=== PATIENT | male | born 1945 | race Caucasian/White ===

== ENCOUNTER 2020-11-06 11:08 | Inpatient (IN) | payer MEDICARE, SELFPAY ==
[2020-11-06] VITALS (19 sets, daily range): BP systolic 97–143; BP diastolic 59–101; PULSE 85–117; RESP 14–25; TEMP 36.6–37.1; O2SAT 95–100; BMI 17.3
--- NOTE | 2020-11-06 11:09 | ECG_ITS ---
[facility] Test Date: 2020-11-06 Pat Name: Geo Yip Department: Room: Gender: Male Director Facilities Maintenance: : 1945 Requested By: Ab Hopkins Order Number: [id number] Sai MD: Nasim Cordero M.D. Measurements Intervals [place] Rate: 97 P: [place]: QRS: 122 QRSD: 142 T: 75 QT: 375 QTc: 478 Interpretive Statements ATRIAL FIBRILLATION MARKED RIGHT AXIS DEVIATION [QRS AXIS > 100] RIGHT BUNDLE BRANCH BLOCK [120+ ms QRS DURATION, UPRIGHT V1, 40+ ms S IN I/aVL/V4/V5/V6] Compared to ECG 01/05/2019 20:08:41 Sinus rhythm no longer present Sinus arrhythmia no longer present Myocardial infarct finding no longer present Electronically Signed On 11-06-2020 17:31:19 CDT by Nasim Cordero M.D. [id number] f
[2020-11-06 11:32] LABS: Basophils % 0.4 %; Eosinophils % 0.5 %; Hemoglobin 13.7 g/dL (11.7-16.6); Lymphocytes # 0.5 10^3/uL (0.8-4.8); Lymphocytes % 6.2 %; Mean Corpuscular HGB Conc 31.9 g/dL (30.0-36.0); Mean Corpuscular Volume 97.3 fL (80-94); Monocytes # 0.6 10^3/uL (0.2-0.9); Monocytes % 7.6 %; Neutrophils % 84.9 %; Nucleated Red Blood Cells % 0 %; Platelet Count 176 10^3/cmm (130-400); Red Blood Count 4.42 10^6/uL (4.1-5.3); Red Cell Distribution Width 13.2 % (12.1-15.1); White Blood Count 7.9 10^3/uL (4.0-10.0)
--- NOTE | 2020-11-06 11:38 | W.ED.CHESTPA ---
HPI - Chest Pain General: Chief Complaint: Chest Pain Stated Complaint: CHEST PAIN ONSET 0930 Time Seen by Provider: 11/06/20 11:09 History of Present Illness: HPI narrative: 75-year-old male presents emergency room with complaints of chest discomfort again around 930 this morning radiating into his shoulders he describes the pain as central substernal radiating up into the shoulders. He did have shortness of breath with it. He has known COPD is chronically short of breath as a baseline nonproductive cough which remains unchanged he denies any fever. He has known coronary disease and previously has had several angiograms including stenting with some in-stent stenosis that required follow-up PTCA with extension of his stents. He also has a history of atrial fibrillation he is on clopidogrel but does not list on his medications any anticoagulants. MD complaint: chest discomfort Pertinent past history: coronary artery disease Onset (ago): hour(s) Timing of current episode: episodic Prior episodes: Yes Onset: during rest Pain location: left chest Pain radiation: neck and jaw/teeth Severity: moderate Quality: tightness and heaviness Relieving factors: nitroglycerin Exacerbating factors: nothing Associated symptoms: Reports diaphoresis and dyspnea; Deny abdominal pain, fever(s), leg edema, nausea, palpitations, sense of impending doom, syncope or vomiting Treatment prior to arrival: aspirin Review of Systems Const: Reports: diaphoresis; Denies: fever(s) ENMT: Denies: throat pain, ear or mastoid pain, nasal discharge or nasal congestion Card: Denies: palpitations or syncope Resp: Reports: dyspnea GI: Denies: abdominal pain, nausea or vomiting : Denies: flank pain, dysuria, urinary frequency or urinary urgency Skin/Breast: Denies: rash or pruritus PFSH ED PFSH: Medical History Abdominal aortic aneurysm BPH (benign prostatic hyperplasia) CAD (coronary artery disease) COPD (chronic obstructive pulmonary disease) HLD (hyperlipidemia) Seizure Surgical History History of appendectomy S/P PTCA (percutaneous transluminal coronary angioplasty) Family History Other CAD (coronary artery disease) Cancer Social History Smoking and tobacco status: current every day smoker Alcohol intake: never Substance/Drug Use: never Lives independently: Yes Household members: spouse Housing: House Physical Exam Const: COMMON NORMALS: no acute distress GENERAL APPEARANCE: cooperative and comfortable ORIENTATION/CONSCIOUSNESS: Yes awake, Yes oriented to person, Yes oriented to place and Yes oriented to time HENMT: COMMON NORMALS: normocephalic, atraumatic, hearing grossly normal bilaterally and external ears normal HEAD & SCALP: normocephalic and atraumatic EXTERNAL EAR: Yes external ears normal Neck/C-Spine: COMMON NORMALS: no JVD Resp: COMMON NORMALS: normal respiratory effort, No retractions, No use of accessory muscles and clear to auscultation bilaterally AUSCULTATION: clear to auscultation bilaterally Cardio: COMMON NORMALS: no JVD, regular rate, regular rhythm and No murmurs present (Cardio) RATE: regular rate RHYTHM: regular rhythm GI: COMMON NORMALS: Soft to palpation and No hepatosplenomegaly present AUSCULTATION: Yes normoactive bowel sounds PALPATION: Yes Soft to palpation, No Tenderness to palpation present (GI), No Guarding due to palpation present (GI) and Yes No hepatosplenomegaly present Extremity: COMMON NORMALS: normal to inspection, capillary refill normal, no clubbing, cyanosis or edema, no calf tenderness and no pedal edema Neuro: SENSORIUM/ORIENTATION: Yes oriented to person, Yes oriented to place and Yes oriented to time Skin: COMMON NORMALS: no rashes or lesions noted GENERAL SKIN EXAM: no rashes or lesions noted Course Vital Signs: Vital signs: Vital Signs Temperature 98.1 F 11/08/20 07:31 Pulse Rate 57 L 11/08/20 07:31 Respiratory Rate 16 11/08/20 07:31 Blood Pressure 97/59 11/08/20 07:31 Pulse Oximetry 93 11/08/20 07:31 MDM - Chest Pain MDM Narrative: Medical decision making narrative: Chest discomfort improved with nitro he was given aspirin in route by EMS will admit for further rule out given his strong history of coronary artery disease has not had any evaluation for several years. Lab Data: Labs: Lab Results 11/06/20 11/06/20 11/06/20 Range/Units 11:24 11:24 11:24 WBC 7.9 (4.0-10.0) 10^3/ uL RBC 4.42 (4.1-5.3) 10^6/u L Hgb 13.7 (11.7-16.6) g/dL Hct 43.0 (42.0-52.0) % MCV 97.3 H (80-94) fL MCH 31.0 (28.0-34.0) pg MCHC 31.9 (30.0-36.0) g/dL RDW 13.2 (12.1-15.1) % Plt Count 176 (130-400) 10^3/c mm MPV 10.0 (7.4-10.4) fL Neut % (Auto) 84.9 % Lymph % (Auto) 6.2 % [place] % (Auto) 7.6 % Eos % (Auto) 0.5 % Baso % (Auto) 0.4 % Neut # (Auto) 6.70 (1.8-7.7) 10^3/u L Lymph # (Auto) 0.5 L (0.8-4.8) 10^3/u L [place] # (Auto) 0.6 (0.2-0.9) 10^3/u L Eos # (Auto) 0.0 (0.0-0.8) 10^3/u L Baso # (Auto) 0.0 (0.0-0.1) 10^3/u L Nucleated RBC % (a uto) 0 % Nucleated RBCs # 0.0 /100WBC D-Dimer (0-0.59) ug/mIFE U Sodium 136 (136-145) mmol/L Potassium 5.2 H (3.5-5.1) mmol/L Chloride 96 L (98-107) mmol/L Carbon Dioxide 32 H (22-29) mmol/L Anion Gap 13.2 (5-19) BUN 11 (8-23) mg/dL Creatinine 0.7 (0.7-1.2) mg/dL GFR Calculation Not Reportable Glucose 91 (65-115) mg/dL Calculated Osmolal ity 281 L (285-295) mOsm/k g Calcium 9.2 (8.5-10.5) mg/dL Iron (59-158) ug/dL TIBC mcg/dl % Saturation (20-50) % Unsat Iron Binding (112-347) ug/dL Total Bilirubin 0.4 (0.15-1.2) mg/dL AST 19 (0-40) U/L ALT 14 (0-41) U/L Alkaline Phosphata se 121 (40-130) IU/L Troponin T Baselin e 63 H (0-15) ng/L Troponin T 120 Min [place] (0-15) ng/L Delta Troponin T (0-10) ABS# NT-Pro-B Natriuret Pep (0-450) pg/mL Total Protein 6.3 L (6.6-8.7) g/dL Albumin 4.4 (3.5-5.2) g/dL Globulin 1.9 (1.3-4.6) g/dL Procalcitonin (0-0.5) ng/mL TSH (0.27-4.20) uIU/ mL Influenza Type A A g (Negative) Influenza Type B A g (Negative) 11/06/20 11/06/20 11/06/20 Range/Units 11:24 11:24 13:17 WBC (4.0-10.0) 10^3/ uL RBC (4.1-5.3) 10^6/u L Hgb (11.7-16.6) g/dL Hct (42.0-52.0) % MCV (80-94) fL MCH (28.0-34.0) pg MCHC (30.0-36.0) g/dL RDW (12.1-15.1) % Plt Count (130-400) 10^3/c mm MPV (7.4-10.4) fL Neut % (Auto) % Lymph % (Auto) % [place] % (Auto) % Eos % (Auto) % Baso % (Auto) % Neut # (Auto) (1.8-7.7) 10^3/u L Lymph # (Auto) (0.8-4.8) 10^3/u L [place] # (Auto) (0.2-0.9) 10^3/u L Eos # (Auto) (0.0-0.8) 10^3/u L Baso # (Auto) (0.0-0.1) 10^3/u L Nucleated RBC % (a uto) % Nucleated RBCs # /100WBC D-Dimer (0-0.59) ug/mIFE U Sodium (136-145) mmol/L Potassium (3.5-5.1) mmol/L Chloride (98-107) mmol/L Carbon Dioxide (22-29) mmol/L Anion Gap (5-19) BUN (8-23) mg/dL Creatinine (0.7-1.2) mg/dL GFR Calculation Glucose (65-115) mg/dL Calculated Osmolal ity (285-295) mOsm/k g Calcium (8.5-10.5) mg/dL Iron 58 L (59-158) ug/dL TIBC 197 mcg/dl % Saturation 29.4 (20-50) % Unsat Iron Binding 139 (112-347) ug/dL Total Bilirubin (0.15-1.2) mg/dL AST (0-40) U/L ALT (0-41) U/L Alkaline Phosphata se (40-130) IU/L Troponin T Baselin e (0-15) ng/L Troponin T 120 Min [place] 93.10 H (0-15) ng/L Delta Troponin T 30.10 H* (0-10) ABS# NT-Pro-B Natriuret Pep 1391 H (0-450) pg/mL Total Protein (6.6-8.7) g/dL Albumin (3.5-5.2) g/dL Globulin (1.3-4.6) g/dL Procalcitonin 0.03 (0-0.5) ng/mL TSH 2.86 (0.27-4.20) uIU/ mL Influenza Type A A g (Negative) Influenza Type B A g (Negative) 11/06/20 11/06/20 Range/Units 15:51 15:58 WBC (4.0-10.0) 10^3/ uL RBC (4.1-5.3) 10^6/u L Hgb (11.7-16.6) g/dL Hct (42.0-52.0) % MCV (80-94) fL MCH (28.0-34.0) pg MCHC (30.0-36.0) g/dL RDW (12.1-15.1) % Plt Count (130-400) 10^3/c mm MPV (7.4-10.4) fL Neut % (Auto) % Lymph % (Auto) % [place] % (Auto) % Eos % (Auto) % Baso % (Auto) % Neut # (Auto) (1.8-7.7) 10^3/u L Lymph # (Auto) (0.8-4.8) 10^3/u L [place] # (Auto) (0.2-0.9) 10^3/u L Eos # (Auto) (0.0-0.8) 10^3/u L Baso # (Auto) (0.0-0.1) 10^3/u L Nucleated RBC % (a uto) % Nucleated RBCs # /100WBC D-Dimer 1.28 H (0-0.59) ug/mIFE U Sodium (136-145) mmol/L Potassium (3.5-5.1) mmol/L Chloride (98-107) mmol/L Carbon Dioxide (22-29) mmol/L Anion Gap (5-19) BUN (8-23) mg/dL Creatinine (0.7-1.2) mg/dL GFR Calculation Glucose (65-115) mg/dL Calculated Osmolal ity (285-295) mOsm/k g Calcium (8.5-10.5) mg/dL Iron (59-158) ug/dL TIBC mcg/dl % Saturation (20-50) % Unsat Iron Binding (112-347) ug/dL Total Bilirubin (0.15-1.2) mg/dL AST (0-40) U/L ALT (0-41) U/L Alkaline Phosphata se (40-130) IU/L Troponin T Baselin e (0-15) ng/L Troponin T 120 Min [place] (0-15) ng/L Delta Troponin T (0-10) ABS# NT-Pro-B Natriuret Pep (0-450) pg/mL Total Protein (6.6-8.7) g/dL Albumin (3.5-5.2) g/dL Globulin (1.3-4.6) g/dL Procalcitonin (0-0.5) ng/mL TSH (0.27-4.20) uIU/ mL Influenza Type A A g Negative (Negative) Influenza Type B A g Negative (Negative) Discharge Plan Discharge Patient Disposition: Admitted As Inpatient Admit Provider: Carrington Mandel Clinical Impression: Unstable angina pectoris, CAD (coronary artery disease), COPD (chronic obstructive pulmonary disease) Condition: Stable Coding Level of Care Code ED Cutter Hand for g Fwd Exam Comprehensive
[2020-11-06 11:52] LABS: Troponin(5th) Baseline 63 ng/L (0-15)
[2020-11-06 11:53] LABS: Alanine Aminotransferase 14 U/L (0-41); Albumin Level 4.4 g/dL (3.5-5.2); Alkaline Phosphatase 121 IU/L (40-130); Anion Gap 13.2 (5-19); Aspartate Amino Transferase 19 U/L (0-40); Blood Urea Nitrogen 11 mg/dL (8-23); Calcium 9.2 mg/dL (8.5-10.5); Carbon Dioxide 32 mmol/L (22-29); Chloride 96 mmol/L (98-107); Globulin 1.9 g/dL (1.3-4.6); Glucose 91 mg/dL (65-115); Osmolality Calculated 281 mOsm/kg (285-295); Potassium 5.2 mmol/L (3.5-5.1); Sodium 136 mmol/L (136-145); Total Bilirubin 0.4 mg/dL (0.15-1.2); Total Protein 6.3 g/dL (6.6-8.7)
--- NOTE | 2020-11-06 13:09 | ECG_ITS ---
[facility] Test Date: 2020-11-06 Pat Name: Geo Yip Department: Room: Gender: Male Case Assistant: : 1945 Requested By: Ab Hopkins Order Number: [id number] Sai MD: Nasim Cordero M.D. Measurements Intervals [place] Rate: 100 P: [place]: QRS: 121 QRSD: 144 T: 79 QT: 370 QTc: 479 Interpretive Statements ATRIAL FIBRILLATION WITH RAPID VENTRICULAR RESPONSE MARKED RIGHT AXIS DEVIATION [QRS AXIS > 100] RIGHT BUNDLE BRANCH BLOCK [120+ ms QRS DURATION, UPRIGHT V1, 40+ ms S IN I/aVL/V4/V5/V6] PROBABLE ANTERIOR MYOCARDIAL INFARCTION [35 ms Q WAVE IN V3/V4], OF INDETERMINATE AGE Compared to ECG 11/06/2020 11:16:07 Myocardial infarct finding now present Electronically Signed On 11-06-2020 17:37:49 CDT by Nasim Cordero M.D. [id number]
[2020-11-06] MEDS: enoxaparin 60 mg/0.6 mL Syringe SUBCUT (14:08)
[2020-11-06] MEDS: nitroglycerin drip 50 MG/250 ML PREMIX IV (14:10)
[2020-11-06] MEDS: morphine 4 mg/mL SDV 1 mL 2 MG IVP ×2 (14:29→20:05)
--- NOTE | 2020-11-06 14:43 | P.HP_ITS ---
Providers/Chief Complaint Primary Care Provider: Carmelita Piper MD Chief Complaint: CHEST PAIN ONSET 929 History of Present Illness Geo Yip is a 75 year old male with past medical history of CAD, post PTCA, advanced COPD, on chronic oxygen with 3 L, BPH, seizure disorder presents to the ER today with ongoing chest pain since today morning. Patient states he has been not been feeling well for last 3 to 4 days with occasional chest heaviness and chest pain on exertion. Chest symptoms are also short-lived with difficulty in breathing on and off. He states his cough, difficulty breathing, expectoration is at baseline. Usually he gets out of breath on exertion but is able to carry his ADLs. He is currently on 3 L oxygen supplementation and is doing well on the same currently. He states today morning since around 9:30 AM he has been having more of central chest pain going bilaterally to his shoulders more so towards the left with occasional referral to the jaw as well associated with mild nausea on and off bu t no vomiting or dizziness or palpitations. Patient is not aware of history of atrial fibrillation. He denies any loss of consciousness. 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 He states there has not been change in his medications recently. He denies any fever, subjective fevers, hemoptysis, known exposure to COVID-19, denies receiving COVID-19 vaccine as well. Blood work in the ER showed a white count 7.9, hemoglobin of 13.7, sodium of 136, chloride of 96, potassium of 5.2, carbon dioxide 32, creatinine of 0.7, AST/ALT of 19/14, baseline troponin of 63 with a delta of 30 in 2 hours, EKG showing atrial fibrillation with right bundle branch block with rate of around 96 bpm. Review of Systems General: Reports: 10 or more systems reviewed and unremarkable except in HPI and below Const: Denies: fever(s), chills, body aches, change in appetite, change in weight, malaise, night sweats, diaphoresis, change in sleep pattern, daytime sleepiness or snoring Eyes: Denies: change in vision, blurry vision, photophobia, eye discomfort or eye discharge ENMT: Denies: throat pain, enlarged tonsils, hoarseness, mouth pain, oral sores, dry mouth, tinnitus, nasal congestion or post nasal drip Card: Denies: chest pain, palpitations, irregular heart rhythm, edema, swelling of feet/ankles, lightheadedness, syncope, pre-syncope, dyspnea on exertion, orthopnea, leg pain with exertion or acrocyanosis Resp: Denies: dyspnea, productive cough, non-productive cough, wheezing, stridor, pain on inspiration, change in phlegm color, hemoptysis or chest congestion GI: Denies: abdominal pain, nausea, vomiting, hematemesis, coffee ground emesis, dysphagia, heartburn, diarrhea, constipation, bloating, GI cramping, change in bowel habits, pain on defecation, hematochezia or melena : Denies: flank pain, difficulty urinating, dysuria, urinary frequency, urinary urgency, urinary hesitancy, urinary dribbling, difficulty starting urination, change in urine stream, nocturia or hematuria Musc: Denies: neck pain, back pain, extremity pain, joint pain, joint swelling, joint redness, joint stiffness or limited range of motion Neuro: Denies: headache(s), numbness in extremities, weakness in extremities, sensory changes, lack of coordination, difficulty walking, frequent falls, dizziness, vertigo, confusion, Slurred speech present, difficulty communicating thoughts or seizure-like activity Psych: Denies: anxiety, depression, mood swings, panic attacks, hopelessness or irritability Endo: Denies: polyuria, polydipsia, tired all the time, cold intolerance, excessive sweating, flushing or heat intolerance Adama/Lymph: Denies: easy bruising or easy bleeding All/Imm: Denies: tongue swelling, facial swelling or acute wheezing Medications/Allergies Home Medications Medication Instructions Recorded Confirmed Last Taken Type hxviccdmmz-qegciqqp-drlnsbwiyt 2 inh INHALATION BID 11/06/20 11/06/20 Unknown [facility] clopidogrel 75 mg PO DAILY 11/06/20 11/06/20 11/06/20 History epinephrine 0.3 mg SUBCUT ONCE PRN 11/06/20 11/06/20 Unknown History ezetimibe 10 mg PO DAILY 11/06/20 11/06/20 11/05/20 History felodipine 2.5 mg PO DAILY 11/06/20 11/06/20 11/06/20 History fluticasone propion-salmeterol 1 inh INHALATION BID 11/06/20 11/06/20 11/06/20 History [[facility]] hydrocodone-acetaminophen 1 tab PO Q6H PRN 11/06/20 11/06/20 11/06/20 History ipratropium-albuterol [Combivent 2 puff INHALATION QID 11/06/20 11/06/20 11/06/20 History Respimat] metoprolol tartrate 25 mg PO BID 11/06/20 11/06/20 11/06/20 History nitroglycerin 0.4 mg SUBLINGUAL Q5MIN PRN 11/06/20 11/06/20 Unknown History phenobarbital 97.2 mg PO BID 11/06/20 11/06/20 11/06/20 History simvastatin 80 mg PO DAILY 11/06/20 11/06/20 11/05/20 History tamsulosin 0.8 mg PO DAILY 11/06/20 11/06/20 11/06/20 History Allergies Allergy/AdvReac Type Severity Reaction Status Date / Time No Known Allergies Allergy Unverified 11/06/20 11:42 PFSH Acute PFSH: Medical History (Updated 11/06/20 @ 14:59 by Carrington Mandel MD) Abdominal aortic aneurysm BPH (benign prostatic hyperplasia) CAD (coronary artery disease) COPD (chronic obstructive pulmonary disease) HLD (hyperlipidemia) Seizure Surgical History (Updated 11/06/20 @ 14:53 by Carrington Mandel MD) History of appendectomy S/P PTCA (percutaneous transluminal coronary angioplasty) Family History (Updated 11/06/20 @ 14:53 by Carrington Mandel MD) Other CAD (coronary artery disease) Cancer Social History (Updated 11/06/20 @ 14:54 by Carrington Mandel MD) Smoking and tobacco status: current every day smoker Alcohol intake: never Substance/Drug Use: never Lives independently: Yes Household members: spouse Housing: House Vitals/I&O/Wt Last Vital Signs Temp 98.2 F 11/06/20 11:14 Pulse 98 11/06/20 13:04 Resp 18 11/06/20 14:29 BP 129/93 11/06/20 13:04 Pulse Ox 96 11/06/20 13:04 Weight last 48 hrs Weight 58.06 kg Physical Exam Narrative: EXAM NARRATIVE: General: No acute distress, AO x3, cachectic, barrel chest, on 3 L nasal cannula, thin built HEENT: PERRLA, pupils bilaterally equal and reactive Chest: Bilateral bronchial breath sounds, occasional rhonchi over the lung hercules, equal air entry all over the lung hercules CVS: S1-S2 irregularly irregular, no murmurs, tachycardia, no gallops, no rubs Abdomen: Soft, nontender, no organomegaly, bowel sounds present Neuro: No focal deficits, no facial deformity, AO x3, power 5/5 in all limbs Data : 11/06/20 11:24 11/06/20 11:24 A&P Assessment and plan (1) NSTEMI (non-ST elevated myocardial infarction): Status: Acute (2) CAD (coronary artery disease): Status: Acute (3) Chest pain: Status: Acute (4) Afib: Status: Acute (5) BPH (benign prostatic hyperplasia): Status: Acute (6) COPD (chronic obstructive pulmonary disease): Status: Acute (7) HLD (hyperlipidemia): Status: Acute Additional A&P Information 75-year-old gentleman past medical history of CAD, post PTCA, advanced COPD presented to the ER today with ongoing chest pain and found to have atrial fibrillation with RBBB with positive delta on troponins in 2 hours. Non-ST elevation DC: Continue to follow troponins. Continue with nitro GGT. Monitor blood pressures. Aspirin 325 mg once followed by 81 mg daily. Continue with Plavix, metoprolol 25 mg twice daily, statin and ezetimibe. Start patient on Lovenox 1 mg/kg body weight every 12 hourly as per creatinine clearance. Check echocardiogram. Will consult cardiology for further recommendations with possible cardiac cath. N.p.o. after midnight. Morphine as needed. Oxygen supplementation keeping saturation over 90%. Atrial fibrillation: Patient is not aware of the history in the past. Echocardiogram as above. Currently rate controlled. Continue with metoprolol. Will uptitrate metoprolol if needed. If atrial fibrillation persist will discuss with the patient regarding need of anticoagulation. COPD: No advance exacerbation for now. Continue with DuoNebs, budesonide. Oxygen supplementation. CT chest without contrast. Patient does not have any leukocytosis, is afebrile, denies any exposure to COVID-19, denies any change in cough or expectoration or difficulty in breathing at present. Chances of infectious source is low for now. Check procalcitonin, MRSA swab, sputum culture, CT chest without contrast, bacterial antigen, urine Legionella, urinalysis, rapid flu. History of seizure disorder. History of hyperlipidemia. History of BPH. Check iron panel, TSH, lipid panel, A1c, ferritin CODE STATUS: Patient states he does not want to be on life support and would not want any chest compressions as well. Patient's left is bedside as well. CODE STATUS allow natural . Cardiac diet, n.p.o. after midnight. Full dose Lovenox will help with DVT prophylaxis. Attestations Medical Necessity Statement*: Admission for more than 2 midnights for non-ST elevation DC and history of CAD, advanced COPD, new atrial fibrillation Time Spent in Patient Care: Greater than 35 minutes (>than 50% of time spent in counselling and/or direct pt care on unit) . Coding Level of Care Code Acute Faculty Research Physician for [facility] Diagnoses NSTEMI (non-ST elevated myocardial infarction) I21.4 CAD (coronary artery disease) I25.10 Chest pain R07.9 Afib I48.91 BPH (benign prostatic hyperplasia) N40.0 COPD (chronic obstructive pulmonary disease) J44.9 HLD (hyperlipidemia) E78.5
--- NOTE | 2020-11-06 14:45 | CT_ITS ---
WS: [id number] CT CHEST TECHNIQUE: Noncontrast CT of the chest with coronal and sagittal reformatted images. CLINICAL INFORMATION: copd/pna COMPARISON: CT chest and CTA 2016 DLP: 361.[address] scans at [facility] use at least one of these dose optimization techniques: automat ed exposure control; mA and/or kV adjustment per patient size (includes targeted exams where dose is matched to clinical indication); or iterative reconstruction. FINDINGS: Advanced chronic emphysematous changes. Masslike fibrotic appearing opacity in the right upper lobe p osteriorly abutting the pleura. This is new since 2016. Measures approximately 1.6 x 3.7 x 3.3 cm AP by transverse by craniocaudal. This is not amenable to CT-guided biopsy. This can be further evaluate d PET/CT. Slightly spiculated opacity in the left upper lobe likely chronic fibrosis measuring 2.0 cm but indet erminant. Several additional noncalcified subcentimeter nodules in both upper lobes anteriorly some with spicul ation. Largest lesion in the right upper lobe anteriorly measuring 9 mm. These are new since 2016. Smaller 6 mm noncalcified lesion in the left upper lobe anteriorly is stable since 2016. Interstitial thickening within the lingula likely inflammatory. Additional noncalcified nodule in the left lower lobe laterally is stable since 2016 measuring 6 mm. Interstitial thickening in the left lower lobe wi th subsegmental atelectasis. Normal caliber thoracic aorta. Aortic calcification. Coronary calcification. No mediastinal or hilar lymphadenopathy. No axillary lymphadenopathy. Partially visualized left renal cyst. CT/CT chest wo con [id number] IMPRESSION: 1. Fibrotic appearing masslike opacity in the right upper lobe posteriorly josselin r the lung apex abutting the pleura. This measures approximately approximately 1.6 x 3.7 x 3.3 cm AP by transverse by craniocaudal. This is not amenable to CT -guided biopsy. This can be further evaluated PET/CT. 2. Spiculated fibrotic appearing opacity in the left upper lobe near the lung apex measuring 2.1 cm may represent fibrosis but also nonspecific. 3. Numerous additional new subcentimeter pulmonary nodules in both upper lobes anteriorly some with suspicious imaging characteristics with spiculation. Larg est lesions measure 9 mm in the right upper lobe. These can also be further courtney luated with PET/CT. Malignancy is not excluded. 4. Additional smaller stable pulmonary nodules described above. 5. Advanced chronic emphysematous changes. 6. No acute pulmonary infiltrates. 7. No mediastinal or hilar lymphadenopathy.
[2020-11-06 16:09] LABS: NT Pro B Type Natriuretic Pept 1391 pg/mL (0-450); Procalcitonin 0.03 ng/mL (0-0.5)
--- NOTE | 2020-11-06 16:15 | PC.NURSE ---
Bedside report received from [facility]ER once patient arrived to the floor. Patient arrived via stretcher. Patient has nitro gtt running, patient has been oriented to room and call conroy, denies chest pain at this time. Nurse will continue to monitor blood pressure and chest pain.
[2020-11-06 16:20] LABS: Thyroid Stimulating Hormone 2.86 uIU/mL (0.27-4.20)
[2020-11-06 16:21] LABS: Iron 58 ug/dL (59-158); Percent Saturation 29.4 % (20-50); Total Iron Binding Capacity 197 mcg/dl; Unsaturated Iron Binding 139 ug/dL (112-347)
[2020-11-06 17:03] LABS: D Dimer 1.28 ug/mIFEU (0-0.59)
--- NOTE | 2020-11-06 17:09 | ECG_ITS ---
[facility] Test Date: 2020-11-06 Pat Name: Geo Yip Department: Room: 105 Gender: Male Education And Development Manager: : 1945 Requested By: Ab Hopkins Order Number: [id number] Sai MD: Nasim Cordero M.D. Measurements Intervals [place] Rate: 102 P: ND: QRS: 107 QRSD: 146 T: 79 QT: 338 QTc: 442 Interpretive Statements ATRIAL FIBRILLATION WITH RAPID VENTRICULAR RESPONSE MARKED RIGHT AXIS DEVIATION [QRS AXIS > 100] RIGHT BUNDLE BRANCH BLOCK [120+ ms QRS DURATION, UPRIGHT V1, 40+ ms S IN I/aVL/V4/V5/V6] POSSIBLE ANTERIOR MYOCARDIAL INFARCTION [30 ms Q WAVE IN V3/V4, OR R < 0.2 mV IN V4], OF INDETERMINATE AGE Compared to ECG 11/06/2020 13:12:38 No significant changes Electronically Signed On 11-06-2020 17:35:38 CDT by Nasim Cordero M.D. [id number]
--- NOTE | 2020-11-06 17:15 | PM.CONSULT ---
Providers/Reason For Consult Consulting Physician/Specialty*: Nasim Cordero MD/ Cardiology Reason for Consult*: NSTEMI Requesting Physician: Dr Laurent Attending Physician: Carrington Mandel MD Primary Care Provider: Carmelita Piper MD History of Present Illness History of Present Illness Geo Yip is a 75 year old male with past medical history of coronary artery disease status post PCI several years ago, advanced COPD, hypertension and hyperlipidemia has presented with chest pain symptoms since morning. He has been having on and off chest discomfort. He was put on nitro drip. Since starting the nitro drip chest pain has improved. His initial troponin was 63. It trended up to 93 at 2 hours. He has been started on Lovenox. His blood pressure is controlled. He also has been noted to be in new onset A. fib with RVR. EKG does not demonstrate ischemic changes. Review of Systems Narrative: CONSTITUTIONAL: No fever chills weight loss or gain or night sweats. [] HEENT: Normocephalic, atraumatic.[] RESPIRATORY: No cough, sputum, hemoptysis or wheezing.[] CARDIOVASCULAR: has chest pain, has shortness of breath, no PND, orthopnea, lower extremity edema, presyncope or syncope. [] GI: no nausea vomiting diarrhea. [] CATALOGUE ILLUSTRATOR: No numbness, tingling, weakness or loss of function in any part of the body. [] MUSCULOSKELETAL: No knee or joint pain or rashes. [] Meds/Allergies Home Medications and Allergies Home Medications Medication Instructions Recorded Confirmed Last Taken Type ajpreprloy-ipvojdza-spqribvwlo 2 inh INHALATION BID 11/06/20 11/06/20 Unknown History [Breztri Aerosphere] clopidogrel 75 mg PO DAILY 11/06/20 11/06/20 11/06/20 History epinephrine 0.3 mg SUBCUT ONCE PRN 11/06/20 11/06/20 Unknown History ezetimibe 10 mg PO DAILY 11/06/20 11/06/20 11/05/20 History felodipine 2.5 mg PO DAILY 11/06/20 11/06/20 11/06/20 History fluticasone propion-salmeterol 1 inh INHALATION BID 11/06/20 11/06/20 11/06/20 History [Wixela Inhub] hydrocodone-acetaminophen 1 tab PO Q6H PRN 11/06/20 11/06/20 11/06/20 History ipratropium-albuterol [Combivent 2 puff INHALATION QID 11/06/20 11/06/20 11/06/20 History Respimat] metoprolol tartrate 25 mg PO BID 11/06/20 11/06/20 11/06/20 History nitroglycerin 0.4 mg SUBLINGUAL Q5MIN PRN 11/06/20 11/06/20 Unknown History phenobarbital 97.2 mg PO BID 11/06/20 11/06/20 11/06/20 History simvastatin 80 mg PO DAILY 11/06/20 11/06/20 11/05/20 History tamsulosin 0.8 mg PO DAILY 11/06/20 11/06/20 11/06/20 History Allergies Allergy/AdvReac Type Severity Reaction Status Date / Time No Known Allergies Allergy Unverified 11/06/20 11:42 Current Medications Current Medications Generic Name Dose Route Start Last Admin Trade Name Freq PRN Reason Stop Dose Admin Nitroglycerin/Dextrose 50 mg in 250 mls @ 0 mls/hr 11/06/20 14:00 11/06/20 14:10 Nitroglycerin Drip IV 5 mcg/min .Q0M STEPHANIE 1.5 mls/hr Administration Protocol Per Protocol PFSH Acute PFSH: Medical History Abdominal aortic aneurysm BPH (benign prostatic hyperplasia) CAD (coronary artery disease) COPD (chronic obstructive pulmonary disease) HLD (hyperlipidemia) Seizure Surgical History History of appendectomy S/P PTCA (percutaneous transluminal coronary angioplasty) Family History Other CAD (coronary artery disease) Cancer Social History Smoking and tobacco status: current every day smoker Alcohol intake: never Substance/Drug Use: never Lives independently: Yes Household members: spouse Housing: House Vitals/I&O/Wt Last Vital Signs Temp 98.2 F 11/06/20 11:14 Pulse 110 H 11/06/20 15:40 Resp 21 H 11/06/20 15:40 BP 113/79 11/06/20 15:40 Pulse Ox 97 11/06/20 15:35 Weight last 48 hrs Weight 128 lb Physical Exam Narrative: EXAM NARRATIVE: GENERAL: Patient is alert, awake and oriented x3.Cachectic, barrel chest. [] NECK: No jugular vein distension. [] HEENT: No cyanosis. No icterus. No pallor. [] HEART: Irregularly irregular, tachycardia. No murmur, rub or gallop. [] LUNGS: Clear to auscultate bilaterally. [] ABDOMEN: Soft, nontender and nondistended. Positive bowel sounds. No guarding, rebound or tenderness. [] CENTRAL NERVOUS SYSTEM: Grossly nonfocal. [] EXTREMITIES: Lower extremities with 1+ edema bilaterally. Pulses palpable in the lower extremities, both dorsalis pedis and posterior tibial. [] Data Micro: Micro: Microbiology 11/06/20 15:58 Blood Culture - Pr eliminary Blood SPECIMEN [facility] 11/06/20 16:00 Blood Culture - Pr eliminary Blood SPECIMEN [facility] A&P Assessment and plan (1) NSTEMI (non-ST elevated myocardial infarction): Status: Acute (2) Afib: Status: Acute (3) HLD (hyperlipidemia): Status: Acute (4) CAD (coronary artery disease): Status: Acute (5) COPD (chronic obstructive pulmonary disease): Status: Acute Patient's presentation is consistent with NSTEMI. Chest pain is resolved with nitro drip. Continue anticoagulation. Continue aspirin and Plavix. Plan on coronary angiogram in the morning. Keep n.p.o. past midnight. Risks and benefits of the procedure have been discussed with the patient who agrees with proceeding. Trend troponins. Order echocardiogram. Thank you for involving us with the care of this patient. We will continue to follow. Please call with questions. Coding Level of Care Code Acute Camera Supervisor for [facility] Diagnoses NSTEMI (non-ST elevated myocardial infarction) I21.4 Afib I48.91 HLD (hyperlipidemia) E78.5 CAD (coronary artery disease) I25.10 COPD (chronic obstructive pulmonary disease) J44.9
[2020-11-06] MEDS: ipratropium-albuterol 3 mL Neb INHALATION (17:21)
[2020-11-06 18:00] LABS: Influenza A by IFA Negative (Negative); Influenza B by IFA Negative (Negative)
[2020-11-06] MEDS: metoprolol tartrate 50 mg Tablet PO (18:20)
[2020-11-06] MEDS: PHENobarbital 32.4 mg Tablet 97.2 MG PO (18:21)
[2020-11-06] MEDS: famotidine 20 mg/2 mL INJ IVP (18:21)
[2020-11-06 18:34] LABS: Troponin 5 6HR 180.7 ng/L (0-15); Troponin 5 6HR Delta 117.7 ng/L (0-12)
[2020-11-07] VITALS (49 sets, daily range): BP systolic 96–139; BP diastolic 58–95; PULSE 63–95; RESP 1–30; TEMP 36.6–37.1; O2SAT 82–98
--- NOTE | 2020-11-07 | XACV_ITS ---
Exam Room: [facility] Ht: 183 cm Wt: 54 kg BSA: 1.64 m2 Gender: Male : 1945 Any Known Allergies: No known allergies Exam Priority: Routine Procedure(s): Procedure Description: Diagnostic procedure Procedure Description: PCI procedure Procedure Description: Drug Eluting Coronary Stent Procedure Description: PTCA Procedure Description: Miscellaneous Procedure Description: ACT Procedure Description: Coronary Angiography Diagnostic Cath Status: Urgent Diagnostic Findings * Proximal Right Coronary Artery: chronic total occlusion, BECKY: 0 flow. Receives collaterals from the left system. * Left Main has no disease. * Mid Left Anterior Descending: obstructive 70% stenosis, BECKY: 3 flow. * Proximal Circumflex: moderate 50% stenosis, BECKY: 3 flow. * Mid Circumflex: significant 80% stenosis, BECKY: 3 flow. * 1st Diagonal: severe 90% stenosis, BECKY: 3 flow. * First Obtuse Marginal Branch Segment: significant 80% stenosis, BECKY: 3 flow. * Coronary angiography shows right dominance. PCI Status: Urgent PCI Indication: NSTE - ACS Interventional Findings * Procedure details: We engaged left main artery with a XB 3.5 guide catheter. IV heparin was administered to maintain an ACT above 250 seconds.We crossed the OM stenosis with a run-through wire. We placed a 2.5x12mm resolute [place] stent. A 0.014 run-through guidewire was used to cross the stenosis and was placed in distal LCx. 3.0x15mm semicompliant balloon was used to predilate the stenosis in the mid LCx. This was followed by placement of 3.0 x 18 mm resolute [place] drug-eluting stent. We postdilated the proximal part of stent with 3.25 x 6 mm NC balloon. At this time final angiogram was performed that showed excellent stent expansion, BECKY-3 flow and no residual stenosis. Guidewire and guide catheter were removed. Patient left the Optical Technician in a stable condition. * Mid Circumflex: 80% stenosis treated with a sapphireIIPro OTW 1.0x8, AB TREK 3.00X15 RX BALLOON, MDT R R[place] 3.0X18 RADHA, MDT NC EUPHORA RX [id number] BALLOON, and MDT R [place] 3.0X8 RADHA. 0% residual stenosis, BECKY: 3 flow. * First Obtuse Marginal Branch Segment: 80% stenosis treated with a MDT R [place] 2.5X12 RADHA. 0% residual stenosis, BECKY: 3 flow. PCI for Multi-vessel Disease: Yes Conclusions 1. Multivessel coronary artery disease. 2. Patient has residual LAD/ Diagonal disease. May require arthrectomy. Will discuss with patient the risks and benefits of the procedure, however the culprit vessel for the NSTEMI appears to be LCx/OM that have been treated with RADHA. 3. Mid Circumflex was treated with a Balloon, Balloon, Drug Eluting Stent, Balloon, and Drug Eluting Stent. 4. First Obtuse Marginal Branch Segment was treated with a Drug Eluting Stent. Recommendations * Aspirin and Plavix for atleast 1 year. * High intensity statin therapy. * Discussion with patient and family regarding the possibility of PCI of LAD/Diagonal based on his goals of care. * Outpatient cardiology follow up in 4 weeks. Interventional RX Recommendation: PCI w/o planned CABG Diagnostic RX Recommendation: PCI w/o planned CABG Anticoagulation: Heparin Pressures Phase:Rest AO : 87 / 68 ( 79 ) @ 6:38:00 AM 97 / 62 ( 78 ) @ 6:59:00 AM 144 / 108 ( 120 ) @ 7:18:00 AM 130 / 82 ( 105 ) @ 7:27:00 AM 137 / 74 ( 100 ) @ 7:38:00 AM 110 / 58 ( 79 ) @ 7:46:00 AM Clinical Evaluation EBL: 5mL-10mL Procedural Details Procedure Consent Obtained. Pre-Procedure Time Out. Identified patient by full name and date of as verbalized by the patient/guarantor. Does the consent match the physician's order: Yes. Accurate & Complete Informed Consent: Yes. Inpatient/Outpatient History & Physical on Chart: Yes. If H&P is completed, is and addenduem needed: No; If yes, is the addendum complete: N/A. Visualize and Verify Site with Patient/Guarantor: N/A. Relevant Radiology Images available: N/A. Pre-op teaching completed and patient verbalized understanding. The risks, benefits, and alternatives of sedation and/or procedure were discussed by physician. The patient agrees to continue. Procedure started. [facility] Clinical Fraility Score: 7: Severely Frail. Optical Technician Indications: ACS <= 24 hours. Chest Pain Symptom Assessment: Typical Angina Symptoms. Cardiovascular Instability: No. Correct patient, site and procedure confirmed by cath team. IV Site on Arrival: 20 gauge in the right forearm. IV Fluids: 0.9% NaCl at KVO. 0 mL infused prior to flue dust laborer. Pre Procedural Pulses: bilateral radial was 3+. Oxygen started at 3liters/min via nasal canula. right groin was prepped with chloroprep then draped in the usual sterile fashion. right radial was prepped with chloroprep then draped in the usual sterile fashion. Baseline sample Acquired. HR: 78 BPM. Equipment: 6F - Radial. Cardiac Cath Pack. ACIST Manifold Kit Model BT 2000. Heparinized Saline (2 units/mL), 1000 mL bag. Physician notified. Physician arrived. Physician scrubbed in. Immediate Pre-Procedure Time Out. Correct Patient: Yes; Correct Procedure: Yes; Correct Site: Yes; Correct Patient Position: Yes; Correct Supplies: Yes; Dried Flammable Prep: Yes; Blood Products Available: N/A;. Lidocaine 1% infiltrated to the right radial. Arterial access obtained. A 5 honduran TIG catheter in over wire. Catheter removed over the exchange wire. A 5 honduran RBL-TG 125cm catheter in over wire. Multiple views taken of right coronary artery. Catheter removed over the exchange wire. 6 honduran JL 4 guide catheter 125 cm was inserted over the wire. Inventory is TR 180cm Runthrough NS extra floppy 0.014 wire. Runthrough guidewire was advanced through the guide catheter to lesion in the mid Circ. Unable to cross lesion due to poor guide support, guidewire removed. Guide catheter out. Inventory is CRD 6 FR XB 3.5 GUIDE. 6 honduran XB 3.5 guide catheter was inserted over the wire. Runthrough guidewire was advanced through the guide catheter to lesion in the OM. ACT drawn. Results 163 seconds. Therapeutic limits - pre-heparin administration 90-150 seconds and monitoring heparin during a vascular procedure >250 seconds. Inflation Number : 1 A MDT R RICHMOND 2.5X12 RADHA -Lot Number# [id number] exp date 08/03/2022 was prepped and advanced across the 1st Ob Jo Ann. The stent was deployed at 12 YOSELYN for 0:27 seconds. Stent balloon out over wire. Results checked. Runthrough repositioned to mid Circ. Runthrough wire out to reshape. Runthrough guidewire was advanced through the guide catheter to lesion in the mid Circ. Runthrough wire out to reshape. Runthrough guidewire was advanced through the guide catheter to lesion in the mid Circ. Wire out. Sapphire II Pro OTW Balloon 1.1doz5tn inserted over the wire to give support to wire to position in circ. Inflation number : 1 A sapphireIIPro OTW 1.0x8 was prepped and advanced across the Mid CX , then inflated to 0 YOSELYN for 0:00 seconds. ACT drawn. Results 213 seconds. Therapeutic limits - pre-heparin administration 90-150 seconds and monitoring heparin during a vascular procedure >250 seconds. Wire out. Runthrough 300 cm guidewire was advanced through the guide catheter to lesion in the mid Circ. Runthrough wire out to reshape. Runthrough 300 cm guidewire was advanced through the guide catheter to lesion in the mid Circ. Runthrough wire out to reshape. Runthrough 300 cm guidewire was advanced through the guide catheter to lesion in the mid Circ. Sapphire OTW balloon out. Inflation number : 2 A AB TREK 3.00X15 RX BALLOON was prepped and advanced across the Mid CX , then inflated to 12 YOSELYN for 0:34 seconds. Balloon out. Results checked. Inflation Number : 3 A MDT R R[place] 3.0X18 RADHA -Lot Number# [id number] exp date 06/16/2022 was prepped and advanced across the Mid CX. The stent was deployed at 12 YOSELYN for 0:27 seconds. Stent balloon out over wire. 3.92clv4nm NC balloon inserted. Unable to cross lesion. Balloon out. Guideliner inserted. Inflation number : 4 A MDT NC EUPHORA RX [id number] BALLOON was prepped and advanced across the Mid CX , then inflated to 12 YOSELYN for 0:17 seconds. Inflation number: 5 The MDT NC EUPHORA RX [id number] BALLOON was reinflated across the Mid CX, to 12 YOSELYN for 0:19 seconds. Balloon out. Guideliner out. MDT R [place] 3.0x8mm stent inserted. Unable to cross lesion. Intact stent removed. Guideliner inserted. Inflation Number : 6 A MDT R [place] 3.0X8 RADHA -Lot Number# [id number] exp date 05/10/2022 was prepped and advanced across the Mid CX. The stent was deployed at 14 YOSELYN for 0:26 seconds. Inflation number: 7 The MDT NC EUPHORA RX 3.06C92OO BALLOON was reinflated across the Mid CX, to 12 YOSELYN for 0:16 seconds. Balloon out. Guideliner out. Results checked. Wire out. Guide catheter out. ACT drawn. Results 163 seconds. Therapeutic limits - pre-heparin administration 90-150 seconds and monitoring heparin during a vascular procedure >250 seconds. Physician scrubbed out. A TR Band was successful obtaining hemostatsis at the Right Radial artery insertion site. TR band placed. Hemostasis obtained. Post Procedure: Pulses reassessed and unchanged. PERRLA. Strong, equal hand mutuel department manager bilaterally. No VTE prophylaxis required. Medication's Wasted: Lidocaine 1% = 18 mL. Medication's Wasted: Nitro = 49.6 mg. Medication's Wasted: Other = versed 1 mg. Total IV fluids: 95.3 mL. Contrast type used: Visipaque 320 mgI/mL, 500 mL bottle. Medication's Wasted: Heparin = 2000 units. Post-op diagnosis: severe multi vessel CAD. PCI Indication: NSTE. Complications: none. Estimated blood loss: 5mL-10mL. Procedure completed. Patient transferred by wheelchair to 1st floor. Vital chart was stopped. Access Site Site: Right Radial artery Sheath Size: 6 Fr Hemostasis Method: TR Band Hemostasis Success: Successful Procedure Medications Start: 7:24 AM Stop: 7:24 AM Medication: Versed Amount: 1 mg Route: I.V. Start: 7:24 AM Stop: 7:24 AM Medication: Fentanyl Amount: 25 mcg Route: I.V. Start: 7:29 AM Stop: 7:29 AM Medication: Nitrogylcerin Amount: 200 mcg Route: I.A. Start: 7:31 AM Stop: 7:31 AM Medication: Heparin Amount: 5000 units Route: I.V. Start: 7:45 AM Stop: 7:45 AM Medication: Heparin Amount: 1000 units Route: I.V. Start: 7:45 AM Stop: 7:45 AM Medication: Versed Amount: 1 mg Route: I.V. Start: 7:45 AM Stop: 7:45 AM Medication: Fentanyl Amount: 25 mcg Route: I.V. Start: 7:56 AM Stop: 7:56 AM Medication: Heparin Amount: 3000 units Route: I.V. Start: 8:10 AM Stop: 8:10 AM Medication: Heparin Amount: 3000 units Route: I.V. Start: 8:11 AM Stop: 8:11 AM Medication: Versed Amount: 1 mg Route: I.V. Start: 8:11 AM Stop: 8:11 AM Medication: Fentanyl Amount: 25 mcg Route: I.V. Start: 8:23 AM Stop: 8:23 AM Medication: Versed Amount: 1 mg Route: I.V. Start: 8:23 AM Stop: 8:23 AM Medication: Fentanyl Amount: 25 mcg Route: I.V. Start: 8:34 AM Stop: 8:34 AM Medication: Versed Amount: 1 mg Route: I.V. Start: 8:37 AM Stop: 8:37 AM Medication: Nitrogylcerin Amount: 200 mcg Route: I.C. Start: 8:59 AM Stop: 8:59 AM Medication: Heparin Amount: 2000 units Route: I.V. I, the attending physician, have reviewed and verified all procedure medications. Yes, all medications given per verbal order History/Risk Factors Hypertension: Yes Dyslipidemia: Yes Peripheral Arterial Disease (PAD): No Myocardial Infarction (VT): No Obesity: No Renal Disease: No Tobacco Use: Current/Recent(w/in 1 year) Prior Interventions PCI: Yes CABG: No Valve Surgery: No Report Signatures Finalized by Nasim Cordero MD on 11/21/2020 07:39 PM
[2020-11-07] MEDS: ipratropium-albuterol 3 mL Neb INHALATION ×2 (02:21→12:41)
[2020-11-07] MEDS: morphine 4 mg/mL SDV 1 mL 2 MG IVP (02:35)
[2020-11-07 02:48] LABS: Bacteria Urine TRACE /hpf; Bilirubin Urine Neg (Negative); Blood Urine Neg (Negative); Glucose Urine UA Norm (Normal); Ketones Urine Negative (Negative); Leukocyte Esterase Urine Negative (Negative); Nitrate Urine Negative (Negative); Protein Urine Neg (Negative); RBC Urine 0-4 /hpf (0-2); Squamous Epithelial Cell Urine 0-4 /hpf (0-5); Urine Appearance Clear (CLEAR); Urine Color Yellow (Yellow); Urobilinogen Urine 4 mg/dL (Negative); WBC Urine 0-4 /hpf (0-5); pH Urine 5 (5-7)
[2020-11-07 05:23] LABS: Basophils % 0.2 %; Eosinophils # 0.1 10^3/uL (0.0-0.8); Eosinophils % 1.9 %; Hematocrit 37.9 % (42.0-52.0); Hemoglobin 12.4 g/dL (11.7-16.6); Lymphocytes # 0.5 10^3/uL (0.8-4.8); Lymphocytes % 11.1 %; Mean Corpuscular HGB Conc 32.7 g/dL (30.0-36.0); Mean Corpuscular Hemoglobin 31.9 pg (28.0-34.0); Mean Corpuscular Volume 97.4 fL (80-94); Mean Platelet Volume 10.2 fL (7.4-10.4); Monocytes # 0.4 10^3/uL (0.2-0.9); Monocytes % 8.8 %; Neutrophils # 3.69 10^3/uL (1.8-7.7); Neutrophils % 77.6 %; Nucleated Red Blood Cells % 0 %; Platelet Count 154 10^3/cmm (130-400); Red Blood Count 3.89 10^6/uL (4.1-5.3); Red Cell Distribution Width 13.2 % (12.1-15.1); White Blood Count 4.8 10^3/uL (4.0-10.0)
[2020-11-07 05:33] LABS: INR 0.99 (0.8-1.2)
[2020-11-07 05:41] LABS: Estmated Average Glucose 88; Hemoglobin A1C 4.7 % (4.0-6.0)
[2020-11-07 05:47] LABS: Alanine Aminotransferase 15 U/L (0-41); Albumin Level 3.4 g/dL (3.5-5.2); Alkaline Phosphatase 97 IU/L (40-130); Anion Gap 8.5 (5-19); Aspartate Amino Transferase 46 U/L (0-40); Blood Urea Nitrogen 16 mg/dL (8-23); Calcium 8.2 mg/dL (8.5-10.5); Carbon Dioxide 34 mmol/L (22-29); Chloride 99 mmol/L (98-107); Chol HDL Ratio 2.86 mg/dL (1.0-5.00); Cholesterol 146 mg/dL (0-200); Ferritin 628 ng/mL (30-400); Globulin 2.3 g/dL (1.3-4.6); Glucose 98 mg/dL (65-115); HDL Cholesterol 51 mg/dL (60-100); LDL Cholesterol Calculated 84 mg/dL (50-129); Magnesium 1.8 mg/dL (1.7-2.3); Osmolality Calculated 285 mOsm/kg (285-295); Phosphorus 2.9 mg/dL (2.5-4.5); Potassium 4.5 mmol/L (3.5-5.1); Sodium 137 mmol/L (136-145); Total Bilirubin 0.3 mg/dL (0.15-1.2); Total Protein 5.7 g/dL (6.6-8.7); Triglycerides 55 mg/dL (0-150); VLDL Cholestrol Calculation 11 mg/dL (0-30)
--- NOTE | 2020-11-07 06:00 | USCV_ITS ---
Geo Yip Age: 75 Gender: M : 1945 Exam Date: 11/07/2020 05:14 Ordering Phys: Carrington Mandel MD Technologist: Lucy Duncan Exam Location: [facility] [place] Indication: CHST PAIN BP: 103 / 63 HR: 51 Rhythm: Sinus Technical Quality: Adequate MEASUREMENTS (Male / Female) Normal Values 2D ECHO LV Diastolic Diameter PLAX 3.9 cm 4.2 - 5.9 / 3.9 - 5.3 cm LV Systolic Diameter PLAX 2.3 cm LV Chamber Size 3.3 cm IVS Diastolic Thickness 1.1 cm 0.6 - 1.0 / 0.6 - 0.9 cm IVS Systolic Thickness 1.6 cm LVPW Diastolic Thickness 0.9 cm 0.6 - 1.0 / 0.6 - 0.9 cm LVPW Systolic Thickness 1.4 cm RV Chamber Size 3.3 cm LVOT Diameter 2.0 cm LV Ejection Fraction 2D Teich 71.1 % LV Ejection Fraction MOD 2C 43.7 % LV Ejection Fraction 2C AL 43.2 % LA Diameter 3.7 cm LA Width 4.2 cm LA Height 5.2 cm RA Width 3.2 cm RA Height 5.8 cm Aorta at Sinotubular Diameter 2.6 cm M-MODE LV Diastolic Diameter MM 4.6 cm 4.2 - 5.9 / 3.9 - 5.3 cm LV Systolic Diameter MM 3.2 cm LV Ejection Fraction MM Teich 60.0 % IVS Diastolic Thickness MM 1.4 cm 0.6 - 1.0 / 0.6 - 0.9 cm IVS Systolic Thickness MM 1.7 cm LVPW Diastolic Thickness MM 1.3 cm 0.6 - 1.0 / 0.6 - 0.9 cm LVPW Systolic Thickness MM 1.3 cm RV Diastolic Diameter MM 1.7 cm Aortic Annulus Diameter 3.8 cm LA Ao Ratio MM 0.9 MV E Point Septal Separation 0.5 cm DOPPLER AV Peak Velocity 96.0 cm/s LVOT Peak Velocity 68.0 cm/s AV Area Cont Eq vti 2.2 cm squared AV Area Cont Eq pk 2.3 cm squared MV Area PHT 5.0 cm squared MV E' Velocity 52.5 cm/s Mitral E to MV E' Ratio 5.9 Mitral E to LV E' Lateral Ratio 7.3 Mitral E to LV E' Septal Ratio 5.0 TR Peak Velocity 240.8 cm/s TR Peak Gradient 23.2 mmHg TR Mean Velocity 175.8 cm/s TR Mean Gradient 13.8 mmHg TR Velocity Time Integral 70.3 cm TV Peak E Velocity 64.0 cm/s Right Atrial Pressure 15.0 mmHg Pulmonary Artery Systolic Pressu 38.2 mmHg PV Peak Velocity 46.0 cm/s RV Acceleration Time 0.1 s RV Ejection Time 0.3 s RV AcT/ET 0.4 FINDINGS Left Ventricle Normal left ventricular size. LV systolic function is normal with EF of 40-45%. Mild global hypokinesis. Right Ventricle The right ventricle is normal in size. Mildly reduced function Right Atrium The right atrium is normal in size. Left Atrium The left atrium is normal in size. Mitral Valve Structurally normal mitral valve without significant stenosis or prolapse. There is trace mitral regurgitation. Aortic Valve Structurally normal aortic valve without significant sclerosis or stenosis. There is no aortic regurgitation. Tricuspid Valve Structurally normal tricuspid valve without significant stenosis or regurgitation. Insufficient TR jet to calculate RVSP Pulmonic Valve Not well visualized Pericardium Normal pericardium without effusion. Aorta Normal ascending aorta dimension. CONCLUSIONS Technically difficult study because of poor ultrasonic windows LV systolic function is normal with EF of 40-45%. Mild global hypokinesis. Trace mitral regurgitation No comparison studies are available Nasim Cordero MD (Electronically Signed) Final Date: 09 November 2020 19:42 S
[2020-11-07] MEDS: diphenhydrAMINE 50 mg Capsule PO (06:03)
[2020-11-07] MEDS: famotidine 20 mg/2 mL INJ IVP ×2 (06:04→16:34)
[2020-11-07] MEDS: sodium chloride 0.9% 1,000 ML 50 ML IV (06:05)
--- NOTE | 2020-11-07 07:10 | PC.NURSE ---
Received report from KATARINA Lizarraga at bedside. Checked right radial access site together, no hematoma present, TR band in place with 15ml air. Patient has been educated regarding activity restriction of right wrist. Blood pressure set Q15min. Ptt order put in for NOW, pending results per Dr. Cordero and then will start to remove air from TR band. Nurse will continue to monitor.
--- NOTE | 2020-11-07 07:15 | PC.NURSE ---
Report received from KATARINA Luis. Patient left floor for cath procedure at 0700am. VS stable upon departure.
--- NOTE | 2020-11-07 07:23 | W.PM.OPSUD ---
Surgery/Procedure H&P Update DATE OF PROCEDURE: November 07, 2020 DATE H&P PERFORMED: 11/06/20 H&P UPDATE INFORMATION: I have reviewed H&P completed within last 30 days, I have examined patient prior to procedure and No changes to prior documentation PREOP DIAGNOSIS: NSTEMI PRIMARY INDICATION FOR PROCEDURE: NSTEMI PLANNED PROCEDURE: Left heart cath with possible percutaneous coronary intervention PATIENT REASSESSED PRIOR TO SEDATION, WITH NO CHANGE NOTED: Yes PHYSICAL EXAM: alert, oriented x 3 and regular rate & rhythm OTHER PERTINENT EXAM FINDINGS: Has wheezing AIRWAY EVAL/ANESTHESIA PLAN: normal airway, ASA IV, Monitored Anesthesia, Local Anesthesia, Risks, benefits & alternatives of sedation and/or procedure discussed and Patient agrees to continue as planned
--- NOTE | 2020-11-07 08:57 | PM.PN ---
Subjective Subjective: Interval history: No acute events overnight. Patient has remained hemodynamically stable. Patient underwent cardiac catheterization today and underwent PCI to left circumflex and OM1. He tolerated the procedure well. Vitals/I&O/Wt Last Vital Signs Temp 98.8 F 11/07/20 04:00 Pulse 80 11/07/20 06:00 Resp 25 H 11/07/20 04:00 BP 103/63 11/07/20 04:00 Pulse Ox 98 11/07/20 04:00 11/06/20 11/07/20 11/07/20 22:59 06:59 14:59 Intake Total 11.80 / 11.80 266.30 / 278.10 Output Total 500 / 500 0 / 500 Balance -488.20 / -488.20 266.30 / -221.90 Weight last 48 hrs Weight 55.293 kg Weight 58.06 kg Physical Exam Narrative: EXAM NARRATIVE: General: No acute distress, AO x3, cachectic, barrel chest, on 3 L nasal cannula, thin built HEENT: PERRLA, pupils bilaterally equal and reactive Chest: Bilateral bronchial breath sounds, occasional rhonchi over the lung hercules, equal air entry all over the lung hercules CVS: S1-S2 irregularly irregular, no murmurs, tachycardia, no gallops, no rubs Abdomen: Soft, nontender, no organomegaly, bowel sounds present Neuro: No focal deficits, no facial deformity, AO x3, power 5/5 in all limbs Data : 11/07/20 04:28 11/07/20 04:28 Micro: Microbiology 11/06/20 15:58 Blood Culture - Preliminary Blood SPECIMEN COLLECTED 11/06/20 16:00 Blood Culture - Preliminary Blood SPECIMEN COLLECTED A&P Assessment and plan (1) NSTEMI (non-ST elevated myocardial infarction): Status: Acute (2) CAD (coronary artery disease): Status: Acute (3) Chest pain: Status: Acute (4) Afib: Status: Acute (5) BPH (benign prostatic hyperplasia): Status: Acute (6) COPD (chronic obstructive pulmonary disease): Status: Acute (7) HLD (hyperlipidemia): Status: Acute (8) Multi-vessel coronary artery stenosis: Status: Acute Additional A&P Information 75-year-old gentleman past medical history of CAD, post PTCA, advanced COPD presented to the ER today with ongoing chest pain and found to have atrial fibrillation with RBBB with positive delta on troponins in 2 hours. Non-ST elevation WA: Multivessel CAD. Post PCI to left circumflex and OM1 with possible planned staged procedure to LAD versus medical management depending on symptoms. Appreciate cardiology recommendations. Continue with aspirin, Plavix, statin and ezetimibe. Continue with metoprolol 50 mg twice daily. Continue with Lovenox 1 mg KG body weight every 12 hourly. IV fluids with normal saline 50 cc/h. Cardiogram results awaited. Morphine as needed. Oxygen supplementation keeping saturation over 90%. Atrial fibrillation:Continue with metoprolol 50 mg twice daily Continue full dose Lovenox for now. Will discuss with patient regarding long-term anticoagulation as an outpatient. COPD: No advance exacerbation for now. Continue with DuoNebs, budesonide. Oxygen supplementation. Patient does not have any leukocytosis, is afebrile, denies any exposure to COVID-19, denies any change in cough or expectoration or difficulty in breathing at present. Chances of infectious source is low for now. Program negative, CT chest results appreciated, urine Legionella, and bacterial antigen negative, flu swab negative. History of seizure disorder. History of hyperlipidemia. History of BPH. CODE STATUS: Patient states he does not want to be on life support and would not want any chest compressions as well. Patient's left is bedside as well. CODE STATUS allow natural . Cardiac diet, Full dose Lovenox will help with DVT prophylaxis. Attestations Medical Necessity Statement*: Patient requires further hospitalization for management of non-ST elevation WA, multivessel disease, post PCI to left circumflex and OM1 with possible staged procedure to LAD Time Spent in Patient Care: Greater than 35 minutes (>than 50% of time spent in counselling and/or direct pt care on unit). Coding Level of Care Code Acute Utilization Review Coordinator for [facility] Fwd Diagnoses NSTEMI (non-ST elevated myocardial infarction) I21.4 CAD (coronary artery disease) I25.10 Chest pain R07.9 Afib I48.91 BPH (benign prostatic hyperplasia) N40.0 COPD (chronic obstructive pulmonary disease) J44.9 HLD (hyperlipidemia) E78.5 Multi-vessel coronary artery stenosis I25.10
--- NOTE | 2020-11-07 09:58 | PC.CHAP ---
Pastoral Care Encounter/Spiritual Assessment Type of Contact [] Declined business operations consultant visit [] Patient/Family/Request visit [] Outpatient visit [] Follow-up visit [] Physician referral [] Code/Alert [x] Routine visit [] Staff referral [] Actively dying [] Patient sleeping [] Family support [] [x] Out of room [] Palliative care [] [] Receiving care in room [] Pre-surgical visit [] Trauma [] Long length of stay [] ICU visit [x] Other: testing Relational/Emotional Strength [] Patient feels connected with others/family/visitors/staff [] Distress [] Loneliness/isolation [] Abandonment Spirituality of Patient [] Person of Clemencia [] Attends Spiritism of their Clemencai [] Believes in Prayer [] Reads Bible or Hinduism materials [] There are Spiritual issues to be addressed Mushroom Picker Interventions [x] Prayer [] Active listening [] Non-anxious presence [] Spiritual/emotional support [] Crisis/trauma care [] Spiritual counseling [] Bereavement support [] Provided bereavement packet [] Provided Bible/devotional materials [] Provided toy/stuffed animal, coloring book to patient or family member [] Provided Communion [] Anointing/[place] [] Salvation [x] Completed spiritual assessment [] Other: Impact on Illness or Injury [] Angry [] Fearful [] Anxious [] Often cries [] Exhaustion [] Unable to work [] Unable to attend protestant [] Unable to walk/stand [] Unable to read [] Unable to drive [] Unable to eat/drink [] Unable to sleep [] Unable to be with family [] Patient intubated [] Other: Summary Time spent with patient
[2020-11-07] MEDS: clopidogrel 300 mg Tablet 600 MG PO (10:13)
[2020-11-07] MEDS: sodium chloride 0.9% 1,000 ML 100 ML IV (10:22)
[2020-11-07] MEDS: aspirin 81 mg EC Tablet PO (10:59)
[2020-11-07 11:15] LABS: Partial Thromboplastin Time > 250.0 SECONDS (23.9-36.7)
--- NOTE | 2020-11-07 16:10 | PC.NURSE ---
TR band removed with no significant events. No hematoma present, no oozing present. Dressing placed. Patient reinforced education regarding activity restriction, and signs and symptoms to be aware of. Patient understand and has no questions or concerns.
[2020-11-07] MEDS: metoprolol tartrate 50 mg Tablet PO (17:23)
[2020-11-07] MEDS: PHENobarbital 32.4 mg Tablet 97.2 MG PO (17:23)
--- NOTE | 2020-11-07 18:40 | PM.PN ---
Subjective Subjective: Interval history: Patient undwent coronary angiogram today. Has complex multivessel coronary artery disease. RCA is GREASE RACK WORKER and aneurysmal. OM 1 and mid to distal LCx had severe stenosis. Underwent successful revascularization with RADHA X 3. LAD is aneurysmal. Has moderate to severe stenosis in prox to mid segment. Diagonal artery has severe ostial disease. Arteries are heavily calcified and aneurysmal. Post PCI patient is doing well. No complaints of chest pain. Vitals/I&O/Wt Last Vital Signs Temp 98.0 F 11/07/20 15:46 Pulse 70 11/07/20 16:15 Resp 23 H 11/07/20 16:15 BP 125/77 11/07/20 16:15 Pulse Ox 97 11/07/20 16:15 11/07/20 11/07/20 11/07/20 06:59 14:59 22:59 Intake Total 266.30 / 278.10 360 / 360 Output Total 0 / 500 100 / 100 Balance 266.30 / -221.90 -100 / -100 360 / 260 Weight last 48 hrs Weight 121 lb 14.4 oz Weight 128 lb Physical Exam Narrative: EXAM NARRATIVE: GENERAL: Patient is alert, awake and oriented x3.Cachectic, barrel chest. [] NECK: No jugular vein distension. [] HEENT: No cyanosis. No icterus. No pallor. [] HEART: Irregularly irregular, tachycardia. No murmur, rub or gallop. [] LUNGS: Clear to auscultate bilaterally. [] ABDOMEN: Soft, nontender and nondistended. Positive bowel sounds. No guarding, rebound or tenderness. [] CENTRAL NERVOUS SYSTEM: Grossly nonfocal. [] EXTREMITIES: Lower extremities with 1+ edema bilaterally. Pulses palpable in the lower extremities, both dorsalis pedis and posterior tibial. [] Data : 11/07/20 04:28 11/07/20 04:28 Micro: Microbiology 11/06/20 15:58 Blood Culture - Preliminary Blood NEGATIVE TO DATE 11/06/20 16:00 Blood Culture - Preliminary Blood NEGATIVE TO DATE 11/06/20 18:50 MRSA Culture - Final Nose 11/06/20 22:00 Gram Stain - Final Sputum - Expectorated Sputum A&P Assessment and plan (1) NSTEMI (non-ST elevated myocardial infarction): Status: Acute (2) Afib: Status: Acute (3) HLD (hyperlipidemia): Status: Acute (4) CAD (coronary artery disease): Status: Acute (5) COPD (chronic obstructive pulmonary disease): Status: Acute Patient's presentation is consistent with NSTEMI. Angiogram showed has complex multivessel coronary artery disease. RCA is GREASE RACK WORKER and aneurysmal. OM 1 and mid to distal LCx had severe stenosis. Underwent successful revascularization with RADHA X 3. LAD is aneurysmal. Has moderate to severe stenosis in prox to mid segment. Diagonal artery has severe ostial disease. Arteries are heavily calcified and aneurysmal. Patient is not very functional. LAD disease is in an aneurysmal segment. Discussed with patient's that we will need to see how he does with PCI of LCx, if asymptomatic, medical therapy may be a reasonable option for his LAD/Diagonal disease as he would be at a high risk of complications for the procedure. He also wants to be DNR. Will re-evaluate tomorrow the need of further intervention based on his symptoms. ECHO performed and is pending. Continue aspirin and plavix for atleast 1 year IV fluids for 12 hours Thank you for involving us with the care of this patient. We will continue to follow. Please call with questions. Attestations Medical Necessity Statement*: Care expected to cross 2 midnights. Coding Level of Care Code Acute Assistant Professor Of History for [facility] Diagnoses NSTEMI (non-ST elevated myocardial infarction) I21.4 Afib I48.91 HLD (hyperlipidemia) E78.5 CAD (coronary artery disease) I25.10 COPD (chronic obstructive pulmonary disease) J44.9
--- NOTE | 2020-11-07 18:55 | PC.NURSE ---
Received report from BRANDEE Benitez. Patient is s/p C with right radial access. Dressing in place to right wrist which remains c,d,i. No s/s of bleeding or hematoma formation observed. Patient denies pain to site. Patient is restless and attempting to remove telemetry. Discussed the importance of leaving telemetry in place. Spouse at bedside both verbalized complete understanding. Patient refusing to have fluids continue. Encouraged patient to leave fluids in place until current bag was complete. Patient was agreeable to this. Patient denies pain at this time NO distress observed.
[2020-11-08] VITALS (9 sets, daily range): BP systolic 96–120; BP diastolic 54–74; PULSE 57–79; RESP 16–20; TEMP 36.6–36.7; O2SAT 92–98
--- NOTE | 2020-11-08 00:28 | PC.NURSE ---
Patient up wandering in the [place] leaving a blood trail behind him. Patient removed his NC, unplugged his telemetry and removed the hub from the IV which was the source of bleeding. Dressing to right radial access remains c,d,i. Returned patient to room and cleaned and replaced the hub to patient's IV. Reinforced IV site with coban. Patient refusing to have telemetry and IV fluids replaced stating, I was told they were going to take all this stuff off in the morning anyway. I was able to encourage patient to replace his NC as patient does require O2 at home.
--- NOTE | 2020-11-08 04:09 | PC.NURSE ---
Patient refusing to have telemetry monitoring replaced at this time. Patient stated, I am going home today anyway. I don't need to be on this machine. Spouse remained at bedside with doctor approval to aide with his care and attempted to talk him into replaced telemetry and he proceeded to argue with her and continued to refuse to replace telemetry.
[2020-11-08 05:21] LABS: Basophils % 0.4 %; Eosinophils # 0.1 10^3/uL (0.0-0.8); Hematocrit 35.6 % (42.0-52.0); Hemoglobin 11.5 g/dL (11.7-16.6); Lymphocytes # 0.5 10^3/uL (0.8-4.8); Lymphocytes % 9.1 %; Mean Corpuscular HGB Conc 32.3 g/dL (30.0-36.0); Mean Corpuscular Hemoglobin 31.5 pg (28.0-34.0); Mean Corpuscular Volume 97.5 fL (80-94); Mean Platelet Volume 10.2 fL (7.4-10.4); Monocytes # 0.5 10^3/uL (0.2-0.9); Neutrophils # 4.09 10^3/uL (1.8-7.7); Neutrophils % 78.9 %; Nucleated Red Blood Cells % 0 %; Platelet Count 148 10^3/cmm (130-400); Red Blood Count 3.65 10^6/uL (4.1-5.3); Red Cell Distribution Width 13.2 % (12.1-15.1); White Blood Count 5.2 10^3/uL (4.0-10.0)
--- NOTE | 2020-11-08 05:34 | PC.NURSE ---
Patient continues to refuse telemetry placement. Refusing to take Pepcid IV dose this morning. Patient keeps stating, I am going home today.
[2020-11-08 05:43] LABS: Alanine Aminotransferase 15 U/L (0-41); Albumin Level 3.1 g/dL (3.5-5.2); Alkaline Phosphatase 97 IU/L (40-130); Anion Gap 11.3 (5-19); Aspartate Amino Transferase 35 U/L (0-40); Blood Urea Nitrogen 12 mg/dL (8-23); Carbon Dioxide 29 mmol/L (22-29); Chloride 98 mmol/L (98-107); Globulin 2.2 g/dL (1.3-4.6); Glucose 95 mg/dL (65-115); Osmolality Calculated 278 mOsm/kg (285-295); Potassium 4.3 mmol/L (3.5-5.1); Sodium 134 mmol/L (136-145); Total Bilirubin 0.3 mg/dL (0.15-1.2); Total Protein 5.3 g/dL (6.6-8.7)
--- NOTE | 2020-11-08 07:05 | PC.NURSE ---
Bedside report with 2 nurses performed. Site verification, asymptomatic. Patient refusing telemetry at this time. Nurse to continue to monitor.
[2020-11-08] MEDS: clopidogrel 75 mg Tablet PO (08:06)
[2020-11-08] MEDS: tamsulosin 0.4 mg Capsule 0.8 MG PO (08:07)
[2020-11-08] MEDS: ezetimibe 10 mg Tablet PO (08:07)
[2020-11-08] MEDS: PHENobarbital 32.4 mg Tablet 97.2 MG PO (08:08)
[2020-11-08] MEDS: atorvastatin 40 mg Tablet PO (08:08)
[2020-11-08] MEDS: aspirin 81 mg EC Tablet PO (08:08)
--- NOTE | 2020-11-08 08:11 | PC.NURSE ---
Morning vitals reported to Dr. Mandel. Telephone order to hold morning metoprolol due to bradycardia. RBTO.
--- NOTE | 2020-11-08 10:20 | P.DS_ITS ---
Discharge Providers Date of Admission: 11/06/20 16:28 Date of Discharge: November 08, 2020 Attending Provider at Admission: Carrington Mandel MD Attending Provider at Discharge: Carrington Mandel MD Consults: Cardiology: Dr. Cordero Primary Care Provider: Carmelita Piper MD Diagnoses at Discharge Discharge Diagnosis (1) NSTEMI (non-ST elevated myocardial infarction): Status: Acute (2) Afib: Status: Acute (3) HLD (hyperlipidemia): Status: Acute (4) CAD (coronary artery disease): Status: Acute (5) COPD (chronic obstructive pulmonary disease): Status: Acute (6) Multi-vessel coronary artery stenosis: Status: Acute (7) Unstable angina pectoris: Status: Acute Reason for Visit Reason for Visit: CHEST PAIN ONSET 929 Hospital Course Hospital Course Geo Yip is a 75 year old male with past medical history of CAD, post PTCA, advanced COPD, on chronic oxygen with 3 L, BPH, seizure disorder presents to the ER today with ongoing chest pain since today morning. Patient states he has been not been feeling well for last 3 to 4 days with occasional chest heaviness and chest pain on exertion. Chest symptoms are also short-lived with difficulty in breathing on and off. He states his cough, difficulty breathing, expectoration is at baseline. Usually he gets out of. On exertion but is able to carry his ADLs. He is currently on 3 L oxygen supplementation and is doing well on the same currently. He states today morning since around 9:30 AM he has been having more of central chest pain going bilaterally to his shoulders more so towards the left with occasional referral to the jaw as well associated with mild nausea on and off but no vomiting or dizziness or palpitations. Patient is not aware of history of atrial fibrillation. He denies any loss of consciousness. 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 He states there has not been change in his medications recently. He denies any fever, subjective fevers, hemoptysis, known exposure to COVID-19, denies receiving COVID-19 vaccine as well. Blood work in the ER showed a white count 7.9, hemoglobin of 13.7, sodium of 136, chloride of 96, potassium of 5.2, carbon dioxide 32, creatinine of 0.7, AST/ALT of 19/14, baseline troponin of 63 with a delta of 30 in 2 hours, EKG showing atrial fibrillation with right bundle branch block with rate of around 96 bpm. He was admitted to the hospital for management of non-ST elevation MS. He was started on full dose anticoagulation and cardiology was consulted. He underwent cardiac catheterization on November 07 which showed multivessel disease. He has complex multivessel coronary artery disease. 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 OM 1 and mid to distal LCx had severe stenosis. Underwent successful revascularization with RADHA X 3. LAD is aneurysmal. Has moderate to severe stenosis in prox to mid segment. Diagonal artery has severe ostial disease. Arteries are heavily calcified and aneurysmal. Postprocedure patient did well. He did not have any further chest pain.His home medication were further adjusted for medical management of LAD lesions. He was advised to stay in hospital for one more day for futher titration of meds and monitoring but he was eager to go home and is being discharged in hemodynamically stable condition with advise to follow up with his PCP and heart services in next 1 week for further titration ofd meds. Plan was discussed in detail with patient and he was agreeable to same. Physical Exam Narrative: EXAM NARRATIVE: General: No acute distress, AO x3, cachectic, barrel chest, on 3 L nasal cannula, thin built HEENT: PERRLA, pupils bilaterally equal and reactive Chest: Bilateral bronchial breath sounds, occasional rhonchi over the lung hercules, equal air entry all over the lung hercules CVS: S1-S2 irregularly irregular, no murmurs, tachycardia, no gallops, no rubs Abdomen: Soft, nontender, no organomegaly, bowel sounds present Neuro: No focal deficits, no facial deformity, AO x3, power 5/5 in all limbs Discharge Data Data Completed and Pending: Completed Studies During Hospitalization Category Date Time Status CT chest wo con 7 1250 Urgent Cat Scan 11/06/20 14:45 Completed Pending at discharge Category Date Time Status DISTRICT OPERATIONS MANAGER request for service Routin e Exams 11/07/20 Taken DISTRICT OPERATIONS MANAGER request for service Routin e Exams 11/09/20 13:30 Unverified Blood Culture Sta t Lab 11/06/20 15:58 Results Sputum Culture an d Gram Stain Stat Lab 11/06/20 22:00 Results CV echo complete* [id number] Routine Ultrasound 11/07/20 06:00 Taken Labs from last 24 hours 11/08/20 11/08/20 11/07/20 04:34 04:34 10:12 WBC 5.2 RBC 3.65 L Hgb 11.5 L Hct 35.6 L MCV 97.5 H MCH 31.5 MCHC 32.3 RDW 13.2 Plt Count 148 MPV 10.2 Neut % (Auto) 78.9 Lymph % (Auto) 9.1 [place] % (Auto) 10.0 Eos % (Auto) 1.0 Baso % (Auto) 0.4 Neut # (Auto) 4.09 Lymph # (Auto) 0.[address] [place] # (Auto) 0.5 Eos # (Auto) 0.1 Baso # (Auto) 0.0 Nucleated RBC % (a uto) 0 Nucleated RBCs # 0.0 APTT > 250.0 H* Sodium 134 L Potassium 4.3 Chloride 98 Carbon Dioxide 29 Anion Gap 11.3 BUN 12 Creatinine 0.5 L GFR Calculation Not Reportable Glucose 95 Calculated Osmolal ity 278 L Calcium 8.0 L Total Bilirubin 0.3 AST 35 ALT 15 Alkaline Phosphata se 97 Total Protein 5.3 L Albumin 3.1 L Globulin 2.2 Addt'l Data from Hospital Stay: Laboratory Results WBC 5.2 10^3/uL (4.0- 10.0) 11/08/20 04:34 RBC 3.65 10^6/uL (4.1 -5.3) L 11/08/20 04:34 Hgb 11.5 g/dL (11.7-1 6.6) L 11/08/20 04:34 Hct 35.6 % (42.0-52.0 ) L 11/08/20 04:34 MCV 97.5 fL (80-94) H 11/08/20 04:34 MCH 31.5 pg (28.0-34. 0) 11/08/20 04:34 MCHC 32.3 g/dL (30.0-3 6.0) 11/08/20 04:34 RDW 13.2 % (12.1-15.1 ) 11/08/20 04:34 Plt Count 148 10^3/cmm (130 -400) 11/08/20 04:34 MPV 10.2 fL (7.4-10.4 ) 11/08/20 04:34 Neut % (Auto) 78.9 % 11/08/20 04:34 Lymph % (Auto) 9.1 % 11/08/20 04:34 [place] % (Auto) 10.0 % 11/08/20 04:34 Eos % (Auto) 1.0 % 11/08/20 04:34 Baso % (Auto) 0.4 % 11/08/20 04:34 Neut # (Auto) 4.09 10^3/uL (1.8 -7.7) 11/08/20 04:34 Lymph # (Auto) 0.5 10^3/uL (0.8- 4.8) L 11/08/20 04:34 [place] # (Auto) 0.5 10^3/uL (0.2- 0.9) 11/08/20 04:34 Eos # (Auto) 0.1 10^3/uL (0.0- 0.8) 11/08/20 04:34 Baso # (Auto) 0.0 10^3/uL (0.0- 0.1) 11/08/20 04:34 Nucleated RBC % (a uto) 0 % 11/08/20 04:34 Nucleated RBCs # 0.0 /100WBC 11/08/20 04:34 PT 13.40 SECONDS (12 .1-14.9) 11/07/20 04:28 INR 0.99 (0.8-1.2) 11/07/20 04:28 APTT > 250.0 SECONDS ( 23.9-36.7) H* 11/07/20 10:12 D-Dimer 1.28 ug/mIFEU (0- 0.59) H 11/06/20 15:58 Sodium 134 mmol/L (136-1 45) L 11/08/20 04:34 Potassium 4.3 mmol/L (3.5-5 .1) 11/08/20 04:34 Chloride 98 mmol/L (98-107 ) 11/08/20 04:34 Carbon Dioxide 29 mmol/L (22-29) 11/08/20 04:34 Anion Gap 11.3 (5-19) 11/08/20 04:34 BUN 12 mg/dL (8-23) 11/08/20 04:34 Creatinine 0.5 mg/dL (0.7-1. 2) L 11/08/20 04:34 GFR Calculation Not Reportable 11/08/20 04:34 Glucose 95 mg/dL (65-115) 11/08/20 04:34 Estimat Average Gl ucose 88 11/07/20 04:28 Hemoglobin A1c 4.7 % (4.0-6.0) 11/07/20 04:28 Calculated Osmolal ity 278 mOsm/kg (285- 295) L 11/08/20 04:34 Calcium 8.0 mg/dL (8.5-10 .5) L 11/08/20 04:34 Phosphorus 2.9 mg/dL (2.5-4. 5) 11/07/20 04:28 Magnesium 1.8 mg/dL (1.7-2. 3) 11/07/20 04:28 Iron 58 ug/dL (59-158) L 11/06/20 11:24 TIBC 197 mcg/dl 11/06/20 11:24 % Saturation 29.4 % (20-50) 11/06/20 11:24 Unsat Iron Binding 139 ug/dL (112-34 7) 11/06/20 11:24 Ferritin 628 ng/mL (30-400 ) H 11/07/20 04:28 Total Bilirubin 0.3 mg/dL (0.15-1 .2) 11/08/20 04:34 AST 35 U/L (0-40) 11/08/20 04:34 ALT 15 U/L (0-41) 11/08/20 04:34 Alkaline Phosphata se 97 IU/L (40-130) 11/08/20 04:34 Troponin T Baselin e 63 ng/L (0-15) H 11/06/20 11:24 Troponin T 120 Min ana 93.10 ng/L (0-15) H 11/06/20 13:17 Delta Troponin T 30.10 ABS# (0-10) H* 11/06/20 13:17 Troponin T Hi Sens 6Hr 180.7 ng/L (0-15) H 11/06/20 17:30 Troponin T Hi Sens 6Hr Delta 117.7 ng/L (0-12) H* 11/06/20 17:30 NT-Pro-B Natriuret Pep 1391 pg/mL (0-450 ) H 11/06/20 11:24 Total Protein 5.3 g/dL (6.6-8.7 ) L 11/08/20 04:34 Albumin 3.1 g/dL (3.5-5.2 ) L 11/08/20 04:34 Globulin 2.2 g/dL (1.3-4.6 ) 11/08/20 04:34 Triglycerides 55 mg/dL (0-150) 11/07/20 04:28 Cholesterol 146 mg/dL (0-200) 11/07/20 04:28 LDL Cholesterol, C alc 84 mg/dL (50-129) 11/07/20 04:28 Total VLDL Cholest gurpreet 11 mg/dL (0-30) 11/07/20 04:28 HDL Cholesterol 51 mg/dL (60-100) L 11/07/20 04:28 Cholesterol/HDL Ra meghann 2.86 mg/dL (1.0-5 .00) 11/07/20 04:28 Procalcitonin 0.03 ng/mL (0-0.5 ) 11/06/20 11:24 TSH 2.86 uIU/mL (0.27 -4.20) 11/06/20 11:24 Urine Color Yellow (Yellow) 11/07/20 02:30 Urine Appearance Clear (CLEAR) 11/07/20 02:30 Urine pH 5 (5-7) 11/07/20 02:30 Ur Specific Gravit y 1.020 (1.005-1.0 30) 11/07/20 02:30 Urine Protein Neg (Negative) 11/07/20 02:30 Urine Glucose (UA) Norm (Normal) 11/07/20 02:30 Urine Ketones Negative (Negati ve) 11/07/20 02:30 Urine Blood Neg (Negative) 11/07/20 02:30 Urine Nitrate Negative (Negati ve) 11/07/20 02:30 Urine Bilirubin Neg (Negative) 11/07/20 02:30 Urine Urobilinogen 4 mg/dL (Negative ) H 11/07/20 02:30 Ur Leukocyte Kira ase Negative (Negati ve) 11/07/20 02:30 Urine RBC 0-4 /hpf (0-2) H 11/07/20 02:30 Urine WBC 0-4 /hpf (0-5) H 11/07/20 02:30 Ur Squamous Epith Cells 0-4 /hpf (0-5) H 11/07/20 02:30 Amorphous Sediment Not Reportable 11/07/20 02:30 Urine Bacteria Trace /hpf (NONE) 11/07/20 02:30 Influenza Type A A g Negative (Negati ve) 11/06/20 15:51 Influenza Type B A g Negative (Negati ve) 11/06/20 15:[address] 11/06/20 14:45 IMPRESSION: 1. Fibrotic appearing mass like opacity in the right upper lobe posteriorly near the lung apex abutting the pleura. This measures approximately approximately 1.6 x 3.7 x 3.3 cm AP by transverse by craniocaudal. This is not amenable to CT-guided biopsy. This can be further evaluated PET/CT. 2. Spiculated fibrotic appearing opacity in the left upper lobe near the lung apex measuring 2.1 cm may represent fibrosis but also nonspecific. 3. Numerous additional new subcentimeter pulmonary nodules in both upper lobes anteriorly some with suspicious imaging characteristics with spiculation. Largest lesions measure 9 mm in the right upper lobe. These can also be further evaluated with PET/CT. Malignancy is not excluded. 4. Additional smaller stable pulmonary nodules described above. 5. Advanced chronic emphysematous changes. 6. No acute pulmonary infiltrates. 7. No mediastinal or hilar lymphadenopathy. Vitals: Last Vital Signs Temp 98.1 F 11/08/20 07:31 Pulse 57 L 11/08/20 07:31 Resp 16 11/08/20 07:31 BP 97/59 11/08/20 07:31 Pulse Ox 93 11/08/20 07:31 Discharge Plan Discharge Patient Disposition: Home Condition: Stable Prescriptions: New aspirin 81 mg Tablet,Delayed Release (Dr/Ec) 81 mg PO DAILY Qty: 30 RF: 0 isosorbide mononitrate 30 mg tablet extended release 24 hr 30 mg PO DAILY Qty: 30 RF: 0 Continued phenobarbital 97.2 mg tablet 97.2 mg PO BID RF: 0 Wixela Inhub 250-50 mcg/dose blister with device 1 inh INHALATION BID RF: 0 clopidogrel 75 mg tablet 75 mg PO DAILY RF: 0 simvastatin 80 mg tablet 80 mg PO DAILY RF: 0 hydrocodone-acetaminophen 10-325 mg tablet 1 tab PO Q6H PRN (Reason: Pain) RF: 0 tamsulosin 0.4 mg capsule 0.8 mg PO DAILY RF: 0 nitroglycerin 0.4 mg tablet, sublingual 0.4 mg sublingual Q5MIN PRN (Reason: Chest Pain) RF: 0 epinephrine 0.3 mg/0.3 mL auto-injector 0.3 mg SUBCUT ONCE PRN (Reason: Anaphylaxis) RF: 0 ezetimibe 10 mg tablet 10 mg PO DAILY RF: 0 Combivent Respimat 20-100 mcg/actuation mist 2 puff INHALATION QID RF: 0 Breztri Aerosphere 160-9-4.8 mcg/actuation HFA aerosol inhaler 2 inh INHALATION BID RF: 0 Changed metoprolol tartrate 25 mg tablet 37.5 mg PO BID Qty: 80 RF: 0 Discontinued felodipine 2.5 mg tablet extended release 24 hr 2.5 mg PO DAILY RF: 0 Discharge Orders: Discharge Order (Routine); Ordered 11/08/20 Ordered By: Carrington Mandel Referrals: Carmelita Piper MD [Primary Care Provider] - 7-10 days LandonrKurt MD [Physician] - 2 weeks (Severe COPD, possible lung malignancy) Nasim Cordero M.D [Physician] - 1 month Chiquita Beaulieu FNP [Nurse Practitioner] - 7-10 days Discharge Diet: Cardiac Discharge Activity: Resume usual activity Patient Instructions: Aspirin (By mouth), Isosorbide Mononitrate (By mouth), Myocardial Infarction (DC), Opioid Safety Activity Restrictions/Additional Instructions: Please follow-up with your primary care provider in next 1 week. Please follow-up with cardiology heart services in next 1 week. Your dose of metoprolol has been changed to 37.5 mg twice daily, your new medication called Imdur 30 mg daily. Stop feldopine. If you have any chest pain, increased difficulty in breathing more than your baseline please come back to the ER. Discharge Attestations Time Spent in Discharge Care*: greater than 30 min Specific Discharge Activities: educating patient, educating and/or supporting family/caregiver, discussing with pcp/other providers, discussing with supervisor case loading/social workers/dc planners, documenting/other paperwork and evaluating patient/reviewing data Status at Discharge: Cognitive status at discharge: cognitively intact , Behavioral status at discharge: cooperative , Functional status at discharge: independent ambulation Overall status at discharge: patient is back to baseline Quality Metrics Clinical Quality Measures During this hospital stay, did patient experience: None Coding Level of Care Code Acute [facility] [place] note Diagnoses NSTEMI (non-ST elevated myocardial infarction) I21.4 Afib I48.91 HLD (hyperlipidemia) E78.5 CAD (coronary artery disease) I25.10 COPD (chronic obstructive pulmonary disease) J44.9 Multi-vessel coronary artery stenosis I25.10 Unstable angina pectoris I20.0
--- NOTE | 2020-11-08 11:49 | PC.NURSE ---
Discharge instructions given per the physician's orders. Patient verbalized understanding of teaching and did not have any further questions. IV has been removed. Patient dressed self. Stent card is in patient's possession. No further needs identified at this time. Patient to be driven home by in private vehicle.
--- NOTE | 2020-11-08 12:19 | P.PN_ITS ---
Subjective Subjective: Interval history: Patient is doing well. He denies any further chest pain episodes. He wants to go home and does not want to proceed with PCI of LAD/Diagonal and wants medical management Vitals/I&O/Wt Last Vital Signs Temp 98.1 F 11/08/20 07:31 Pulse 79 11/08/20 11:51 Resp 20 H 11/08/20 11:51 BP 120/74 11/08/20 11:51 Pulse Ox 97 11/08/20 11:51 11/07/20 11/08/20 11/08/20 22:59 06:59 14:59 Intake Total 1403.150 / 8024.403 5497 / 2503.150 620 / 620 Output Total 600 / 700 Balance 1403.150 / 1303.150 500 / 1803.150 620 / 620 Weight last 48 hrs Weight 121 lb 3.2 oz Weight 121 lb 14.4 oz Physical Exam Narrative: EXAM NARRATIVE: GENERAL: Patient is alert, awake and oriented x3.Cachectic, barrel chest. [] NECK: No jugular vein distension. [] HEENT: No cyanosis. No icterus. No pallor. [] HEART: Irregularly irregular, tachycardia. No murmur, rub or gallop. [] LUNGS: Clear to auscultate bilaterally. [] ABDOMEN: Soft, nontender and nondistended. Positive bowel sounds. No guarding, rebound or tenderness. [] CENTRAL NERVOUS SYSTEM: Grossly nonfocal. [] EXTREMITIES: Lower extremities with 1+ edema bilaterally. Pulses palpable in the lower extremities, both dorsalis pedis and posterior tibial. [] Data : 11/08/20 04:34 11/08/20 04:34 Micro: Microbiology 11/06/20 22:00 Gram Stain - Final Sputum - Expectorated Sputum Sputum Culture - Preliminary 11/07/20 02:30 Bacterial Antigens - Final Urine Kidney 11/06/20 15:58 Blood Culture - Preliminary Blood NEGATIVE TO DATE 11/06/20 16:00 Blood Culture - Preliminary Blood NEGATIVE TO DATE 11/06/20 18:50 MRSA Culture - Final Nose A&P Assessment and plan (1) NSTEMI (non-ST elevated myocardial infarction): Status: Acute (2) Afib: (3) HLD (hyperlipidemia): (4) CAD (coronary artery disease): (5) COPD (chronic obstructive pulmonary disease): Status: Acute Qualifiers: COPD type: emphysema Emphysema type: centrilobular Qualified Code(s): J43.2 - Centrilobular emphysema Patient's presentation is consistent with NSTEMI. Angiogram showed has complex multivessel coronary artery disease. 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 OM 1 and mid to distal LCx had severe stenosis. Underwent successful revascularization with RADHA X 3. LAD is aneurysmal. Has moderate to severe stenosis in prox to mid segment. Diagonal artery has severe ostial disease. Arteries are heavily calcified and aneurysmal. Patient is not very functional. LAD disease is in an aneurysmal segment. Discussed with patient's that we will need to see how he does with PCI of LCx, if asymptomatic, medical therapy may be a reasonable option for his LAD/Diagonal disease as he would be at a high risk of complications for the procedure. He also wants to be DNR. As patient has done well since PCI of LCx/OM, he does not want to proceed with LAD/Diagonal PCI. We will medically manage patient ECHO showed EF of 40-45% Continue aspirin and plavix for atleast 1 year We recommended patient to stay in hospital for 1 more day however he wants to go home. Thank you for involving us with the care of this patient. Outpatient cardiology follow up. Please call with questions. Attestations Medical Necessity Statement*: Care expected to cross 2 midnights. Coding Level of Care Code Acute Orthophotography Technician for [facility] Diagnoses NSTEMI (non-ST elevated myocardial infarction) I21.4 Afib I48.91 HLD (hyperlipidemia) E78.5 CAD (coronary artery disease) I25.10 COPD (chronic obstructive pulmonary disease) J43.2 COPD type: emphysema Emphysema type: centrilobular
--- NOTE | 2020-11-09 20:14 | PC.RESP ---
Smoking Cessation and Pulmonary Rehab information sent to patient.
== END 2020-11-08 12:21 | disposition home or self-care (01) | DRG 247 ==
LOC: ER 11:26 → CSU 11-07 07:58
PROVIDERS: Internal Medicine; Admitting Provider Student in an Organized Health Care Education/Training Program; Emergency Provider Family Medicine; PCP Family Medicine; Visit Provider Student in an Organized Health Care Education/Training Program
PROC: 027136Z Dilation of Coronary Artery, Two Arteries with Three Drug-eluting Intraluminal Devices, Percutaneous Approach (ICD-10-PCS; principal; 2020-11-07 07:00)
PROC: 027136Z Dilation of Coronary Artery, Two Arteries with Three Drug-eluting Intraluminal Devices, Percutaneous Approach (ICD-10-PCS; 2020-11-07 07:00)
DX: I21.4 Non-ST elevation (NSTEMI) myocardial infarction (principal); I25.110 Atherosclerotic heart disease of native coronary artery with unstable angina pectoris; J43.2 Centrilobular emphysema; Z99.81 Dependence on supplemental oxygen; N40.0 Benign prostatic hyperplasia without lower urinary tract symptoms; G40.909 Epilepsy, unspecified, not intractable, without status epilepticus; I48.91 Unspecified atrial fibrillation; I45.10 Unspecified right bundle-branch block; I71.4 Abdominal aortic aneurysm, without rupture; E78.5 Hyperlipidemia, unspecified; F17.210 Nicotine dependence, cigarettes, uncomplicated; Z66 Do not resuscitate; Z79.02 Long term (current) use of antithrombotics/antiplatelets
CPT/HCPCS: 36415; 71250; 80053; 80061; 81001; 82728; 83036; 83540; 83550; 83735; 83880; 84100; 84145; 84443; 84484; 85025; 85347; 85378; 85610; 85730; 86403; 87040; 87070; 87205; 87641; 87804; 93005; 93306; 93454; 94640; 94664; 96372; 96374; 99285; C1725; C1769; C1874; C1887; C1894; C9600; J1644; J1650; J2250; J2270; J3010; J3490; J3535; J7030; Q0163; Q9967

== ENCOUNTER 2021-05-16 17:34 | Inpatient (IN) | payer MEDICARE, SELFPAY ==
[2021-05-16] VITALS (7 sets, daily range): BP systolic 114–127; BP diastolic 73–78; PULSE 93–138; RESP 17–24; TEMP 35.8–36.4; O2SAT 92–100; BMI 17.8; BMI 16.2
--- NOTE | 2021-05-16 17:44 | ED_ITS ---
HPI - SOB/Dyspnea General: Chief Complaint: Shortness of Breath/Dyspnea Stated Complaint: COPD EXACERBATION Time Seen by Provider: 05/16/21 17:44 History of Present Illness: HPI Narrative: Mr. Yip is a 75-year-old gentleman with complex past medical history including COPD, coronary artery disease, atrial fibrillation, chronic hypoxic respiratory failure at 4 L at baseline who presents to the emergency department due to shortness of breath. Symptoms have been gradually worsening over the past few days. He does have cough though this is only minimally worse than normal. He denies specific other infectious symptoms. Course has been worsening. Symptoms have progressed to the point that they are moderate to severe and worse with exertion. The patient was found to have oxygen saturation of 85% on home 4 L of oxygen was brought to the emergency department. No other specific exacerbating or relieving factors identified. Review of Systems General: Reports: 10 or more systems reviewed and unremarkable except in HPI and below PFSH ED PFSH: Medical History Abdominal aortic aneurysm BPH (benign prostatic hyperplasia) CAD (coronary artery disease) COPD (chronic obstructive pulmonary disease) HLD (hyperlipidemia) New onset atrial fibrillation Seizure Surgical History History of appendectomy Presence of drug coated stent in left circumflex coronary artery S/P PTCA (percutaneous transluminal coronary angioplasty) Family History Other CAD (coronary artery disease) Cancer Social History Smoking and tobacco status: current every day smoker cigarettes Packs smoked per day: 0.5 Years cigarettes smoked: 67 Quit status (tobacco): considering quitting Second hand smoke exposure: Yes Smoking risk assessment/counseling performed?: Yes Alcohol intake: never Lives independently: Yes Household members: spouse Housing: House Marital status: service: No Current occupational status: retired Pets and animals: No History of recent travel: No Current gender identity: Male Physical Exam Narrative: EXAM NARRATIVE: GENERAL/CONSTITUTIONAL - ill-appearing. resp distress. Eyes - PERRL, no conjunctival injection ENMT - Atraumatic external nose and ears. dry mucous membranes NECK - supple. trachea midline CARDIOVASCULAR - tachycardic rate and irregular rhythm. No peripheral edema RESPIRATORY - decreased lung sounds throughout. Increased accessory muscle use and work of breathing when removed from oxygen or with exertion. Supplemental oxygen in place. ABDOMEN/GI - Nontender/Nondistended. MSK - Extremities without obvious deformity or tenderness to palpation SKIN - Warm, Dry NEURO - alert and appropriately oriented. Moves all extremities equally. Course ED course: - Patient was seen and evaluated by me at bedside - Patient placed on cardiac monitors, IV access obtained - Initial evaluation notable for exam as above - Symptom treatment ordered. Diltiazem bolus and drip ordered for atrial fibri llation with RVR. - Labs notable for no leukocytosis. Metabolic panel without acute electrolyte derangement to explain symptoms. ABG obtained with patient already on oxygen. - Imaging notable for possible pneumonia. - IV antibiotics ordered. - Upon serial reexamination after treatment the patient was improved - Based on patient history, evaluation, labs, and imaging as interpreted the most likely cause of the patient's condition is community-acquired pneumonia, COPD exacerbation, atrial fibrillation with rapid ventricular response requiring IV drip - The results of ED evaluation were discussed with the patient including plan for admission due to requirement for level of care not available if discharged to prevent significant worsening/deterioration. -Hospitalist service contacted and agreed admit the patient - Patient was admitted without further deterioration or significant events. Vital Signs: Vital signs: Vital Signs Temperature 97.8 F 05/18/21 08:00 Pulse Rate 80 05/18/21 12:10 Respiratory Rate 16 05/18/21 08:37 Blood Pressure 112/60 05/18/21 08:00 Pulse Oximetry 93 05/18/21 08:40 MDM - SOB/Dyspnea Medical Records: Attestation: I reviewed the patient's medical records. Lab Data: Attestation: I reviewed the patient's lab results. Labs: Lab Results 05/16/21 05/16/21 05/16/21 17:57 18:00 18:00 WBC 9.5 10^3/uL 10^3/ uL (4.0-10.0) RBC 3.96 10^6/uL L 10 ^6/uL (4.1-5.3) Hgb 12.6 g/dL g/dL (11.7-16.6) Hct 39.0 % L % (42.0-52.0) MCV 98.5 fl H fl (80-94) MCH 31.8 pg pg (28.0-34.0) MCHC 32.3 g/dL g/dL (30.0-36.0) RDW 13.6 % % (12.1-15.1) Plt Count 199 10^3/cmm 10^3 /cmm (130-400) MPV 9.4 fL fL (7.4-10.4) Neut % (Auto) 90.2 % % Lymph % (Auto) 3.4 % % Laurel % (Auto) 5.5 % % Eos % (Auto) 0.3 % % Baso % (Auto) 0.3 % % Neut # (Auto) 8.55 10^3/uL H 10 ^3/uL (1.8-7.7) Lymph # (Auto) 0.3 10^3/uL L 10^ 3/uL (0.8-4.8) Laurel # (Auto) 0.5 10^3/uL 10^3/ uL (0.2-0.9) Eos # (Auto) 0.0 10^3/uL 10^3/ uL (0.0-0.8) Baso # (Auto) 0.0 10^3/uL 10^3/ uL (0.0-0.1) Nucleated RBC % (a uto) 0 % % Nucleated RBCs # 0.0 /100WBC /100W BC Specimen Type Arterial Sample Site Brachial, left ABG pH 7.43 (7.35-7.45) ABG pCO2 51.6 mmHg H mmHg (35-45) ABG pO2 125.0 mmHg H mmHg (80.0-100.0) ABG HCO3 34.2 mmol/L H mmo l/L (22-26) ABG Base Excess 8.5 mmol/L H mmol /L (-2.0-2.0) Cam Test Pos Hematocrit 36.1 % L % (42-52) Hgb O2 Saturation 96.1 % % (95-100) Carboxyhemoglobin 2.7 %THgb %THgb (0.4-20.1) Methemoglobin 1.1 % % (0.4-1.5) Total Hemoglobin 11.8 g/dL L g/dL (14-18) O2 Delivery Device Nrb O2 Liters/Min 10.0 % % FiO2 100.0 % % Heel Painter ID [place]ro Sodium 136 mmol/L mmol/L (136-145) Potassium 4.7 mmol/L mmol/L (3.5-5.1) Chloride 95 mmol/L L mmol/ L (98-107) Carbon Dioxide 29 mmol/L mmol/L (22-29) Anion Gap 16.7 (5-19) BUN 17 mg/dL mg/dL (8-23) Creatinine 0.5 mg/dL L mg/dL (0.7-1.2) GFR Calculation Not Reportable Glucose 86 mg/dL mg/dL (65-115) Calculated Osmolal ity 283 mOsm/kg L mOs m/kg (285-295) Lactic Acid Calcium 8.1 mg/dL L mg/dL (8.5-10.5) Magnesium 1.6 mg/dL L mg/dL (1.7-2.3) Total Bilirubin 0.3 mg/dL mg/dL (0.15-1.2) AST 18 U/L U/L (0-40) ALT 14 U/L U/L (0-41) Alkaline Phosphata se 106 IU/L IU/L (40-130) Troponin T Baselin e Troponin T 120 Min augustine Delta Troponin T NT-Pro-B Natriuret Pep 2836 pg/mL H pg/m L (0-450) Total Protein 6.0 g/dL L g/dL (6.6-8.7) Albumin 3.7 g/dL g/dL (3.5-5.2) Globulin 2.3 g/dL g/dL (1.3-4.6) TSH 2.76 uIU/mL uIU/m L (0.27-4.20) Coronavirus 229E ( PCR) SARS-CoV-2 (PCR) SARS-CoV-2 Ag (Rap id) 05/16/21 05/16/21 05/16/21 18:00 18:00 18:16 WBC RBC Hgb Hct MCV MCH MCHC RDW Plt Count MPV Neut % (Auto) Lymph % (Auto) Laurel % (Auto) Eos % (Auto) Baso % (Auto) Neut # (Auto) Lymph # (Auto) Laurel # (Auto) Eos # (Auto) Baso # (Auto) Nucleated RBC % (a uto) Nucleated RBCs # Specimen Type Sample Site ABG pH ABG pCO2 ABG pO2 ABG HCO3 ABG Base Excess Cam Test Hematocrit Hgb O2 Saturation Carboxyhemoglobin Methemoglobin Total Hemoglobin O2 Delivery Device O2 Liters/Min FiO2 Heel Painter ID Sodium Potassium Chloride Carbon Dioxide Anion Gap BUN Creatinine GFR Calculation Glucose Calculated Osmolal ity Lactic Acid 0.9 mmol/L mmol/L (0.5-2.2) Calcium Magnesium Total Bilirubin AST ALT Alkaline Phosphata se Troponin T Baselin e 37 ng/L H ng/L (0-15) Troponin T 120 Min augustine Delta Troponin T NT-Pro-B Natriuret Pep Total Protein Albumin Globulin TSH Coronavirus 229E ( PCR) Not detected (NOT DETECT) SARS-CoV-2 (PCR) Not detected (NOT DETECT) SARS-CoV-2 Ag (Rap id) 05/16/21 05/16/21 19:11 19:58 WBC RBC Hgb Hct MCV MCH MCHC RDW Plt Count MPV Neut % (Auto) Lymph % (Auto) Laurel % (Auto) Eos % (Auto) Baso % (Auto) Neut # (Auto) Lymph # (Auto) Laurel # (Auto) Eos # (Auto) Baso # (Auto) Nucleated RBC % (a uto) Nucleated RBCs # Specimen Type Sample Site ABG pH ABG pCO2 ABG pO2 ABG HCO3 ABG Base Excess Cam Test Hematocrit Hgb O2 Saturation Carboxyhemoglobin Methemoglobin Total Hemoglobin O2 Delivery Device O2 Liters/Min FiO2 Heel Painter ID Sodium Potassium Chloride Carbon Dioxide Anion Gap BUN Creatinine GFR Calculation Glucose Calculated Osmolal ity Lactic Acid Calcium Magnesium Total Bilirubin AST ALT Alkaline Phosphata se Troponin T Baselin e Troponin T 120 Min augustine 38.26 ng/L H ng/L (0-15) Delta Troponin T 1.26 ABS# ABS# (0-10) NT-Pro-B Natriuret Pep Total Protein Albumin Globulin TSH Coronavirus 229E ( PCR) SARS-CoV-2 (PCR) SARS-CoV-2 Ag (Rap id) Cancelled EKG Data^: EKG 1: Attestation: I personally reviewed and interpreted this EKG as follows: EKG Interpretation Date: 05/16/21 EKG interpretation time: 18:09 Interpretation: Twelve-lead EKG shows an irregular rhythm at a rate of 130. No NC interval, QRS duration 137, QTc 398. Borderline axis. Interpretation: Atrial fibrillation with rapid ventricular response. Bundle branch block. Discharge Plan Discharge Patient Disposition: Admitted As Inpatient Admit Provider: David Ghotra Clinical Impression: Community acquired pneumonia, Acute exacerbation of chronic obstructive airways disease, Atrial fibrillation with RVR Condition: Stable Discharge Diet: Cardiac Discharge Activity: Resume usual activity and Oxygen as instructed Coding Level of Care Code ED Making Line Worker for Rakesh Sharma
--- NOTE | 2021-05-16 17:50 | XRR_ITS ---
PROCEDURE INFORMATION: Exam: XR Chest Exam date and time: 05/16/2021 5:50 PM Age: 75 years old Clinical indication: Shortness of breath; Additional info: SOB TECHNIQUE: Imaging protocol: XR of the chest. Views: 1 view. COMPARISON: CT chest con [id number] 11/06/2020 3:28 PM FINDINGS: Lungs: The lungs are hyperinflated, consistent with COPD. Left lower lobe airspace disease, consistent with pneumonia. The right lung is free of infiltrates. Pleural spaces: Small left pleural effusion. No right pleural effusion. No pneumothorax. Heart/Mediastinum: No cardiomegaly. Vasculature: Tortuous thoracic aorta. Bones/joints: Unremarkable. XR/XR chest 1V portable [id number] IMPRESSION: 1. Left lower lobe airspace disease, consistent with pneumonia. 2. Small left pleural effusion.
--- NOTE | 2021-05-16 17:50 | ECG_ITS ---
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 Measurements Intervals [place] Rate: 130 P: UT: QRS: 180 QRSD: 137 T: 58 QT: 321 QTc: 473 Interpretive Statements ATRIAL FIBRILLATION WITH RAPID VENTRICULAR RESPONSE INDETERMINATE AXIS RIGHT BUNDLE BRANCH BLOCK [120+ ms QRS DURATION, UPRIGHT V1, 40+ ms S IN I/aVL/V4/V5/V6] Compared to ECG 11/06/2020 17:19:02 Indeterminate axis now present Right-axis deviation no longer present Myocardial infarct finding no longer present Electronically Signed On 05-16-2021 20:36:23 MARKETING DATABASE ANALYST by Nasim Cordero M.D. [id number]
[2021-05-16 18:09] LABS: Basophils % 0.3 %; Eosinophils % 0.3 %; Hemoglobin 12.6 g/dL (11.7-16.6); Lymphocytes # 0.3 10^3/uL (0.8-4.8); Lymphocytes % 3.4 %; Mean Corpuscular HGB Conc 32.3 g/dL (30.0-36.0); Mean Corpuscular Hemoglobin 31.8 pg (28.0-34.0); Mean Corpuscular Volume 98.5 fl (80-94); Mean Platelet Volume 9.4 fL (7.4-10.4); Monocytes # 0.5 10^3/uL (0.2-0.9); Monocytes % 5.5 %; Neutrophils # 8.55 10^3/uL (1.8-7.7); Neutrophils % 90.2 %; Nucleated Red Blood Cells % 0 %; Platelet Count 199 10^3/cmm (130-400); Red Blood Count 3.96 10^6/uL (4.1-5.3); Red Cell Distribution Width 13.6 % (12.1-15.1); White Blood Count 9.5 10^3/uL (4.0-10.0)
[2021-05-16 18:09] LABS: ABG PCO2 51.6 mmHg (35-45); ABG PH Result 7.43 (7.35-7.45); Arterial Blood Gas Hematocrit 36.1 % (42-52); Base Excess ABG 8.5 mmol/L (-2.0-2.0); Blood Gas Allen Test Pos; Blood Gas Operator Identificat MONRO; Blood Gas Sample Site Brachial, left; Blood Gas Sample Type Arterial; Carboxyhemoglobin 2.7 %THgb (0.4-20.1); HCO3 ABG 34.2 mmol/L (22-26); HGB O2 Sat 96.1 % (95-100); Methemoglobin 1.1 % (0.4-1.5); Oxygen Device NRB; Total Hemoglobin 11.8 g/dL (14-18)
[2021-05-16 18:27] LABS: Troponin(5th) Baseline 37 ng/L (0-15)
--- NOTE | 2021-05-16 18:27 | PC.NURSE ---
PT PLACED ON CONTINUOUS SPO2, NIBP, AND CM.
[2021-05-16 18:28] LABS: Lactic Sepsis W/Reflex 0.9 mmol/L (0.5-2.2)
[2021-05-16] MEDS: ipratropium-albuterol 3 mL Neb INHALATION (18:30)
[2021-05-16] MEDS: sodium chloride 0.9% 500 ML 999 ML IV (18:33)
[2021-05-16 18:52] LABS: Alanine Aminotransferase 14 U/L (0-41); Albumin Level 3.7 g/dL (3.5-5.2); Alkaline Phosphatase 106 IU/L (40-130); Anion Gap 16.7 (5-19); Aspartate Amino Transferase 18 U/L (0-40); Blood Urea Nitrogen 17 mg/dL (8-23); Calcium 8.1 mg/dL (8.5-10.5); Carbon Dioxide 29 mmol/L (22-29); Chloride 95 mmol/L (98-107); Globulin 2.3 g/dL (1.3-4.6); Glucose 86 mg/dL (65-115); Magnesium 1.6 mg/dL (1.7-2.3); NT Pro B Type Natriuretic Pept 2836 pg/mL (0-450); Osmolality Calculated 283 mOsm/kg (285-295); Potassium 4.7 mmol/L (3.5-5.1); Sodium 136 mmol/L (136-145); Thyroid Stimulating Hormone 2.76 uIU/mL (0.27-4.20); Total Bilirubin 0.3 mg/dL (0.15-1.2)
--- NOTE | 2021-05-16 18:58 | PC.NURSE ---
REPORT GIVEN TO [facility].
--- NOTE | 2021-05-16 19:04 | PC.NURSE ---
Addendum entered by Karthik Gold RN 05/16/21 19:04: HE STATES THAT HE IS ALLERGIC TO ALL ANTIBIOTICS. Original Note: PT REFUSED ANTIBIOTIC.
[2021-05-16] MEDS: cefTRIAXone 1,000 MG in sodium chloride 0.9% (plus) 50 ML 100 MG IV (19:36)
--- NOTE | 2021-05-16 19:50 | ECG_ITS ---
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 Measurements Intervals [place] Rate: 70 P: MT: QRS: 23 QRSD: 149 T: 62 QT: 446 QTc: 483 Interpretive Statements ATRIAL FIBRILLATION INDETERMINATE AXIS RIGHT BUNDLE BRANCH BLOCK [120+ ms QRS DURATION, UPRIGHT V1, 40+ ms S IN I/aVL/V4/V5/V6] SEPTAL MYOCARDIAL INFARCTION , OF INDETERMINATE AGE [40+ ms Q WAVE IN V1/V2] Compared to ECG 05/16/2021 18:03:29 Myocardial infarct finding now present Electronically Signed On 05-18-2021 17:15:33 MANAGER BENCH by Tara Bravo M.D. [id number]
[2021-05-16] MEDS: doxycycline 100 MG in sodium chloride 0.9% (plus) 100 ML IV (20:08)
[2021-05-16] MEDS: magnesium sulfate premix 2 GM/50 ML PIGGYBACK IV (20:08)
[2021-05-16 20:23] LABS: Troponin 5 2HR 38.26 ng/L (0-15); Troponin 5 2HR Delta 1.26 ABS# (0-10)
[2021-05-16 20:51] LABS: Adenovirus Not Detected (NOT DETECT); Chlamydia Pneumoniae Not Detected (NOT DETECT); Coronavirus 229E,HKU1,NL63,OC4 Not Detected (NOT DETECT); Human Metapneumovirus Not Detected (NOT DETECT); Human Rhinovirus/Enterovirus Not Detected (NOT DETECT); Influenza A Not Detected (NOT DETECT); Influenza A H1 Not Detected (NOT DETECT); Influenza A H1-2009 Not Detected (NOT DETECT); Influenza A H3 Not Detected (NOT DETECT); Influenza B Not Detected (NOT DETECT); Mycoplasma Pneumoniae Not Detected (NOT DETECT); Parainfluenza Virus Type 1 Not Detected (NOT DETECT); Parainfluenza Virus Type 2 Not Detected (NOT DETECT); Parainfluenza Virus Type 3 Not Detected (NOT DETECT); Parainfluenza Virus Type 4 Not Detected (NOT DETECT); Respiratory Syncytial Virus A Not Detected (NOT DETECT); Respiratory Syncytial Virus B Not Detected (NOT DETECT); SARS-COV-2 Not Detected (NOT DETECT)
--- NOTE | 2021-05-16 22:14 | PC.NURSE ---
Admit Note Patient admitted to CSU room 104 from ED via stretcher. Med rec completed and covering service notified. Patient presents with increased shortness of breath and elevated heart rate. Patient currently on cardizem drip at 10ml/hr. Patient appears to be very thin . Patient denies pain. Meal of 2 sandwichs and pudding provided. Patient expressed great thanks stating, I have not eaten anything all day. Admission completed as documented. Orders reviewed & will continue to monitor. Patient and/or access services representative oriented to environment, equipment, and informed of the following as found in the admission booklet: patient rights & responsibilities, visitor policy, hand and respiratory hygiene practice. Other education includes: cardizem. Patient verbalized complete understanding.
--- NOTE | 2021-05-16 23:50 | ECG_ITS ---
[facility] Test Date: 2021-05-17 Pat Name: Geo Yip Department: Room: 104 Gender: Male Naval Science Teacher: : 1945 Requested By: Chavez De Leon Order Number: [id number] Gibbs MD: Taar Bravo M.D. Measurements Intervals [place] Rate: 77 P: MA: QRS: 25 QRSD: 150 T: 61 QT: 430 QTc: 487 Interpretive Statements ATRIAL FIBRILLATION INDETERMINATE AXIS RIGHT BUNDLE BRANCH BLOCK [120+ ms QRS DURATION, UPRIGHT V1, 40+ ms S IN I/aVL/V4/V5/V6] SEPTAL MYOCARDIAL INFARCTION , OF INDETERMINATE AGE [40+ ms Q WAVE IN V1/V2] Compared to ECG 05/17/2021 00:34:51 No significant changes Electronically Signed On 05-18-2021 17:15:22 SCAFFOLDER by Tara Bravo M.D. [email or web address].[id number]
[2021-05-17] VITALS (19 sets, daily range): BP systolic 97–119; BP diastolic 43–75; PULSE 73–101; RESP 12–24; TEMP 36.6; O2SAT 91–100
--- NOTE | 2021-05-17 00:35 | P.HP_ITS ---
Providers/Chief Complaint Admitting Physician: David Ghotra Primary Care Provider: Carmelita Piper MD Chief Complaint: COPD EXACERBATION History of Present Illness 75-year-old with a past medical history significant for hypertension, hyperlipidemia, seizure disorder, BPH, paroxysmal atrial fibrillation, multi vessel coronary artery disease s/p hx of PCI/DESx 2, chronic systolic heart failure with EF of 40-45%, tobacco abuse, and o2 dependent chronic obstructive pulmonary disease on 4L at baseline who presented to ER with difficulty breathing. Symptoms apparently were increasing for the past few days. Denies chest pain. Apparently was noted to have O2 saturation of 85% at home.Vital signs on arrival to emergency room showed a temperature of 96.5, heart rate of 127, blood pressure of 114/73 with oxygen saturation of 98% however this was on 6 L of O2.Laboratory workup showed a WBC of 9.5, hemoglobin of 12.6, hematocrit of 39.0 and a platelet count of 199. Arterial blood gases showed a pH of 7.43, pCO2 of 51.6, PO2 125, bicarb of 34.2.Sodium 136, potassium 4.7, chloride 95, bicarb 29, BUN 17 and creatinine of 0.5.Troponin T delta of 1.26. ProBNP of 2836. COVID-19 negative.Chest x-ray showed left lower lobe airspace disease consistent with pneumonia and small left pleural effusion. In emergency room was found to be in atrial fibrillation with rapid ventricular response. ER Meds: Cardizem 15 mg IV x 1 Cardizem drip Ceftriaxone 1g Doxycycline 100 mg IV Duoneb inh x 1 Magnesium 2g Iv x 1 NS 1L bolus Solu-medrol 125mg IV x1 Review of Systems General: Reports: 10 or more systems reviewed and unremarkable except in HPI and below (Patient was very drowsy at the time of my evaluation not fully obtained) Medications/Allergies Home Medications Medication Instructions Recorded Confirmed Last Taken Type Combivent Respimat 2 puff INHALATION QID 11/06/20 05/16/21 05/15/21 21:00 Histo ry clopidogrel 75 mg PO DAILY 11/06/20 05/16/21 05/15/21 08:00 History epinephrine 0.3 mg SUBCUT ONCE PRN 11/06/20 05/16/21 Unknown History ezetimibe 10 mg PO DAILY 11/06/20 05/16/21 05/15/21 08:00 History fluticasone propion-salmeterol 1 inh INHALATION BID 11/06/20 05/16/21 05/15/21 21:00 History [Wixela Inhub] hydrocodone-acetaminophen 1 tab PO Q6H PRN 11/06/20 05/16/21 05/15/21 21:00 History nitroglycerin 0.4 mg SUBLINGUAL Q5MIN PRN 11/06/20 05/16/21 Unknown History phenobarbital 97.2 mg PO BID 11/06/20 05/16/21 05/15/21 21:00 History simvastatin 80 mg PO BEDTIME 11/06/20 05/16/21 05/15/21 21:00 History tamsulosin 0.8 mg PO DAILY 11/06/20 05/16/21 05/15/21 08:00 History aspirin 81 mg PO DAILY #30 tab 11/08/20 05/16/21 05/15/21 08:00 Rx metoprolol tartrate 37.5 mg PO BID #80 tab 11/08/20 05/16/21 05/15/21 21:00 Rx isosorbide mononitrate 30 mg 30 mg PO DAILY #30 tab 12/03/20 05/16/21 05/15/21 08:00 Rx tablet,extended release 24 hr ysgdlveaiy-boyeswws-qsyqrvyrsv 2 inh INHALATION BID 05/16/21 05/16/21 05/15/21 21:00 History [Gaudencioi [employer]] felodipine 2.5 mg PO DAILY 05/16/21 05/16/21 05/15/21 08:00 History Allergies Allergy/AdvReac Type Severity Reaction Status Date / Time decongestants Allergy Severe shuts down Uncoded 12/12/20 15:34 kidneys PFSH Acute PFSH: Medical History Abdominal aortic aneurysm BPH (benign prostatic hyperplasia) CAD (coronary artery disease) COPD (chronic obstructive pulmonary disease) HLD (hyperlipidemia) New onset atrial fibrillation Seizure Surgical History History of appendectomy Presence of drug coated stent in left circumflex coronary artery S/P PTCA (percutaneous transluminal coronary angioplasty) Family History Other CAD (coronary artery disease) Cancer Social History Smoking and tobacco status: current every day smoker cigarettes Packs smoked per day: 0.5 Years cigarettes smoked: 67 Quit status (tobacco): considering quitting Second hand smoke exposure: Yes Smoking risk assessment/counseling performed?: Yes Alcohol intake: never Lives independently: Yes Household members: spouse Housing: House Marital status: service: No Current occupational status: retired Pets and animals: No History of recent travel: No Current gender identity: Male Vitals/I&O/Wt Last Vital Signs Temp 97.9 F 05/17/21 03:17 Pulse 90 05/17/21 04:10 Resp 18 05/17/21 03:17 BP 97/43 05/17/21 03:17 Pulse Ox 100 05/17/21 03:17 05/16/21 05/16/21 05/17/21 14:59 22:59 06:59 Intake Total 1065.167 / 1065.167 145 / 1210.167 Output Total 300 / 300 Balance 765.167 / 765.167 145 / 910.167 Weight last 48 hrs Weight 55.883 kg Weight 61.235 kg Physical Exam Narrative: EXAM NARRATIVE: General- Sleepy at the time of my eval HEENT; Grossly unremarkable CVS; Irregularly irregular Chest; Non-labored Abd; Non-distended Ext; No edema Data : 05/16/21 18:00 05/16/21 18:00 Micro: Microbiology 05/16/21 19:59 Blood Culture - Preliminary Blood SPECIMEN COLLECTED 05/16/21 19:58 Blood Culture - Preliminary Blood SPECIMEN COLLECTED A&P Assessment and plan (1) Community acquired pneumonia: Status: Acute (2) Acute exacerbation of chronic obstructive airways disease: Status: Acute (3) Atrial fibrillation with RVR: Status: Acute (4) Smoker: Status: Acute (5) Multi-vessel coronary artery stenosis: Status: Acute Additional A&P Information O2 dependent COPD exacerbation Duoneb q6hr Solu-medrol 40 mg IV q12 Advair BID Wean to baseline 4L as tolerated as tolerated Suspected LLL pneumonia Rocephin 1g IV q24hr Doxycycline 100 mg PO BID Procal in am Atrial Fib with RVR Johnny correaip Resume metoprolol Additional Medical Problems Multi-vessels CAD on Asa/Plavix/statin Hypertension Hyperlipidemia Hx of Seizure disorder on phenobarb Tobacco abuse BPH on flomax DVT ppx Lovenox 40 mg SQ daily Attestations Medical Necessity Statement*: Anticipate over 2 midnights stay in hospital for evaluation and treatment Time Spent in Patient Care: Greater than 35 minutes (>than 50% of time spent in counselling and/or direct pt care on unit) . Coding Level of Care Code Acute Quality Consultant for g Fwd Diagnoses Community acquired pneumonia J18.9 Acute exacerbation of chronic obstructive airways disease J44.1 Atrial fibrillation with RVR I48.91 Smoker F17.200 Multi-vessel coronary artery stenosis I25.10
[2021-05-17 00:40] LABS: Troponin 5 6HR 39.28 ng/L (0-15); Troponin 5 6HR Delta 2.28 ng/L (0-12)
[2021-05-17] MEDS: ipratropium-albuterol 3 mL Neb INHALATION ×4 (02:53→20:12)
--- NOTE | 2021-05-17 06:56 | PC.NURSE ---
Patient continues to remain in afib with resolution of RVR. Patient currently has cardizem at 10ml/hr with heart rate 78. Patient denies pain or needs. No distress observed.
[2021-05-17] MEDS: isosorbide mononitrate ER 30 mg Tablet PO (09:16)
[2021-05-17] MEDS: ezetimibe 10 mg Tablet PO (09:17)
[2021-05-17] MEDS: metoprolol tartrate 25 mg Tablet 37.5 MG PO ×2 (09:17→18:01)
[2021-05-17] MEDS: PHENobarbital 32.4 mg Tablet 97.2 MG PO ×2 (09:17→18:01)
[2021-05-17] MEDS: aspirin 81 mg EC Tablet PO (09:17)
[2021-05-17] MEDS: tamsulosin 0.4 mg Capsule 0.8 MG PO (09:17)
[2021-05-17] MEDS: doxycycline 100 mg Tablet PO (09:17)
[2021-05-17] MEDS: clopidogrel 75 mg Tablet PO (09:19)
[2021-05-17] MEDS: enoxaparin 40 mg/0.4 mL Syringe SUBCUT (09:20)
--- NOTE | 2021-05-17 11:12 | USCV_ITS ---
Phi Geo Age: 75 Gender: M : 1945 Exam Date: 05/17/2021 12:44 Ordering Phys: Jennifer Gaines MD Technologist: Lucy Duncan [place] [facility] [place]: SOB WITH PNEUMONIA BP: 115 / 71 HR: 84 Rhythm: Sinus Technical Quality: Adequate MEASUREMENTS (Male / Female) Normal Values 2D ECHO LV Diastolic Diameter PLAX 4.1 cm 4.2 - 5.9 / 3.9 - 5.3 cm LV Systolic Diameter PLAX 2.3 cm LV Chamber Size 4.3 cm IVS Diastolic Thickness 1.2 cm 0.6 - 1.0 / 0.6 - 0.9 cm IVS Systolic Thickness 1.6 cm LVPW Diastolic Thickness 1.2 cm 0.6 - 1.0 / 0.6 - 0.9 cm LVPW Systolic Thickness 1.5 cm RV Chamber Size 3.2 cm LVOT Diameter 2.0 cm LV Ejection Fraction 2D Teich 75.0 % LA Diameter 3.2 cm LA Width 3.9 cm LA Height 4.6 cm RA Width 4.5 cm RA Height 6.3 cm Aorta at Sinotubular Diameter 3.6 cm M-MODE Aortic Annulus Diameter 6.3 cm LA Ao Ratio MM 0.6 DOPPLER AV Peak Velocity 130.0 cm/s LVOT Peak Velocity 91.0 cm/s AV Area Cont Eq vti 2.3 cm squared AV Area Cont Eq pk 2.2 cm squared MV Area PHT 4.6 cm squared MV E' Velocity 77.0 cm/s Mitral E to MV E' Ratio 2.3 Mitral E to LV E' Lateral Ratio 2.1 Mitral E to LV E' Septal Ratio 2.6 TR Peak Velocity 289.3 cm/s TR Peak Gradient 33.5 mmHg TR Mean Velocity 194.9 cm/s TR Mean Gradient 17.8 mmHg TR Velocity Time Integral 72.7 cm TV Peak E Velocity 65.0 cm/s Right Atrial Pressure 3.0 mmHg Pulmonary Artery Systolic Pressu 36.5 mmHg PV Peak Velocity 53.0 cm/s RV Acceleration Time 0.1 s RV Ejection Time 0.3 s RV AcT/ET 0.4 FINDINGS Left Ventricle Normal left ventricular size, systolic function and increased wall thickness, with no regional wall motion abnormalities. Left ventricular ejection fraction is estimated at 65 %. Mild concentric left ventricular hypertrophy. Rhythm precludes evaluation of diastolic function. Flattened septum in systole consistent with right ventricle pressure overload. Right Ventricle Normal right ventricular size and systolic function. Right ventricular systolic pressure 54 mmHg. Right Atrium Moderately increased right atrial size. Left Atrium Markedly increased left atrial size. Mitral Valve Structurally normal mitral valve. No mitral valve stenosis. Moderate mitral valve regurgitation. Aortic Valve Structurally normal trileaflet aortic valve. No aortic valve stenosis. No aortic valve regurgitation. Tricuspid Valve Structurally normal tricuspid valve. No tricuspid valve stenosis. Moderate tricuspid valve regurgitation. Pulmonic Valve Structurally normal pulmonic valve. No pulmonary valve stenosis. Trace pulmonary valve regurgitation. Pericardium No pericardial effusion. Aorta Normal size aortic root. Normal sized inferior vena cava. CONCLUSIONS 1. Normal left ventricular size, systolic function and increased wall thickness, with no regional wall motion abnormalities. Left ventricular ejection fraction is estimated at 65 %. Mild concentric left ventricular hypertrophy. Flattened septum in systole consistent with right ventricle pressure overload. 2. Normal right ventricular size and systolic function. 3. Markedly increased left atrial size. 4. Moderate mitral and tricuspid valve regurgitation. 5. Moderate pulmonary hypertension with pulmonary artery pressure estimated at 54 mm Hg. 6. When compared to previous study dated 11/07/20, left ventricular systolic function has improved. Tara Bravo MD (Electronically Signed) Final Date: 18 May 2021 12:08 S
--- NOTE | 2021-05-17 11:13 | PM.PN ---
Subjective Subjective: Interval history: Seen in presence of his at bedside. Pt down to 2L NC (home baseline 2L as well). In ER pt was on 6L. Shortness of breath is better. He says he just could not breath yesterday. Denies LE edema. Uses combivent at home. On cardizem drip currently. HR 70's right now. Offer no other complaints. Vitals/I&O/Wt Last Vital Signs Temp 97.9 F 05/17/21 03:17 Pulse 80 05/17/21 09:25 Resp 14 05/17/21 09:25 BP 115/71 05/17/21 08:00 Pulse Ox 93 05/17/21 09:25 05/16/21 05/17/21 05/17/21 22:59 06:59 14:59 Intake Total 1065.167 / 1065.167 145 / 1210.167 120 / 120 Output Total 300 / 300 300 / 300 Balance 765.167 / 765.167 145 / 910.167 -180 / -180 Weight last 48 hrs Weight 55.883 kg Weight 61.235 kg Physical Exam Narrative: EXAM NARRATIVE: General: Alert oriented x3, patient seen laying in bed (flat). Cachectic appearing, temporal wasting. Frail male. HEENT: Normocephalic, atraumatic, EOMI, breathing 2L NC Cardio: Irregularly irregular, no gross murmers, normal S1-S2, appears euvolemic Respiratory: Diminished b/l air entry, no gross wheezes or ronchi, reduced air entry, no crackles at bases, GI: Abdomen soft, nontender, nondistended, bowel sounds + Extremities: Pulses 2+, no edema, no cyanosis, very thin frail extremities Data : 05/16/21 18:00 05/16/21 18:00 Micro: Microbiology 05/16/21 19:59 Blood Culture - Preliminary Blood SPECIMEN COLLECTED 05/16/21 19:58 Blood Culture - Preliminary Blood SPECIMEN COLLECTED A&P Assessment and plan (1) Acute exacerbation of chronic obstructive airways disease: Status: Acute (2) Atrial fibrillation with RVR: Status: Acute (3) Community acquired pneumonia: Status: Acute (4) Smoker: Status: Acute Additional A&P Information #Acute on chronic hypoxic respiratory failure (on 2L ATC) #Atrial fibrillation with RVR - rate controlled now #CAP Left lower lobe #Smoker #Hx of NSTEMI 12/12, multivessel CAD s/p stents #Chronic systolic CHF EF 40% 12/12 - COntinue aspirin, plavix - Duoneb q4 hours - cover with ceftriaxone and azithromycin - wean off cardizem drip - Continue imdur, lopressor - check mrsa pcr - solumedrol 40 BID - Continue current management - Check echo Full code DVT PPX: lovenox Attestations Medical Necessity Statement*: > 24 hours Coding Level of Care Code Acute Compensation/Benefits Specialist for g Fwd Diagnoses Acute exacerbation of chronic obstructive airways disease J44.1 Atrial fibrillation with RVR I48.91 Community acquired pneumonia J18.9 Smoker F17.200
--- NOTE | 2021-05-17 11:21 | PC.CHAP ---
Pastoral Care Encounter/Spiritual Assessment Type of Contact [] Declined instrument mechanic weapons system visit [] Patient/Family/Request visit [] Outpatient visit [] Follow-up visit [] Physician referral [] Code/Alert [xx] Routine visit [] Staff referral [] Actively dying [] Patient sleeping [] Family support [] [] Out of room [] Palliative care [] [xx] Receiving care in room [] Pre-surgical visit [] Trauma [] Long length of stay [] ICU visit [] Other: Relational/Emotional Strength [xx] Patient feels connected with others/family/visitors/staff [] Distress [] Loneliness/isolation [] Abandonment Spirituality of Patient [] Person of Clemencia [] Attends Judaism of their Clemencia [xx] Believes in Prayer [xx] Reads Bible or Judaism materials [] There are Spiritual issues to be addressed Statue Maker Interventions [xx] Prayer [xx] Active listening [xx] Non-anxious presence [] Spiritual/emotional support [] Crisis/trauma care [] Spiritual counseling [] Bereavement support [] Provided bereavement packet [xx] Provided Bible/devotional materials [] Provided toy/stuffed animal, coloring book to patient or family member [] Provided Communion [] Anointing/[place] [] Salvation [xx] Completed spiritual assessment [] Other: Impact on Illness or Injury [] Angry [] Fearful [] Anxious [] Often cries [] Exhaustion [] Unable to work [] Unable to attend muslim [] Unable to walk/stand [] Unable to read [] Unable to drive [] Unable to eat/drink [] Unable to sleep [] Unable to be with family [] Patient intubated [] Other: Summary At beginning of visit, asked instrument mechanic weapons system to get nurse because IV was acting strangely and bleeding at entry site. Statue Maker got nurse but had no opportunity to pray for patient directly in room. Prayed outside door. Time spent with patient 4 minutes
[2021-05-17] MEDS: azithromycin 500 MG in sodium chloride 0.9% 250 ML 250 MG IV (11:46)
[2021-05-17] MEDS: atorvastatin 40 mg Tablet PO (20:12)
[2021-05-17] MEDS: cefTRIAXone 1,000 MG in sodium chloride 0.9% (plus) 50 ML 100 MG IV (20:13)
--- NOTE | 2021-05-17 20:18 | PC.NURSE ---
Received report from KATARINA Lam. Patient resting in bed. Denies pain presently. Discussed solumedrol and plan for the night. Patient verbalized understanding. No distress observed at this time. Will continue to monitor.
[2021-05-18] VITALS (8 sets, daily range): BP systolic 112–126; BP diastolic 60–67; PULSE 78–84; RESP 16–20; TEMP 36.6; O2SAT 92–99
[2021-05-18 04:51] LABS: Basophils % 0.2 %; Hematocrit 34.7 % (42.0-52.0); Lymphocytes # 0.3 10^3/uL (0.8-4.8); Lymphocytes % 6.3 %; Mean Corpuscular HGB Conc 31.7 g/dL (30.0-36.0); Mean Corpuscular Hemoglobin 31.6 pg (28.0-34.0); Mean Corpuscular Volume 99.7 fl (80-94); Mean Platelet Volume 9.9 fL (7.4-10.4); Monocytes # 0.3 10^3/uL (0.2-0.9); Monocytes % 4.8 %; Neutrophils # 4.61 10^3/uL (1.8-7.7); Neutrophils % 88.3 %; Nucleated Red Blood Cells % 0 %; Platelet Count 189 10^3/cmm (130-400); Red Blood Count 3.48 10^6/uL (4.1-5.3); Red Cell Distribution Width 13.9 % (12.1-15.1); White Blood Count 5.2 10^3/uL (4.0-10.0)
[2021-05-18 05:16] LABS: Alanine Aminotransferase 19 U/L (0-41); Albumin Level 3.2 g/dL (3.5-5.2); Alkaline Phosphatase 81 IU/L (40-130); Anion Gap 12.9 (5-19); Aspartate Amino Transferase 23 U/L (0-40); Blood Urea Nitrogen 20 mg/dL (8-23); Calcium 8.1 mg/dL (8.5-10.5); Carbon Dioxide 30 mmol/L (22-29); Chloride 99 mmol/L (98-107); Globulin 2.5 g/dL (1.3-4.6); Glucose 112 mg/dL (65-115); Magnesium 1.8 mg/dL (1.7-2.3); Osmolality Calculated 287 mOsm/kg (285-295); Potassium 4.9 mmol/L (3.5-5.1); Sodium 137 mmol/L (136-145); Total Bilirubin 0.2 mg/dL (0.15-1.2); Total Protein 5.7 g/dL (6.6-8.7)
[2021-05-18] MEDS: ipratropium-albuterol 3 mL Neb INHALATION (08:35)
[2021-05-18] MEDS: isosorbide mononitrate ER 30 mg Tablet PO (08:37)
[2021-05-18] MEDS: aspirin 81 mg EC Tablet PO (08:37)
[2021-05-18] MEDS: metoprolol tartrate 25 mg Tablet 37.5 MG PO (08:37)
[2021-05-18] MEDS: clopidogrel 75 mg Tablet PO (08:37)
[2021-05-18] MEDS: tamsulosin 0.4 mg Capsule 0.8 MG PO (08:38)
[2021-05-18] MEDS: enoxaparin 40 mg/0.4 mL Syringe SUBCUT (08:38)
[2021-05-18] MEDS: PHENobarbital 32.4 mg Tablet 97.2 MG PO (08:38)
[2021-05-18] MEDS: ezetimibe 10 mg Tablet PO (08:39)
--- NOTE | 2021-05-18 09:39 | XRR_ITS ---
PROCEDURE INFORMATION: Exam: XR Chest Exam date and time: 05/18/2021 9:39 AM Age: 75 years old Clinical indication: Shortness of breath; Additional info: Follow up pneumonia TECHNIQUE: Imaging protocol: XR of the chest. Views: 1 view. Total images: 1 COMPARISON: CR (CHEST, ) 05/16/2021 5:54 PM FINDINGS: Lungs: Hyperinflation with prominent interstitial markings suggesting COPD changes. Stable left pleuroparenchymal disease. Pleural spaces: No pneumothorax. Heart/Mediastinum: Heart size is stable when compared to the prior exam. Coronary stent noted. Bones/joints: Osseous structures are unchanged from the prior exam. XR/XR chest 1V portable [id number] IMPRESSION: 1. Hyperinflation with prominent interstitial markings suggesting COPD changes. 2. Stable left pleuroparenchymal disease.
--- NOTE | 2021-05-18 11:13 | P.DS_ITS ---
Discharge Providers Date of Admission: 05/16/21 20:53 Date of Discharge: May 18, 2021 Attending Provider at Admission: David Ghotra Attending Provider at Discharge: Jennifer Gaines MD Primary Care Provider: Carmelita Piper MD Diagnoses at Discharge Discharge Diagnosis (1) Acute exacerbation of chronic obstructive airways disease: Status: Resolved (2) Atrial fibrillation with RVR: Status: Resolved (3) Community acquired pneumonia: Status: Resolved (4) Smoker: Status: Acute Reason for Visit Reason for Visit: COPD EXACERBATION Hospital Course Hospital Course 75-year-old with a past medical history significant for hypertension, hyperlipidemia, seizure disorder, BPH, paroxysmal atrial fibrillation, multi vessel coronary artery disease s/p hx of PCI/DESx 2, chronic systolic heart failure with EF of 40-45%, tobacco abuse, and o2 dependent chronic obstructive pulmonary disease on 4L at baseline who presented to ER with difficulty breathing. Symptoms apparently were increasing for the past few days. Denies chest pain. Apparently was noted to have O2 saturation of 85% at home.Vital signs on arrival to emergency room showed a temperature of 96.5, heart rate of 127, blood pressure of 114/73 with oxygen saturation of 98% however this was on 6 L of O2.Laboratory workup showed a WBC of 9.5, hemoglobin of 12.6, hematocrit of 39.0 and a platelet count of 199. Arterial blood gases showed a pH of 7.43, pCO2 of 51.6, PO2 125, bicarb of 34.2.Sodium 136, potassium 4.7, chloride 95, bicarb 29, BUN 17 and creatinine of 0.5.Troponin T delta of 1.26. ProBNP of 2836. COVID-19 negative.Chest x-ray showed left lower lobe airspace disease consistent with pneumonia and small left pleural effusion. In emergency room was found to be in atrial fibrillation with rapid ventricular response. Course Patient presented with COPD exacerbation. He was placed on ceftriaxone and azithromycin. He also had A. fib on admission which resolved by the next day on his current home medication home dose. He was sent home in stable condition. He was given follow-up with cardiology and pulmonology and his primary care doctor at discharge. Physical Exam Narrative: EXAM NARRATIVE: General: Alert oriented x3, patient seen laying in bed (flat). Cachectic appearing, temporal wasting. Frail male. HEENT: Normocephalic, atraumatic, EOMI, breathing 2L NC Cardio: Irregularly irregular, no gross murmers, normal S1-S2, appears euvolemic Respiratory: Diminished b/l air entry, no gross wheezes or ronchi, reduced air entry, no crackles at bases, GI: Abdomen soft, nontender, nondistended, bowel sounds + Extremities: Pulses 2+, no edema, no cyanosis, very thin frail extremities Discharge Data Data Completed and Pending: Completed Studies During Hospitalization Category Date Time Status XR chest 1V clarence ble [id number] Urgent Exams 05/16/21 17:50 Completed XR chest 1V clarence ble [id number] Urgent Exams 05/18/21 09:39 Completed Pending at discharge Category Date Time Status Blood Culture Sta t Lab 05/16/21 19:59 Results Sputum Culture an d Gram Stain Stat Lab 05/17/21 13:00 Results CV. echo complete * [id number] Routine Ultrasound 05/17/21 11:12 Taken Labs from last 24 hours 05/18/21 05/18/21 04:10 04:10 WBC 5.2 RBC 3.48 L Hgb 11.0 L Hct 34.7 L MCV 99.7 H MCH 31.6 MCHC 31.7 RDW 13.9 Plt Count 189 MPV 9.9 Neut % (Auto) 88.3 Lymph % (Auto) 6.3 [place] % (Auto) 4.8 Eos % (Auto) 0.0 Baso % (Auto) 0.2 Neut # (Auto) 4.61 Lymph # (Auto) 0.3 L [place] # (Auto) 0.3 Eos # (Auto) 0.0 Baso # (Auto) 0.0 Nucleated RBC % (a uto) 0 Nucleated RBCs # 0.0 Sodium 137 Potassium 4.9 Chloride 99 Carbon Dioxide 30 H Anion Gap 12.9 BUN 20 Creatinine 0.5 L GFR Calculation Not Reportable Glucose 112 Calculated Osmolal ity 287 Calcium 8.1 L Magnesium 1.8 Total Bilirubin 0.2 AST 23 ALT 19 Alkaline Phosphata se 81 Total Protein 5.7 L Albumin 3.2 L Globulin 2.5 Vitals: Last Vital Signs Temp 97.8 F 05/18/21 08:00 Pulse 80 05/18/21 08:41 Resp 16 05/18/21 08:37 BP 112/60 05/18/21 08:00 Pulse Ox 93 05/18/21 08:40 Discharge Plan Discharge Patient Disposition: Home Health Service Condition: Stable Prescriptions: Continued isosorbide mononitrate 30 mg tablet extended release 24 hr 30 mg PO DAILY Qty: 30 RF: 6 phenobarbital 97.2 mg tablet 97.2 mg PO BID RF: 0 fluticasone propion-salmeterol [Wixela Inhub] 250-50 mcg/dose blister with device 1 inh INHALATION BID RF: 0 clopidogrel 75 mg tablet 75 mg PO DAILY RF: 0 simvastatin 80 mg tablet 80 mg PO BEDTIME RF: 0 hydrocodone-acetaminophen 10-325 mg tablet 1 tab PO Q6H PRN (Reason: Pain) RF: 0 tamsulosin 0.4 mg capsule 0.8 mg PO DAILY RF: 0 nitroglycerin 0.4 mg tablet, sublingual 0.4 mg sublingual Q5MIN PRN (Reason: Chest Pain) RF: 0 epinephrine 0.3 mg/0.3 mL auto-injector 0.3 mg SUBCUT ONCE PRN (Reason: Anaphylaxis) RF: 0 ezetimibe 10 mg tablet 10 mg PO DAILY RF: 0 Combivent Respimat 20-100 mcg/actuation mist 2 puff INHALATION QID RF: 0 aspirin 81 mg Tablet,Delayed Release (Dr/Ec) 81 mg PO DAILY Qty: 30 RF: 0 metoprolol tartrate 25 mg tablet 37.5 mg PO BID Qty: 80 RF: 0 felodipine 2.5 mg tablet extended release 24 hr 2.5 mg PO DAILY RF: 0 Breztri Aerosphere 160-9-4.8 mcg/actuation HFA aerosol inhaler 2 inh INHALATION BID RF: 0 Discharge Orders: Discharge Order (Routine); Ordered 05/18/21 Ordered By: Jennifer Gaines Referrals: Carmelita Piper MD [Primary Care Provider] - 4-7 days (Dr. Piper's office will be calling to schedule a hospital followup to be seen in 4 to 7 days. If you don't hear from them by Thursday, please give them a call. Thank you) Kurt Eden MD [Physician] - 06/05/21 8:15 am ([facility] will be calling to schedule a pulmonology followup with Dr. Eden to be seen in 1 week, If you byron't hear from them by Syed afternoon, please give them a call. Thank you) Chiquita Beaulieu FNP [Nurse Practitioner] - 06/05/21 9:30 am ([facility] will be calling to schedule a cardiology followup with CLAUDIO Wiseman to be seen in 2 weeks, If you byron't hear from them by Thursday, please give them a call. Thank you) Discharge Diet: Cardiac Discharge Activity: Resume usual activity and Oxygen as instructed Patient Instructions: Prednisone (By mouth), Amoxicillin/Clavulanate Potassium (By mouth) (Augmentin, Augmentin..., A-fib (Atrial Fibrillation) (DC), Using Oxygen at Home (DC), COPD (Chronic Obstructive Pulmonary Disease) (DC), Community Acquired Pneumonia (DC), Chronic Lung Disease and Infection Prevention (DC), COPD Stoplight, Opioid Safety, Pneumonia Stoplight Discharge Attestations Time Spent in Discharge Care*: less than 30 min Status at Discharge: Cognitive status at discharge: cognitively intact , Behavioral status at discharge: cooperative , Quality Metrics Clinical Quality Measures During this hospital stay, did patient experience: None Coding Level of Care Code Acute Chg FW DC note Diagnoses Acute exacerbation of chronic obstructive airways disease J44.1 Atrial fibrillation with RVR I48.91 Community acquired pneumonia J18.9 Smoker F17.200
[2021-05-18] MEDS: azithromycin 500 MG in sodium chloride 0.9% 250 ML 250 MG IV (11:19)
--- NOTE | 2021-05-18 11:59 | PC.NURSE ---
dr clayton requested that pt be given both iv antibiotics now..prior to discharge today.given as ordered.
[2021-05-18] MEDS: cefTRIAXone 1,000 MG in sodium chloride 0.9% (plus) 50 ML 100 MG IV (12:40)
--- NOTE | 2021-05-18 13:57 | PC.NURSE ---
discharge instructions given and explained.pt and spouse verb understanding of instructions.pt has his home o2 in the car.discharged via w/ to exit.spouse to drive pt home
== END 2021-05-18 14:00 | disposition home health service (06) | DRG 190 ==
LOC: ER 20:52 → CSU 21:04
PROVIDERS: Admitting Provider Hospitalist; Emergency Provider Emergency Medicine; PCP Family Medicine; Visit Provider Internal Medicine
DX: J44.1 Chronic obstructive pulmonary disease with (acute) exacerbation (principal); J18.9 Pneumonia, unspecified organism; I50.22 Chronic systolic (congestive) heart failure; J96.11 Chronic respiratory failure with hypoxia; I48.0 Paroxysmal atrial fibrillation; I11.0 Hypertensive heart disease with heart failure; E78.5 Hyperlipidemia, unspecified; G40.909 Epilepsy, unspecified, not intractable, without status epilepticus; N40.0 Benign prostatic hyperplasia without lower urinary tract symptoms; I25.10 Atherosclerotic heart disease of native coronary artery without angina pectoris; F17.200 Nicotine dependence, unspecified, uncomplicated; I71.4 Abdominal aortic aneurysm, without rupture; Z79.82 Long term (current) use of aspirin; Z79.02 Long term (current) use of antithrombotics/antiplatelets; Z95.5 Presence of coronary angioplasty implant and graft; Z99.81 Dependence on supplemental oxygen
CPT/HCPCS: 36415; 36600; 71045; 80053; 82805; 83605; 83735; 83880; 84443; 84484; 85025; 87040; 87070; 87205; 87635; 87641; 93005; 93306; 94640; 94664; 96365; 96366; 96367; 96372; 96375; 97161; 99285; J0456; J0696; J1650; J2920; J2930; J3475; J3490; J7040; J7050

== ENCOUNTER 2021-06-22 18:19 | Inpatient (IN) | payer MEDICARE, SELFPAY ==
[2021-06-22 18:30] VITALS: BP 117/68; PULSE 120; RESP 22; TEMP 37.6; O2SAT 93
--- NOTE | 2021-06-22 18:57 | XRR_ITS ---
PROCEDURE INFORMATION: Exam: XR Chest Exam date and time: 06/22/2021 6:57 PM Age: 75 years old Clinical indication: Dyspnea; Prior surgery; Surgery date: 6+ months; Surgery type: Ptca; Additional info: SOB TECHNIQUE: Imaging protocol: XR of the chest. Views: 1 view. COMPARISON: CR (CHEST, ) 05/18/2021 9:51 AM FINDINGS: Lungs: There is severe hyperinflation compatible with COPD with unchanged scattered fibrosis or scarring in the periphery of the upper lobes. There is increased density in the left lower lobe partially obscuring the left hemidiaphragm concerning for pneumonic infiltrate. Pulmonary vascularity is within normal limits. Pleural spaces: There is a small left pleural effusion. Heart/Mediastinum: The heart is enlarged. Bones/joints: No acute abnormality. XR/XR chest 1V portable [id number] IMPRESSION: There is increased density in the left lower lobe partially obscuring the left hemidiaphragm concerning for pneumonic infiltrate.
--- NOTE | 2021-06-22 18:58 | ECG_ITS ---
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[id number] Requested By: Zachariah Varela Order Number: [id number] Reading MD: SANTIAGO DE LA CRUZ Measurements Intervals [place] Rate: 132 P: UT: QRS: 255 QRSD: 129 T: 72 QT: 310 QTc: 460 Interpretive Statements ATRIAL FIBRILLATION WITH RAPID VENTRICULAR RESPONSE INDETERMINATE AXIS RIGHT BUNDLE BRANCH BLOCK [120+ ms QRS DURATION, UPRIGHT V1, 40+ ms S IN I/aVL/V4/V5/V6] LEFT POSTERIOR FASCICULAR BLOCK [QRS AXIS > 109, INFERIOR Q] Compared to ECG 05/17/2021 00:35:27 Left posterior fascicular block now present Myocardial infarct finding no longer present Electronically Signed On 06-23-2021 19:17:16 MERCURY RECOVERER by SANTIAGO DE LA CRUZ [email or web address]
[2021-06-22] MEDS: sodium chloride 0.9% 1,000 ML 999 ML IV (19:36)
[2021-06-22 19:37] VITALS: O2SAT 93
[2021-06-22 19:45] VITALS: BP 99/62; PULSE 112; RESP 20; O2SAT 91
[2021-06-22 20:02] LABS: Basophils % 0.3 %; Eosinophils # 0.1 10^3/uL (0.0-0.8); Eosinophils % 0.7 %; Hematocrit 41.1 % (42.0-52.0); Hemoglobin 13.3 g/dL (11.7-16.6); Lymphocytes # 0.6 10^3/uL (0.8-4.8); Lymphocytes % 6.2 %; Mean Corpuscular HGB Conc 32.4 g/dL (30.0-36.0); Mean Corpuscular Hemoglobin 32.8 pg (28.0-34.0); Mean Corpuscular Volume 101.2 fl (80-94); Mean Platelet Volume 9.6 fL (7.4-10.4); Monocytes # 0.6 10^3/uL (0.2-0.9); Monocytes % 6.3 %; Neutrophils # 7.83 10^3/uL (1.8-7.7); Neutrophils % 86.3 %; Nucleated Red Blood Cells % 0 %; Platelet Count 165 10^3/cmm (130-400); Red Blood Count 4.06 10^6/uL (4.1-5.3); Red Cell Distribution Width 13.6 % (12.1-15.1); White Blood Count 9.1 10^3/uL (4.0-10.0)
[2021-06-22 20:08] LABS: Erythrocyte Sedimentation Rate 14 mm/hr (0-10)
[2021-06-22 20:18] LABS: Lactate (Lactic Acid level) 1.5 mmol/L (0.5-2.2)
[2021-06-22 20:21] LABS: Troponin(5th) Baseline 44 ng/L (0-15)
[2021-06-22 20:25] LABS: SARS Covid-2 Antigen Negative (Negative)
[2021-06-22 20:29] LABS: NT Pro B Type Natriuretic Pept 2710 pg/mL (0-450); Procalcitonin 0.08 ng/mL (0-0.5)
[2021-06-22 20:40] LABS: Alanine Aminotransferase 18 U/L (0-41); Alkaline Phosphatase 114 IU/L (40-130); Aspartate Amino Transferase 21 U/L (0-40); Blood Urea Nitrogen 20 mg/dL (8-23); C Reactive Protein 12.6 mg/L (0.0-4.9); Calcium 8.9 mg/dL (8.5-10.5); Carbon Dioxide 25 mmol/L (22-29); Chloride 95 mmol/L (98-107); Creatine Phosphokinase 65 U/L (39-308); Globulin 2.2 g/dL (1.3-4.6); Glucose 84 mg/dL (65-115); Osmolality Calculated 282 mOsm/kg (285-295); Sodium 135 mmol/L (136-145); Total Bilirubin 0.3 mg/dL (0.15-1.2); Total Protein 6.2 g/dL (6.6-8.7)
[2021-06-22 20:45] LABS: Anion Gap 20.2 (5-19); Potassium 5.2 mmol/L (3.5-5.1)
[2021-06-22] MEDS: levofloxacin-dextrose 5 % 750 MG/150 ML PREMIX 100 MG IV (20:48)
--- NOTE | 2021-06-22 20:57 | W.ED.COVID ---
HPI - COVID General: Chief Complaint: COVID symptoms Stated Complaint: sob, chills Time Seen by Provider: 06/22/21 18:35 Triage information: Has fever, cough or shortness of breath. No known COVID + exposure last 14 days History of Present Illness: 75 yo male with a hx of copd and afib as well as CAD. He presents with worsening shortness of breath. He has a cough, but notes that he usually does have a cough. Sputum production has been colored. No fever. No real chest pain. Legs are not swelling. Prior covid testing: no COVID 19 common symptoms: positive cough, productive cough, dyspnea and fatigue; negative fever(s), chills, body aches, headache(s), nasal congestion, nausea or vomiting COVID 19 other sytmptoms: positive requiring more oxygen; negative chest pressure or chest pain Onset (ago): day(s) Severity: moderate Pertinent comorbid conditions: heart disease and COPD/respiratory disease COVID Results: SARS-CoV-2 Antigen (Rapid) Negative (Negative) 06/22/21 19:35 06/22/21 SARS-CoV-2 (PCR) Not detected (NOT DETECT) 05/16/21 18:16 05/16/21 Coronavirus Type 229E (PCR) Not detected (NOT DETECT) 05/16/21 18:16 05/16/21 Review of Systems Const: Reports: fatigue; Denies: fever(s), chills or body aches ENMT: Denies: nasal congestion Card: Denies: chest pain Resp: Reports: dyspnea and productive cough GI: Denies: nausea or vomiting Neuro: Denies: headache(s) PFS ED PFSH: Medical History Abdominal aortic aneurysm BPH (benign prostatic hyperplasia) CAD (coronary artery disease) COPD (chronic obstructive pulmonary disease) HLD (hyperlipidemia) New onset atrial fibrillation Seizure Surgical History History of appendectomy Presence of drug coated stent in left circumflex coronary artery S/P PTCA (percutaneous transluminal coronary angioplasty) Family History Other CAD (coronary artery disease) Cancer Social History : considering quitting Second hand smoke exposure: Yes Smoking risk assessment/counseling performed?: Yes Alcohol intake: never Lives independently: Yes Household members: spouse Housing: House Marital status: service: No Current occupational status: retired Pets and animals: No History of recent travel: No Current gender identity: Male Physical Exam Const: GENERAL APPEARANCE: cooperative, in distress, ill appearing and frail appearing HENMT: COMMON NORMALS: normocephalic, atraumatic and Normal external nose present HEAD & SCALP: normocephalic and atraumatic FACE & SINUS: normal facial exam NOSE: Normal external nose present Eye: COMMON NORMALS: Equal, round and reactive pupils present and EOMs intact bilaterally PUPIL: Yes Equal, round and reactive pupils present Chest: Breast/axilla inspection: Yes no chest deformity, asymmetry, normal contours, no nodules, masses, tenderness Resp: COMMON NORMALS: clear to auscultation bilaterally EFFORT & INSPECTION: Yes symmetric chest movement, Yes respiratory distress and Yes uses accessory muscles AUSCULTATION: clear to auscultation bilaterally and wheezes Cardio: RATE: tachycardic RHYTHM: abnormal rhythm irregularly irregular GI: COMMON NORMALS: Normal to inspection, nondistended, normoactive bowel sounds present and Soft to palpation PALPATION: Yes Soft to palpation Course Consultations: Consultation #1: fatimah Vital Signs: Vital signs: Vital Signs Temperature 99.7 F H 06/22/21 18:30 Pulse Rate 94 06/22/21 23:25 Respiratory Rate 21 H 06/22/21 23:25 Blood Pressure 101/66 06/22/21 23:25 Pulse Oximetry 95 06/22/21 23:25 [facility] - COVID Medical Decision Making 75-year-old gentleman with shortness of breath and productive cough. Left lower lobe pneumonia on chest x-ray. White blood cell count is 9. Potassium is 5. His heart rate initially was in the 130s and 140s, atrial fibrillation. This is improved after gentle fluid bolus, and diltiazem 15 mg. Heart rate is in the 90s now, atrial fibrillation. Pulse ox is reading 94% on 4 L. His D-dimer was elevated. CTA reveals left lower lobe consolidative pneumonia. He is COVID-19 negative by rapid antigen testing. He has received Levaquin for the pneumonia here. Full sepsis bolus not given, to prevent fluid overload as the patient has a coronary/heart failure history as well. This is a very frail gentleman who will not do well at home. He will be admitted for pneumonia with respiratory failure. Lab Data : 06/22/21 19:35 06/22/21 19:35 Radiology Impressions Chest X-Ray 06/22/21 18:57 IMPRESSION: There is increased density in the left lower lobe partially obscuring the left hemidiaphragm concerning for pneumonic infiltrate. Chest CTA 06/22/21 21:08 IMPRESSION: 1. No evidence for pulmonary embolus. 2. Consolidation in the left lower lobe and lingula is consistent with pneumonia versus aspiration. 3. Larger 1.3 cm irregular nodule in the right upper lobe. Stable 3.3 cm masslike consolidation in the posterior right upper lobe with multiple additional stable spiculated nodules in both lungs. Highly suspicious nodule(s). Consider non-emergent PET/CT, or tissue sampling.(Reference: Nabil) 4. Small left pleural effusion. References: Nabil Villavicencio, et al. Guidelines for Management of Incidental Pulmonary Nodules Detected on CT Images: From the Fleischner Society 2017. Radiology. 2017;284(1):228-243. COMMENTS: Consistent with the [employer]'s Incidental Findings Committee white paper (J Am Lizbet Radiol 2018): Any incidental renal lesion less than 1 cm or classified as too small to characterize, or any incidental cystic renal lesion characterized as simple-appearing, is likely benign. No follow-up imaging is recommended for these lesions per consensus recommendations based on imaging criteria. Laboratory Results WBC 9.1 10^3/uL (4.0-10.0) 06/22/21 19:35 RBC 4.06 10^6/uL (4.1-5.3) L 06/22/21 19:35 Hgb 13.3 g/dL (11.7-16.6) 06/22/21 19:35 Hct 41.1 % (42.0-52.0) L 06/22/21 19:35 MCV 101.2 fl (80-94) H 06/22/21 19:35 MCH 32.8 pg (28.0-34.0) 06/22/21 19:35 MCHC 32.4 g/dL (30.0-36.0) 06/22/21 19:35 RDW 13.6 % (12.1-15.1) 06/22/21 19:35 Plt Count 165 10^3/cmm (130-400) 06/22/21 19:35 MPV 9.6 fL (7.4-10.4) 06/22/21 19:35 Neut % (Auto) 86.3 % 06/22/21 19:35 Lymph % (Auto) 6.2 % 06/22/21 19:35 Glynn % (Auto) 6.3 % 06/22/21 19:35 Eos % (Auto) 0.7 % 06/22/21 19:35 Baso % (Auto) 0.3 % 06/22/21 19:35 Neut # (Auto) 7.83 10^3/uL (1.8-7.7) H 06/22/21 19:35 Lymph # (Auto) 0.6 10^3/uL (0.8-4.8) L 06/22/21 19:35 Glynn # (Auto) 0.6 10^3/uL (0.2-0.9) 06/22/21 19:35 Eos # (Auto) 0.1 10^3/uL (0.0-0.8) 06/22/21 19:35 Baso # (Auto) 0.0 10^3/uL (0.0-0.1) 06/22/21 19:35 Nucleated RBC % (auto) 0 % 06/22/21 19:35 Nucleated RBCs # 0.0 /100WBC 06/22/21 19:35 ESR 14 mm/hr (0-10) H 06/22/21 19:35 D-Dimer 1.80 ug/mIFEU (0-0.59) H 06/22/21 19:35 Sodium 135 mmol/L (136-145) L 06/22/21 19:35 Potassium 5.2 mmol/L (3.5-5.1) H 06/22/21 19:35 Chloride 95 mmol/L (98-107) L 06/22/21 19:35 Carbon Dioxide 25 mmol/L (22-29) 06/22/21 19:35 Anion Gap 20.2 (5-19) H 06/22/21 19:35 BUN 20 mg/dL (8-23) 06/22/21 19:35 Creatinine 0.6 mg/dL (0.7-1.2) L 06/22/21 19:35 GFR Calculation Not Reportable 06/22/21 19:35 Glucose 84 mg/dL (65-115) 06/22/21 19:35 Calculated Osmolality 282 mOsm/kg (285-295) L 06/22/21 19:35 Lactate 1.5 mmol/L (0.5-2.2) 06/22/21 19:35 Calcium 8.9 mg/dL (8.5-10.5) 06/22/21 19:35 Total Bilirubin 0.3 mg/dL (0.15-1.2) 06/22/21 19:35 AST 21 U/L (0-40) 06/22/21 19:35 ALT 18 U/L (0-41) 06/22/21 19:35 Alkaline Phosphatase 114 IU/L (40-130) 06/22/21 19:35 Creatine Kinase 65 U/L (39-308) 06/22/21 19:35 Troponin T Baseline 44 ng/L (0-15) H 06/22/21 19:35 Troponin T 120 Minute 41.84 ng/L (0-15) H 06/22/21 21:13 Delta Troponin T -2.16 ABS# (0-10) L 06/22/21 21:13 C-Reactive Protein 12.6 mg/L (0.0-4.9) H 06/22/21 19:35 NT-Pro-B Natriuret Pep 2710 pg/mL (0-450) H 06/22/21 19:35 Total Protein 6.2 g/dL (6.6-8.7) L 06/22/21 19:35 Albumin 4.0 g/dL (3.5-5.2) 06/22/21 19:35 Globulin 2.2 g/dL (1.3-4.6) 06/22/21 19:35 Procalcitonin 0.08 ng/mL (0-0.5) 06/22/21 19:35 Urine Color Yellow (Yellow) 06/22/21 21:39 Urine Appearance Clear (CLEAR) 06/22/21 21:39 Urine pH 5 (5-7) 06/22/21 21:39 Ur Specific [place] 1.015 (1.005-1.030) 06/22/21 21:39 Urine Protein Neg (Negative) 06/22/21 21:39 Urine Glucose (UA) Norm (Normal) 06/22/21 21:39 Urine Ketones Negative (Negative) 06/22/21 21:39 Urine Blood Neg (Negative) 06/22/21 21:39 Urine Nitrate Negative (Negative) 06/22/21 21:39 Urine Bilirubin Neg (Negative) 06/22/21 21:39 Urine Urobilinogen Norm mg/dL (Negative) 06/22/21 21:39 Ur Leukocyte Esterase Negative (Negative) 06/22/21 21:39 SARS-CoV-2 Ag (Rapid) Negative (Negative) 06/22/21 19:35 SARS-CoV-2 Antigen (Rapid) Negative (Negative) 06/22/21 19:35 06/22/21 SARS-CoV-2 (PCR) Not detected (NOT DETECT) 05/16/21 18:16 05/16/21 Coronavirus Type 229E (PCR) Not detected (NOT DETECT) 05/16/21 18:16 05/16/21 Critical Care Time Critical Care Time: Critical Care Time: Yes Total Critical Care Time: 35 Attestation: This case had a high probability of a clinically significant, sudden, or life threatening deterioration of this patient's condition which required my full and direct attention, intervention and personal management. This is independent of any procedures performed. Discharge Plan Discharge Patient Disposition: Admitted As Inpatient Admit Provider: Diego Avilez Clinical Impression: Left lower lobe pneumonia, Respiratory failure Condition: Stable Coding Level of Care Code ED Montessori Lead Teacher for Chg Fwd Exam Detailed
--- NOTE | 2021-06-22 21:08 | CTR_ITS ---
PROCEDURE INFORMATION: Exam: CTA Chest With Contrast Exam date and time: 06/22/2021 9:08 PM Age: 75 years old Clinical indication: Shortness of breath; Patient HX: C/O worsened SOB w elev d-dimer TECHNIQUE: Imaging protocol: Computed tomographic angiography of the chest with contrast. 3D rendering (Not supervised by radiologist): MIP and/or 3D reconstructed images were created by the technologist. Radiation optimization: All CT scans at this facility use at least one of these dose optimization techniques: automated exposure control; mA and/or kV adjustment per patient size (includes targeted exams where dose is matched to clinical indication); or iterative reconstruction. Contrast material: OMNI 350; Contrast volume: 78 ml; Contrast route: INTRAVENOUS (IV); COMPARISON: CT chest wo [facility] [id number] 11/06/2020 3:28 PM RADIATION DOSE METRICS: Total DLP (mGy-cm): 522.91 FINDINGS: Tubes, catheters and devices: Abdominal aortic endograft partially visualized. Pulmonary arteries: Normal. No pulmonary emboli. Aorta: Calcified plaque in the thoracic aorta. The ascending aorta is upper normal in diameter measuring 3.9 cm. No visible dissection. Lungs: Calcified granulomas in both lungs. Calcified mediastinal and hilar lymph nodes. Severe centrilobular emphysema. Stable irregular 3.3 cm masslike consolidation in the posterior right upper lobe. Slightly larger 1.3 cm irregular nodule in the anterior right upper lobe, series 3, image 29. Stable 6 mm nodule in the peripheral right upper lobe, image 28. Stable 8 mm spiculated nodule in the inferior right upper lobe, image 37. Scarring in the left lung apex. Stable 7 mm and 6 mm spiculated nodular densities in the left upper lobe. Patchy consolidation has developed in the left lower lobe and lobe inferior lingular segment of the left upper lobe. Pleural spaces: No pneumothorax. Small left pleural effusion. Heart: Unremarkable. No cardiomegaly. No pericardial effusion. Lymph nodes: Prominent mediastinal and hilar lymph nodes are most likely reactive. Kidneys and ureters: Left renal cysts, Hounsfield units less than 20. No follow-up imaging is recommended. Bones/joints: Unremarkable. No acute fracture. Soft tissues: Unremarkable. CT/CT angio chest PE protcl [id number] IMPRESSION: 1. No evidence for pulmonary embolus. 2. Consolidation in the left lower lobe and lingula is consistent with pneumonia versus aspiration. 3. Larger 1.3 cm irregular nodule in the right upper lobe. Stable 3.3 cm masslike consolidation in the posterior right upper lobe with multiple additional stable spiculated nodules in both lungs. Highly suspicious nodule(s). Consider non-emergent PET/CT, or tissue sampling.(Reference: Nabil) 4. Small left pleural effusion. References: Nabil Villavicencio, et al. Guidelines for Management of Incidental Pulmonary Nodules Detected on CT Images: From the Fleischner Society 2017. Radiology. 2017;284(1):228-243. COMMENTS: Consistent with the [place]'s Incidental Findings Committee white paper (J Am Lizbet Radiol 2018): Any incidental renal lesion less than 1 cm or classified as too small to characterize, or any incidental cystic renal lesion characterized as simple-appearing, is likely benign. No follow-up imaging is recommended for these lesions per consensus recommendations based on imaging criteria.
[2021-06-22 21:24] VITALS: BP 111/64; PULSE 104; RESP 19; O2SAT 92
[2021-06-22 21:50] LABS: Troponin 5 2HR 41.84 ng/L (0-15)
[2021-06-22 21:53] LABS: Troponin 5 2HR Delta -2.16 ABS# (0-10)
[2021-06-22 21:54] LABS: Add Urine Microscopic? NO; Charge for UA Resulting for Rev
[2021-06-22 21:59] LABS: Bilirubin Urine Neg (Negative); Blood Urine Neg (Negative); Glucose Urine UA Norm (Normal); Ketones Urine Negative (Negative); Leukocyte Esterase Urine Negative (Negative); Nitrate Urine Negative (Negative); Protein Urine Neg (Negative); Specific Gravity, Urine 1.015 (1.005-1.030); Urine Appearance Clear (CLEAR); Urine Color Yellow (Yellow); Urobilinogen Urine Norm (Negative); pH Urine 5 (5-7)
[2021-06-22] MEDS: iohexol 350 mg/mL 100 mL Btl IV (22:14)
[2021-06-22 23:25] VITALS: BP 101/66; PULSE 94; RESP 21; O2SAT 95
[2021-06-23] VITALS (21 sets, daily range): BP systolic 98–138; BP diastolic 53–88; PULSE 84–110; RESP 15–24; TEMP 37.1–37.3; O2SAT 93–99
--- NOTE | 2021-06-23 00:20 | PM.HP ---
Providers/Chief Complaint Admitting Physician: Diego Avilez MD Primary Care Provider: Carmelita Piper MD Chief Complaint: sob, chills History of Present Illness Geo Yip is a 75 year old male with a past medical history of hypertension, hyperlipidemia, seizure disorder, BPH, paroxysmal atrial fibrillation, multivessel CAD status post history of PCI D eluding stents x2, chronic systolic heart failure EF of 40 to 45%, current smoker, oxygen dependent COPD 4 L at baseline, no history of Covid vaccinations, no history of flu vaccinations, who presents to [facility] due to worsening shortness of breath, fatigue, malaise. He reports a chronic productive cough, but increasing coughing episodes, increasing shortness of breath progressing to shortness of breath at rest. Does report low-grade fevers, no known exposure to COVID-19, has had a recent hospitalization for pneumonia and COPD exacerbation. Review of Systems Const: Reports: fever(s), fatigue and malaise; Denies: chills Eyes: Denies: change in vision or blurry vision ENMT: Denies: nasal congestion Card: Reports: palpitations, irregular heart rhythm, dyspnea on exertion and orthopnea; Denies: chest pain Resp: Reports: dyspnea, productive cough and wheezing; Denies: non-productive cough GI: Denies: abdominal pain, nausea, vomiting, hematemesis, diarrhea, constipation, hematochezia or melena : Denies: flank pain, difficulty urinating, dysuria or urinary frequency Musc: Denies: neck pain or back pain Skin/Breast: Denies: rash Neuro: Denies: headache(s), dizziness or vertigo Endo: Denies: polyuria or polydipsia Medications/Allergies Home Medications Medication Instructions Recorded Confirmed Last Taken Type clopidogrel 75 mg tablet 75 mg PO DAILY 11/06/20 06/05/21 05/15/21 08:00 History epinephrine 0.3 mg/0.3 mL 0.3 mg SUBCUT ONCE PRN 11/06/20 06/05/21 Unknown History injection, auto-injector ezetimibe 10 mg tablet 10 mg PO DAILY 11/06/20 06/05/21 05/15/21 08:00 History fluticasone 250 mcg-salmeterol 50 1 inh INHALATION BID 11/06/20 06/05/21 05/15/21 21:00 History mcg/dose blistr powdr for inhalation (Wixela Inhub) hydrocodone 10 mg-acetaminophen 1 tab PO Q6H PRN 11/06/20 06/05/21 05/15/21 21:00 History 325 mg tablet ipratropium 20 mcg-albuterol 100 2 puff INHALATION QID 11/06/20 06/05/21 05/15/21 21:00 History mcg/actuation mist for inhalation (Combivent Respimat) nitroglycerin 0.4 mg sublingual 0.4 mg SUBLINGUAL Q5MIN PRN 11/06/20 06/05/21 Unknown History tablet phenobarbital 97.2 mg tablet 97.2 mg PO BID 11/06/20 06/05/21 05/15/21 21:00 History simvastatin 80 mg tablet 80 mg PO BEDTIME 11/06/20 06/05/21 05/15/21 21:00 History tamsulosin 0.4 mg capsule 0.8 mg PO DAILY 11/06/20 06/05/21 05/15/21 08:00 History aspirin 81 mg tablet,delayed 81 mg PO DAILY #30 tab 11/08/20 06/05/21 05/15/21 08:00 Rx release metoprolol tartrate 25 mg tablet 37.5 mg PO BID #80 tab 11/08/20 06/05/21 05/15/21 21:00 Rx budesonide 160 mcg-glycopyr 9 2 inh INHALATION BID 05/16/21 06/05/21 05/15/21 21:00 History mcg-formot 4.8 mcg/actuation HFA inhaler (Breztri Aerosphere) felodipine 2.5 mg tablet,extended 2.5 mg PO DAILY 05/16/21 06/05/21 05/15/21 08:00 History release 24 hr isosorbide mononitrate 30 mg 30 mg PO DAILY #90 tab 06/12/21 Unknown Rx tablet,extended release 24 hr Allergies Allergy/AdvReac Type Severity Reaction Status Date / Time decongestants Allergy Severe shuts down Uncoded 06/22/21 18:33 kidneys PFSH Acute PFSH: Medical History Abdominal aortic aneurysm BPH (benign prostatic hyperplasia) CAD (coronary artery disease) COPD (chronic obstructive pulmonary disease) HLD (hyperlipidemia) New onset atrial fibrillation Seizure Surgical History History of appendectomy Presence of drug coated stent in left circumflex coronary artery S/P PTCA (percutaneous transluminal coronary angioplasty) Family History Other CAD (coronary artery disease) Cancer Social History Quit status (tobacco): considering quitting Second hand smoke exposure: Yes Smoking risk assessment/counseling performed?: Yes Alcohol intake: never Lives independently: Yes Household members: spouse Housing: House Marital status: service: No Current occupational status: retired Pets and animals: No History of recent travel: No Current gender identity: Male Vitals/I&O/Wt Last Vital Signs Temp 99.7 F H 06/22/21 18:30 Pulse 94 06/22/21 23:25 Resp 21 H 06/22/21 23:25 BP 101/66 06/22/21 23:25 Pulse Ox 95 06/22/21 23:25 Physical Exam Const: COMMON NORMALS: no acute distress and patient oriented x3 GENERAL APPEARANCE: cooperative, well kempt and well developed HENMT: COMMON NORMALS: normocephalic and Normal external nose present HEAD & SCALP: normocephalic FACE & SINUS: normal facial exam NOSE: Normal external nose present MOUTH: Normal oral and palatal mucosa present Eye: COMMON NORMALS: Equal, round and reactive pupils present, EOMs intact bilaterally, conjunctivae normal and no scleral icterus CONJUNCTIVA: Yes conjunctivae normal PUPIL: Yes Equal, round and reactive pupils present Neck/C-Spine: COMMON NORMALS: full ROM, no lymphadenopathy, no meningeal signs, no JVD, Thyroid normal and No carotid bruits THYROID: Thyroid normal Lymph: LYMPHATIC: no lymphadenopathy noted Chest: COMMONS NORMALS: normal inspection of the chest Resp: COMMON NORMALS: normal respiratory effort, No retractions and No use of accessory muscles EFFORT & INSPECTION: Yes able to speak in complete sentences AUSCULTATION: crackles and wheezes Cardio: COMMON NORMALS: no JVD, S1 normal heart sound present, S2 normal heart sound present, No murmurs present (Cardio) and Peripheral pulses 2+ throughout RATE: tachycardic RHYTHM: abnormal rhythm irregularly irregular HEART SOUNDS: S1 normal heart sound present and S2 normal heart sound present PERIPHERAL PULSES: Peripheral pulses 2+ throughout GI: COMMON NORMALS: Normal to inspection, nondistended, normoactive bowel sounds present, Soft to palpation, non-tender and No hepatosplenomegaly present PALPATION: Yes Soft to palpation and Yes No hepatosplenomegaly present : COMMON NORMALS: Yes no CVA tenderness BLADDER/KIDNEY EXAM: Yes no CVA tenderness Back/Pelvis: COMMON NORMALS: no CVA tenderness Extremity: COMMON NORMALS: normal to inspection, full ROM, capillary refill normal, no calf tenderness and no pedal edema Neuro: COMMON NORMALS: patient oriented x3, CN's II-XII intact bilaterally, moves all extremities, no focal motor deficits and no sensory deficits noted MENINGEAL SIGNS: Yes no meningeal signs Psych: COMMON NORMALS: mental status grossly normal, Normal thought process present, cooperative and speech normal APPEARANCE: Yes well kempt SPEECH: Yes normal speech THOUGHT PROCESS: Normal thought process present Skin: COMMON NORMALS: turgor normal and no jaundice GENERAL SKIN EXAM: turgor normal Data : 06/22/21 19:35 06/22/21 19:35 Micro: Microbiology 06/22/21 19:25 Blood Culture - Preliminary Blood SPECIMEN COLLECTED 06/22/21 19:35 Blood Culture - Preliminary Blood SPECIMEN COLLECTED A&P Assessment and plan (1) Left lower lobe pneumonia: Status: Acute (2) Respiratory failure: Status: Acute (3) COPD (chronic obstructive pulmonary disease): Status: Acute Qualifiers: COPD type: emphysema Emphysema type: centrilobular Qualified Code(s): J43.2 - Centrilobular emphysema (4) New onset atrial fibrillation: Status: Acute (5) Multi-vessel coronary artery stenosis: Status: Acute (6) NSTEMI (non-ST elevated myocardial infarction): Status: Acute Plan Acute hypoxic respiratory failure Multifactorial from left lower lobe pneumonia, COPD exacerbation, systolic CHF Plan: -Admit to general medical floors -Given recent hospitalization for pneumonia will broaden antibiotic coverage to vancomycin, Zosyn, Levaquin -Blood cultures, urine bacterial antigens, Legionella, sputum cultures, MRSA nares -DuoNeb -Budesonide -Solu-Medrol 40 every 12 -Lasix 40 mg every 12 hours, follow creatinine, follow mag, follow potassium -Cardiac echocardiogram -Fluid restriction 1500cc -Monitor respiratory status closely -Flu, Covid pending -DNR/DNI -Lovenox for DVT prophylaxis COPD, 4 L oxygen dependent, current smoker Systolic CHF, last ejection fraction 40 to 45% CAD, status post drug-eluting stent x2 and PCI, continue aspirin, Plavix, statin coronary angiogram showed chronic total occlusion of the RCA, severe stenosis of the OM1,? mid to distal left circumflex.? Also had severe stenosis of proximal to mid LAD with a bifurcation lesion with a diagonal artery.? This was aneurysmal vessel.? Medically managed.? Revascularization was performed with RADHA x1 to the OM and RADHA x2 to the circumflex.? Medical management was decided upon for the LAD/diagonal stenosis, as it would be a high risk procedure NSTEMI -Likely from respiratory failure as above -Serial EKGs, serial troponins -Telemetry monitoring -Cardiac echo -Last echocardiogram showed an EF of 40 to 45%, mild global hypokinesis History of pulmonary nodules -Larger 1.3 cm irregular nodule in the right upper lobe.? Stable 3.3 cm masslike consolidation in the posterior right upper lobe with multiple additional stable spiculated nodules in both lungs.? Highly suspicious nodule(s). -Highly concerning for underlying malignancy given smoking history -We will need an outpatient follow-up with pulmonary Atrial fibrillation, did develop A. fib with RVR in the ER, improved with Cardizem push and fluids -Start Cardizem 30 every 6 hours -Continue metoprolol 37.5 twice daily -Telemetry monitoring Attestations Medical Necessity Statement*: Patient requires hospitalization, inpatient, greater than 2 minutes, for acute hypoxic respiratory failure, A. fib, NSTEMI, left lower lobe pneumonia, systolic CHF exacerbation Coding Level of Care Code Acute Incinerator Operator for Chg Fwd History Comprehensive Exam Comprehensive Medical Decision Making High Complexity Diagnoses Left lower lobe pneumonia J18.9 Respiratory failure J96.90 COPD (chronic obstructive pulmonary disease) J43.2 COPD type: emphysema Emphysema type: centrilobular New onset atrial fibrillation I48.91 Multi-vessel coronary artery stenosis I25.10 NSTEMI (non-ST elevated myocardial infarction) I21.4 Time Spent (min) 55
--- NOTE | 2021-06-23 00:58 | ECG_ITS ---
[facility] Test Date: 2021-06-23 Pat Name: Geo Yip Department: Room: EDIP Gender: Male Chief Digital Media Officer: : 1945 Requested By: Zachariah Varela Order Number: [id number] Sai MD: SANTIAGO DE LA CRUZ Measurements Intervals [place] Rate: 116 P: [place]: QRS: -82 QRSD: 136 T: 58 QT: 347 QTc: 483 Interpretive Statements ATRIAL FIBRILLATION WITH RAPID VENTRICULAR RESPONSE RIGHT BUNDLE BRANCH BLOCK [120+ ms QRS DURATION, UPRIGHT V1, 40+ ms S IN I/aVL/V4/V5/V6] LEFT ANTERIOR FASCICULAR BLOCK [QRS AXIS <= -45, QR IN I, RS IN II] Compared to ECG 06/22/2021 18:45:22 Left anterior fascicular block now present Indeterminate axis no longer present Left posterior fascicular block no longer present Electronically Signed On 06-23-2021 19:19:01 GEOLOGICAL SURVEY FIELD ASSISTANT by SANTIAGO DE LA CRUZ [id number]
[2021-06-23 01:41] LABS: ABG PCO2 54.6 mmHg (35-45); ABG PH Result 7.37 (7.35-7.45); Arterial Blood Gas Hematocrit 37.3 % (42-52); Base Excess ABG 4.9 mmol/L (-2.0-2.0); Blood Gas Allen Test Pos; Blood Gas LPM 3.5 %; Blood Gas Operator Identificat glc; Blood Gas Sample Site Radial, left; Blood Gas Sample Type Arterial; HCO3 ABG 31.5 mmol/L (22-26); Oxygen Device NC
--- NOTE | 2021-06-23 02:48 | USCV_ITS ---
Geo Yip Age: 75 Gender: M : 1945 Exam Date: 06/23/2021 13:20 Ordering Phys: Diego Avilez MD Technologist: Akanksha Cevallos Exam Location: [facility] Indication: Syncope BP: 119 / 70 HR: 77 Rhythm: Atrial fibrillation Technical Quality: Suboptimal MEASUREMENTS (Male / Female) Normal Values 2D ECHO RV Chamber Size 2.8 cm LVOT Diameter 2.2 cm LV Ejection Fraction MOD 2C 50.8 % LV Ejection Fraction 2C AL 54.3 % LA Width 4.2 cm LA Height 6.0 cm RA Width 3.7 cm RA Height 6.4 cm M-MODE MV E Point Septal Separation 0.6 cm DOPPLER AV Peak Velocity 80.0 cm/s LVOT Peak Velocity 86.0 cm/s AV Area Cont Eq vti 3.9 cm squared AV Area Cont Eq pk 3.9 cm squared MV Area PHT 4.1 cm squared Mitral E to A Ratio 2.9 MV E' Velocity 64.6 cm/s Mitral E to MV E' Ratio 8.6 Mitral E to LV E' Lateral Ratio 6.8 Mitral E to LV E' Septal Ratio 11.6 TR Peak Velocity 253.0 cm/s TR Peak Gradient 25.6 mmHg TV Peak E Velocity 49.0 cm/s Right Atrial Pressure 3.0 mmHg Pulmonary Artery Systolic Pressu 28.6 mmHg RV Acceleration Time 0.1 s RV Ejection Time 0.2 s RV AcT/ET 0.4 FINDINGS Left Ventricle Normal left ventricular cavity size. Normal left ventricular systolic function. No regional wall motion abnormalities. Left ventricular ejection fraction is estimated at 55 %. In the presence of atrial fibrillation diastolic function cannot be assessed accurately Right Ventricle The right ventricle is normal in size and function. Right Atrium Moderately increased right atrial size. Left Atrium Moderately increased left atrial size. Mitral Valve Mildly thickened mitral valve. No mitral valve stenosis. Moderate mitral valve regurgitation. Aortic Valve Structurally normal aortic valve without significant sclerosis or stenosis. There is no aortic regurgitation. Tricuspid Valve Severe tricuspid valve regurgitation. Pulmonic Valve Structurally normal pulmonic valve without significant stenosis. There is no pulmonic regurgitation. Pericardium Normal pericardium without effusion. Aorta Normal ascending aorta dimension. CONCLUSIONS 1-Normal left ventricular cavity size. Normal left ventricular systolic function. No regional wall motion abnormalities. Left ventricular ejection fraction is estimated at 55 %. In the presence of atrial fibrillation diastolic function cannot be assessed accurately. 2-Biatrial moderate enlargement 3-Mildly thickened mitral valve. No mitral valve stenosis. Moderate mitral valve regurgitation. 4-Severe tricuspid valve regurgitation. 5-There is no pericardial effusion. 6-Pulmonary artery systolic pressure is within normal limits. 7-Right atrial pressure is around 15 mm of mercury. 8-No significant change since the prior echocardiogram study of 05/18/2021. Shelia Centeno MD (Electronically Signed) Final Date: 23 June 2021 19:45 S
[2021-06-23 02:58] LABS: Troponin 5 6HR 48.55 ng/L (0-15)
[2021-06-23 03:05] LABS: Troponin 5 6HR Delta 4.55 ng/L (0-12)
[2021-06-23] MEDS: dilTIAZem 30 mg Tablet PO ×4 (03:27→22:54)
[2021-06-23] MEDS: enoxaparin 40 mg/0.4 mL Syringe SUBCUT (03:29)
[2021-06-23] MEDS: FUROsemide 10 mg/mL SDV 4mL 40 MG IVP (03:35)
[2021-06-23 03:36] LABS: Thyroid Stimulating Hormone 2.03 uIU/mL (0.27-4.20)
--- NOTE | 2021-06-23 04:14 | PC.PHAR ---
Pharmacokinetic dosing service Date: 06/23/21 Time: 0415 Objective: Patient: Geo Yip Floor: ED-14 Age: 75 yo Serum creatinine: 0.6 mg/dL Height: 73.0 Inches Weight (kg): 63.503 Diagnosis: Relevant medical/social history: Cultures and sensitivities: Other labs: Assessment: IBW (kg): 79.90 Dosing wt(kg): 63.503 Estimated Creatinine clearance (ml/min): 95.5 CRCL method: Cockcroft and Gault using ibw(default). Drug selected: Vancomycin Loading dose (mg): 0 Vd (liters): 57.2 (factor used: 0.9 L/kg) Ras (hr-1): 0.084 Half life (hrs): 8.25 Recommended dose: 1250 mg Interval: 12 hrs Infusion time (hrs): 1.5 Predicted peak (mcg/mL): 32.3 Predicted trough (mcg/mL): 13.37 Total body weight is being used for vancomycin dosing. Renal function is stable [ ] /unstable [ ] Recommendations: Give Vancomycin 1250 mg q 12 hrs with an expected Cpeak of 32.3 mcg/ml and an expected Ctrough of 13.37 mcg/ml Renal dosing of other antibiotics (review renal dosing of other medications and list guidelines here): Thank you for the consult, will continue to follow. Signature: Kamini Pepper [facility]
[2021-06-23 05:21] LABS: Influenza A by IFA Negative (Negative); Influenza B by IFA Negative (Negative)
[2021-06-23] MEDS: ipratropium-albuterol 3 mL Neb INHALATION ×5 (05:26→19:47)
[2021-06-23] MEDS: vancomycin 1,250 MG/250 ML PIGGYBACK 250 MG IV ×2 (05:31→19:44)
[2021-06-23 06:34] LABS: Adenovirus Not Detected (NOT DETECT); Chlamydia Pneumoniae Not Detected (NOT DETECT); Coronavirus 229E,HKU1,NL63,OC4 Not Detected (NOT DETECT); Human Metapneumovirus Not Detected (NOT DETECT); Human Rhinovirus/Enterovirus Not Detected (NOT DETECT); Influenza A Not Detected (NOT DETECT); Influenza A H1 Not Detected (NOT DETECT); Influenza A H1-2009 Not Detected (NOT DETECT); Influenza A H3 Not Detected (NOT DETECT); Influenza B Not Detected (NOT DETECT); Mycoplasma Pneumoniae Not Detected (NOT DETECT); Parainfluenza Virus Type 1 Not Detected (NOT DETECT); Parainfluenza Virus Type 2 Not Detected (NOT DETECT); Parainfluenza Virus Type 3 Not Detected (NOT DETECT); Parainfluenza Virus Type 4 Not Detected (NOT DETECT); Respiratory Syncytial Virus A Not Detected (NOT DETECT); Respiratory Syncytial Virus B Not Detected (NOT DETECT); SARS-COV-2 Not Detected (NOT DETECT)
[2021-06-23] MEDS: piperacillin-tazobactam 3.375 GM in sodium chloride 0.9% (plus) 50 ML IV ×3 (07:30→22:54)
--- NOTE | 2021-06-23 07:44 | PC.NURSE ---
ABX STARTED, PATIENT'S ROOM CLEANED AND URINALS EMPTIED.
[2021-06-23] MEDS: budesonide 0.5 mg/2 mL Neb INHALATION ×2 (08:33→19:46)
[2021-06-23] MEDS: tamsulosin 0.4 mg Capsule 0.8 MG PO (09:21)
[2021-06-23] MEDS: famotidine 20 mg Tablet PO ×2 (09:21→19:45)
[2021-06-23] MEDS: PHENobarbital 32.4 mg Tablet 97.2 MG PO ×2 (09:21→19:45)
[2021-06-23] MEDS: aspirin 81 mg EC Tablet PO (09:21)
[2021-06-23] MEDS: docusate sodium 100 mg Capsule PO ×2 (09:21→19:45)
[2021-06-23] MEDS: clopidogrel 75 mg Tablet PO (09:22)
--- NOTE | 2021-06-23 11:28 | PC.NURSE ---
PATIENT RESTING IN BED. IV STATUS CHECKED AND VISITOR AT BEDSIDE. NEITHER HAD NEEDS AT THIS TIME.
[2021-06-23] MEDS: metoprolol tartrate 25 mg Tablet 37.5 MG PO (19:48)
[2021-06-23] MEDS: atorvastatin 40 mg Tablet PO (22:54)
[2021-06-24] VITALS (12 sets, daily range): BP systolic 99–128; BP diastolic 58–73; PULSE 71–91; RESP 16–20; TEMP 36.4–37.6; O2SAT 94–98
[2021-06-24] MEDS: levofloxacin-dextrose 5 % 750 MG/150 ML PREMIX 100 MG IV (00:18)
[2021-06-24] MEDS: enoxaparin 40 mg/0.4 mL Syringe SUBCUT (03:59)
[2021-06-24] MEDS: dilTIAZem 30 mg Tablet PO ×3 (03:59→15:06)
[2021-06-24] MEDS: ipratropium-albuterol 3 mL Neb INHALATION ×4 (04:02→16:55)
[2021-06-24] MEDS: piperacillin-tazobactam 3.375 GM in sodium chloride 0.9% (plus) 50 ML IV (06:38)
[2021-06-24] MEDS: aspirin 81 mg EC Tablet PO (08:35)
[2021-06-24] MEDS: clopidogrel 75 mg Tablet PO (08:35)
[2021-06-24] MEDS: metoprolol tartrate 25 mg Tablet 37.5 MG PO (08:35)
[2021-06-24] MEDS: tamsulosin 0.4 mg Capsule 0.8 MG PO (08:35)
[2021-06-24] MEDS: famotidine 20 mg Tablet PO (08:35)
[2021-06-24] MEDS: docusate sodium 100 mg Capsule PO (08:35)
[2021-06-24] MEDS: PHENobarbital 32.4 mg Tablet 97.2 MG PO (08:35)
[2021-06-24 08:40] LABS: Eosinophils % 0.2 %; Hematocrit 42.2 % (42.0-52.0); Hemoglobin 13.5 g/dL (11.7-16.6); Lymphocytes # 0.3 10^3/uL (0.8-4.8); Lymphocytes % 5.4 %; Mean Corpuscular Hemoglobin 32.5 pg (28.0-34.0); Mean Corpuscular Volume 101.4 fl (80-94); Mean Platelet Volume 9.4 fL (7.4-10.4); Monocytes # 0.2 10^3/uL (0.2-0.9); Monocytes % 2.8 %; Neutrophils # 5.23 10^3/uL (1.8-7.7); Neutrophils % 91.3 %; Nucleated Red Blood Cells % 0 %; Platelet Count 182 10^3/cmm (130-400); Red Blood Count 4.16 10^6/uL (4.1-5.3); Red Cell Distribution Width 13.6 % (12.1-15.1); White Blood Count 5.7 10^3/uL (4.0-10.0)
[2021-06-24] MEDS: vancomycin 1,250 MG/250 ML PIGGYBACK 250 MG IV (09:05)
[2021-06-24 09:17] LABS: Alanine Aminotransferase 15 U/L (0-41); Albumin Level 3.8 g/dL (3.5-5.2); Alkaline Phosphatase 107 IU/L (40-130); Anion Gap 15.6 (5-19); Aspartate Amino Transferase 15 U/L (0-40); Blood Urea Nitrogen 19 mg/dL (8-23); C Reactive Protein 58.1 mg/L (0.0-4.9); Calcium 9.4 mg/dL (8.5-10.5); Carbon Dioxide 28 mmol/L (22-29); Chloride 100 mmol/L (98-107); Globulin 2.8 g/dL (1.3-4.6); Glucose 105 mg/dL (65-115); Magnesium 1.9 mg/dL (1.7-2.3); Osmolality Calculated 291 mOsm/kg (285-295); Phosphorus 2.8 mg/dL (2.5-4.5); Potassium 4.6 mmol/L (3.5-5.1); Sodium 139 mmol/L (136-145); Total Bilirubin 0.2 mg/dL (0.15-1.2); Total Protein 6.6 g/dL (6.6-8.7)
[2021-06-24] MEDS: budesonide 0.5 mg/2 mL Neb INHALATION (09:35)
[2021-06-24 09:51] LABS: NT Pro B Type Natriuretic Pept 2043 pg/mL (0-450); Procalcitonin 0.15 ng/mL (0-0.5)
--- NOTE | 2021-06-24 14:53 | PC.PT ---
Patient received orders for Pt evaluate and treat. I attempted this morning, he refused stating he would get up to go home. I returned to his room this afternoon and he will be going home. His spouse reported shortly after I left this morning he got out of the bed himself and was moving around the room. Evaluation was not completed
--- NOTE | 2021-06-24 15:59 | PM.DCS ---
Discharge Providers Date of Admission: 06/22/21 23:43 Date of Discharge: June 24, 2021 Attending Provider at Admission: Diego Avilez MD Attending Provider at Discharge: Roland Morales Primary Care Provider: Carmelita Piper MD Diagnoses at Discharge Discharge Diagnosis (1) Left lower lobe pneumonia: Status: Acute (2) Respiratory failure: Status: Acute (3) COPD (chronic obstructive pulmonary disease): Status: Acute Qualifiers: COPD type: emphysema Emphysema type: centrilobular Qualified Code(s): J43.2 - Centrilobular emphysema (4) New onset atrial fibrillation: Status: Acute (5) Multi-vessel coronary artery stenosis: Status: Acute (6) NSTEMI (non-ST elevated myocardial infarction): Status: Acute Reason for Visit Reason for Visit: armaan tas Hospital Course Hospital Course Pleasant 75-year-old gentleman with history of multivessel severe CAD, status post multiple stents, ischemic cardiomyopathy, HTN, HLD, current smoker, paroxysmal A. fib not on anticoagulation due to overall risk, oxygen dependent COPD 4 L at home, lung nodule for which previously declined additional evaluation, was admitted for assessment management due to worsening shortness of breath, fatigue, malaise, productive cough acute on chronic, low-grade subjective fevers. COVID-19 PCR was assessed and negative. Rapid flu negative. CT angiogram of the chest without PE. With consolidation in left lower lobe and lingula consistent with pneumonia versus aspiration. Also noted larger 1.3 cm irregular nodule in the right upper lobe. Stable 3.3 cm masslike consolidation in posterior right upper lobe with multiple additional stable spiculated nodules in both lungs. Highly suspicious nodules. Consider nonemergent PET/CT or tissue sampling. While in hospital treated with empiric antibiotic therapy with Levaquin, Zosyn, vancomycin. Received Lasix IV. Budesonide inhalations, neb treatments. Was on fluid restriction. Bacteriologic studies so far with negative blood culture from 06/22. Urine bacterial antigens negative including Legionella. Sputum culture pending, so far moderate gram-positive cocci in pairs, chains and clusters, few gram-negative rods, rare gram-positive rods. Final cultures pending. On presentation with noted troponin abnormality, 44-41.84-48.55. Chest pain-free. Was additionally assessed by echocardiogram which was unchanged significantly from April 2021. With normal EF 55%. Biatrial moderate enlargement. Moderate MVR. Severe TVR. Today he reports feeling significantly better and while. With unanticipated rapidity of improvement. Has been getting up in the room. Reports breathing is comfortable on current oxygen which is at 3 L by nasal cannula. Only thing is bothering him is arthritis in his knees. His is with him in the room. Discussed with them regarding pneumonia and completion of antibiotic course for pneumonia. We will give him also a prednisone taper due to possible severe COPD exacerbation as well with productive cough, dyspnea. Discussed with him and his regarding suspicious appearing nodules in his lungs concerning for malignancy. He right now does not want additional testing, but he is willing to discuss further with his primary provider upon resolution of pneumonia regarding additional imaging with PET scan, consideration of biopsy. Please discuss and consider also referral for stress testing upon resolution of pneumonia due to abnormality of troponin. This was likely demand ischemia, however, with known severe underlying coronary disease, cannot exclude progression of disease with continued current smoking. Please continue to encourage and assist him with smoking cessation. Physical Exam Const: COMMON NORMALS: no acute distress and patient oriented x3 NUTRITIONAL APPEARANCE: thin HENMT: COMMON NORMALS: oropharynx normal Neck/C-Spine: COMMON NORMALS: no JVD Resp: COMMON NORMALS: normal respiratory effort and clear to auscultation bilaterally AUSCULTATION: clear to auscultation bilaterally Cardio: COMMON NORMALS: no JVD, regular rhythm, S1 normal heart sound present, S2 normal heart sound present and No murmurs present (Cardio) RHYTHM: regular rhythm HEART SOUNDS: S1 normal heart sound present and S2 normal heart sound present GI: COMMON NORMALS: Normal to inspection, nondistended, normoactive bowel sounds present, Soft to palpation and non-tender PALPATION: Yes Soft to palpation Extremity: COMMON NORMALS: no joint enlargement and no pedal edema Neuro: COMMON NORMALS: patient oriented x3 and moves all extremities Skin: COMMON NORMALS: no rashes or lesions noted GENERAL SKIN EXAM: no rashes or lesions noted Discharge Data Studies Completed and Pending Completed Studies During Hospitalization Category Date Time Status CT angio chest PE protcl [id number] Urgent Cat Scan 06/22/21 21:08 Completed XR chest 1V portable [id number] Stat Exams 06/22/21 18:57 Completed CV. echo complete* [id number] Routine Ultrasound 06/23/21 02:48 Completed Pending at discharge Category Date Time Status Blood Culture Stat Lab 06/22/21 19:25 Results C Reactive Protein AM LABS Lab 06/25/21 04:00 Ordered C Reactive Protein AM LABS Lab 06/26/21 04:00 Ordered Complete Blood Count w/Auto AM LABS Lab 06/25/21 04:00 Ordered Complete Blood Count w/Auto AM LABS Lab 06/26/21 04:00 Ordered Comprehensive Metabolic Panel AM LABS Lab 06/25/21 04:00 Ordered Comprehensive Metabolic Panel AM LABS Lab 06/26/21 04:00 Ordered Magnesium AM LABS Lab 06/25/21 04:00 Ordered Magnesium AM LABS Lab 06/26/21 04:00 Ordered NT Pro B Type Natriuretic Pept QAM Lab 06/25/21 06:00 Ordered NT Pro B Type Natriuretic Pept QAM Lab 06/26/21 06:00 Ordered Phosphorus AM LABS Lab 06/25/21 04:00 Ordered Phosphorus AM LABS Lab 06/26/21 04:00 Ordered Procalcitonin AM LABS Lab 06/25/21 04:00 Ordered Procalcitonin AM LABS Lab 06/26/21 04:00 Ordered Sputum Culture and Gram Stain Stat Lab 06/23/21 07:42 Results Vancomycin Trough Timed Lab 06/24/21 19:00 Ordered Radiology Impressions Chest X-Ray 06/22/21 18:57 IMPRESSION: There is increased density in the left lower lobe partially obscuring the left hemidiaphragm concerning for pneumonic infiltrate. Chest CTA 06/22/21 21:08 IMPRESSION: 1. No evidence for pulmonary embolus. 2. Consolidation in the left lower lobe and lingula is consistent with pneumonia versus aspiration. 3. Larger 1.3 cm irregular nodule in the right upper lobe. Stable 3.3 cm masslike consolidation in the posterior right upper lobe with multiple additional stable spiculated nodules in both lungs. Highly suspicious nodule(s). Consider non-emergent PET/CT, or tissue sampling.(Reference: Nabil) 4. Small left pleural effusion. References: Nabil Villavicencio, et al. Guidelines for Management of Incidental Pulmonary Nodules Detected on CT Images: From the Fleischner Society 2017. Radiology. 2017;284(1):228-243. COMMENTS: Consistent with the [employer]'s Incidental Findings Committee white paper (J Am Lizbet Radiol 2018): Any incidental renal lesion less than 1 cm or classified as too small to characterize, or any incidental cystic renal lesion characterized as simple-appearing, is likely benign. No follow-up imaging is recommended for these lesions per consensus recommendations based on imaging criteria. Laboratory Results WBC 5.7 10^3/uL (4.0-10.0) 06/24/21 08:26 RBC 4.16 10^6/uL (4.1-5.3) 06/24/21 08:26 Hgb 13.5 g/dL (11.7-16.6) 06/24/21 08:26 Hct 42.2 % (42.0-52.0) 06/24/21 08:26 MCV 101.4 fl (80-94) H 06/24/21 08:26 MCH 32.5 pg (28.0-34.0) 06/24/21 08:26 MCHC 32.0 g/dL (30.0-36.0) 06/24/21 08:26 RDW 13.6 % (12.1-15.1) 06/24/21 08:26 Plt Count 182 10^3/cmm (130-400) 06/24/21 08:26 MPV 9.4 fL (7.4-10.4) 06/24/21 08:26 Neut % (Auto) 91.3 % 06/24/21 08:26 Lymph % (Auto) 5.4 % 06/24/21 08:26 [place] % (Auto) 2.8 % 06/24/21 08:26 Eos % (Auto) 0.2 % 06/24/21 08:26 Baso % (Auto) 0.0 % 06/24/21 08:26 Neut # (Auto) 5.23 10^3/uL (1.8-7.7) 06/24/21 08:26 Lymph # (Auto) 0.3 10^3/uL (0.8-4.8) L 06/24/21 08:26 [place] # (Auto) 0.2 10^3/uL (0.2-0.9) 06/24/21 08:26 Eos # (Auto) 0.0 10^3/uL (0.0-0.8) 06/24/21 08:26 Baso # (Auto) 0.0 10^3/uL (0.0-0.1) 06/24/21 08:26 Nucleated RBC % (auto) 0 % 06/24/21 08:26 Nucleated RBCs # 0.0 /100WBC 06/24/21 08:26 ESR 14 mm/hr (0-10) H 06/22/21 19:35 D-Dimer 1.80 ug/mIFEU (0-0.59) H 06/22/21 19:35 Specimen Type Arterial 06/23/21 01:29 Sample Site Radial, left 06/23/21 01:29 ABG pH 7.37 (7.35-7.45) 06/23/21 01:29 ABG pCO2 54.6 mmHg (35-45) H 06/23/21 01:29 ABG pO2 114.0 mmHg (80.0-100.0) H 06/23/21 01:29 ABG HCO3 31.5 mmol/L (22-26) H 06/23/21 01:29 ABG Base Excess 4.9 mmol/L (-2.0-2.0) H 06/23/21 01:29 Cam Test Pos 06/23/21 01:29 Hematocrit 37.3 % (42-52) L 06/23/21 01:29 O2 Delivery Device Nc 06/23/21 01:29 O2 Liters/Min 3.5 % 06/23/21 01:29 FiO2 34.0 % 06/23/21 01:29 Blunger Machine Operator ID glc 06/23/21 01:29 Sodium 139 mmol/L (136-145) 06/24/21 08:26 Potassium 4.6 mmol/L (3.5-5.1) 06/24/21 08:26 Chloride 100 mmol/L (98-107) 06/24/21 08:26 Carbon Dioxide 28 mmol/L (22-29) 06/24/21 08:26 Anion Gap 15.6 (5-19) 06/24/21 08:26 BUN 19 mg/dL (8-23) 06/24/21 08:26 Creatinine 0.6 mg/dL (0.7-1.2) L 06/24/21 08:26 GFR Calculation Not Reportable 06/24/21 08:26 Glucose 105 mg/dL (65-115) 06/24/21 08:26 Calculated Osmolality 291 mOsm/kg (285-295) 06/24/21 08:26 Lactate 1.5 mmol/L (0.5-2.2) 06/22/21 19:35 Calcium 9.4 mg/dL (8.5-10.5) 06/24/21 08:26 Phosphorus 2.8 mg/dL (2.5-4.5) 06/24/21 08:26 Magnesium 1.9 mg/dL (1.7-2.3) 06/24/21 08:26 Total Bilirubin 0.2 mg/dL (0.15-1.2) 06/24/21 08:26 AST 15 U/L (0-40) 06/24/21 08:26 ALT 15 U/L (0-41) 06/24/21 08:26 Alkaline Phosphatase 107 IU/L (40-130) 06/24/21 08:26 Creatine Kinase 65 U/L (39-308) 06/22/21 19:35 Troponin T Baseline 44 ng/L (0-15) H 06/22/21 19:35 Troponin T 120 Minute 41.84 ng/L (0-15) H 06/22/21 21:13 Delta Troponin T -2.16 ABS# (0-10) L 06/22/21 21:13 Troponin T Hi Sens 6Hr 48.55 ng/L (0-15) H 06/23/21 02:06 Troponin T Hi Sens 6Hr Delta 4.55 ng/L (0-12) 06/23/21 02:06 C-Reactive Protein 58.1 mg/L (0.0-4.9) H 06/24/21 08:26 NT-Pro-B Natriuret Pep 2043 pg/mL (0-450) H 06/24/21 08:26 Total Protein 6.6 g/dL (6.6-8.7) 06/24/21 08:26 Albumin 3.8 g/dL (3.5-5.2) 06/24/21 08:26 Globulin 2.8 g/dL (1.3-4.6) 06/24/21 08:26 Procalcitonin 0.15 ng/mL (0-0.5) 06/24/21 08:26 TSH 2.03 uIU/mL (0.27-4.20) 06/22/21 21:13 Urine Color Yellow (Yellow) 06/22/21 21:39 Urine Appearance Clear (CLEAR) 06/22/21 21:39 Urine pH 5 (5-7) 06/22/21 21:39 Ur Specific [place] 1.015 (1.005-1.030) 06/22/21 21:39 Urine Protein Neg (Negative) 06/22/21 21:39 Urine Glucose (UA) Norm (Normal) 06/22/21 21:39 Urine Ketones Negative (Negative) 06/22/21 21:39 Urine Blood Neg (Negative) 06/22/21 21:39 Urine Nitrate Negative (Negative) 06/22/21 21:39 Urine Bilirubin Neg (Negative) 06/22/21 21:39 Urine Urobilinogen Norm mg/dL (Negative) 06/22/21 21:39 Ur Leukocyte Esterase Negative (Negative) 06/22/21 21:39 Coronavirus 229E (PCR) Not detected (NOT DETECT) 06/23/21 03:04 Influenza Type A Ag Negative (Negative) 06/23/21 03:04 Influenza Type B Ag Negative (Negative) 06/23/21 03:04 SARS-CoV-2 (PCR) Not detected (NOT DETECT) 06/23/21 03:04 SARS-CoV-2 Ag (Rapid) Negative (Negative) 06/22/21 19:35 Vitals Last Vital Signs Temp 99.6 F 06/24/21 12:00 Pulse 72 06/24/21 12:00 Resp 16 06/24/21 09:41 BP 99/58 06/24/21 12:00 Pulse Ox 94 06/24/21 12:00 Discharge Plan Discharge Patient Disposition: Home Condition: Stable Prescriptions: New levofloxacin 750 mg tablet 750 mg PO DAILY 6 Days Qty: 6 0RF diltiazem HCl 60 mg capsule,extended release 12 hr 60 mg PO BID Qty: 180 0RF prednisone 10 mg tablet 10 mg PO DAILY Qty: 20 0RF Rx Instructions: 3 tab daily for 3 days, then 2 tab for 3 days, then 1 tab for 3 days, then 1/2 tab for 3 days. Continued phenobarbital 97.2 mg tablet See Rx Instructions .ROUTE .COMPLEX 0RF Rx Instructions: 97.2 mg orally IN THE MORNING / 48.6 MG (1/2TAB) ORALLY IN THE EVENING fluticasone propion-salmeterol [Wixela Inhub] 250-50 mcg/dose blister with device 1 inh INHALATION BID 0RF clopidogrel 75 mg tablet 75 mg PO DAILY 0RF simvastatin 80 mg tablet 80 mg PO BEDTIME 0RF hydrocodone-acetaminophen 10-325 mg tablet 1 tab PO Q6H PRN (Reason: Pain) 0RF tamsulosin 0.4 mg capsule 0.8 mg PO DAILY 0RF nitroglycerin 0.4 mg tablet, sublingual 0.4 mg sublingual Q5MIN PRN (Reason: Chest Pain) 0RF epinephrine 0.3 mg/0.3 mL auto-injector 0.3 mg SUBCUT ONCE PRN (Reason: Anaphylaxis) 0RF ezetimibe 10 mg tablet 10 mg PO DAILY 0RF Combivent Respimat 20-100 mcg/actuation mist 2 puff INHALATION QID 0RF aspirin 81 mg Tablet,Delayed Release (Dr/Ec) 81 mg PO DAILY Qty: 30 0RF metoprolol tartrate 25 mg tablet 37.5 mg PO BID Qty: 80 0RF ipratropium-albuterol 0.5 mg-3 mg(2.5 mg base)/3 mL solution for nebulization 3 ml INHALATION QID PRN (Reason: Shortness Of Breath) 0RF Held isosorbide mononitrate 30 mg tablet extended release 24 hr 30 mg PO DAILY Qty: 90 3RF Hold Instructions: Resume on 07/01/21. Discharge Orders: Discharge Order (Routine); Ordered 06/24/21 Ordered By: Roland Morales Referrals: Carmelita Piper MD [Primary Care Provider] - 4-7 days Chiquita Beaulieu FNP [Nurse Practitioner] - 2 weeks Discharge Diet: Regular Discharge Activity: Increase activity as tolerated and Oxygen as instructed Patient Instructions: Prednisone (By mouth), Levofloxacin (By mouth), Mitral Regurgitation (GEN), How to Stop Smoking (GEN), Cigarette Smoking and Your Health (GEN), Using Oxygen at Home (GEN), Bacterial Pneumonia (GEN), Pulmonary Nodules (GEN), Hypoxia (GEN), Opioid Safety Activity Restrictions/Additional Instructions: Please complete antibiotic course for pneumonia. Please continue oxygen at home, please never smoke anywhere near oxygen due to severe fire hazard. Target oxygen saturation 92%. Please stop smoking as smoking is a continued risk factor for worsening lung disease, heart attack in the setting of known severe coronary artery disease, stroke, various types of cancer and other complications. Follow-up with your primary doctor to reassess for resolution of pneumonia. Discussed also regarding lung nodules which are suspicious for possible malignancy. Please discuss referral for additional valuation by PET scan as discussed, possible biopsy. Discussed also regarding noted moderate mitral regurgitation on echocardiogram. Discussed consideration of referral for stress testing once he recovers from pneumonia given abnormal troponin seen while in the hospital and known severe coronary artery disease. Please follow-up with cardiology in office. Continue cardiac medications, except hold Imdur for now due to soft blood pressure. Recheck blood pressures twice daily, if blood pressure is rising above 110/70, resume Imdur. Discharge Attestations Time Spent in Discharge Care*: greater than 30 min Status at Discharge: Cognitive status at discharge: cognitively intact, Behavioral status at discharge: cooperative, Quality Metrics Clinical Quality Measures [ Acute Myocardial Infaction { Clinical Trial Participant: Not a clinical trial participant; Contraindication to aspirin: None; Aspirin prescribed; Contraindication to statin: None; Statin prescribed;}] Coding Level of Care Code Acute g FW DC note Diagnoses Left lower lobe pneumonia J18.9 Respiratory failure J96.90 COPD (chronic obstructive pulmonary disease) J43.2 COPD type: emphysema Emphysema type: centrilobular New onset atrial fibrillation I48.91 Multi-vessel coronary artery stenosis I25.10 NSTEMI (non-ST elevated myocardial infarction) I21.4
--- NOTE | 2021-06-24 16:22 | PC.OT ---
Addendum entered by Agnes Menard OT 06/24/21 16:24: THIS NOTE ENTERED INCORRECTLY; WRONG PATIENT. Original Note: OT TREATMENT HELD DUE TO SCHEDULED PATIENT DISCHARGE TODAY
--- NOTE | 2021-06-24 17:56 | PC.NURSE ---
IV's removed intact. Patient tolerated well. Patient is A&Ox3. Respirations even and non-labored on 3 liters NC. Reviewed patient discharge with patient and at this time. Patient and verbalized understanding of follow up appointments and medications. Patient Wheel chaired to private car.
== END 2021-06-24 17:20 | disposition home or self-care (01) | DRG 193 ==
LOC: ER 06-23 00:03 → ER IP 06-23 00:05 → MEDSURG 06-23 16:23
PROVIDERS: Admitting Provider Family Medicine; Emergency Provider Emergency Medicine; PCP Family Medicine; Visit Provider Internal Medicine
DX: J18.9 Pneumonia, unspecified organism (principal); I21.A1 Myocardial infarction type 2; J96.01 Acute respiratory failure with hypoxia; I50.22 Chronic systolic (congestive) heart failure; J43.2 Centrilobular emphysema; I48.0 Paroxysmal atrial fibrillation; I25.10 Atherosclerotic heart disease of native coronary artery without angina pectoris; Z95.5 Presence of coronary angioplasty implant and graft; I71.4 Abdominal aortic aneurysm, without rupture; N40.0 Benign prostatic hyperplasia without lower urinary tract symptoms; E78.5 Hyperlipidemia, unspecified; F17.210 Nicotine dependence, cigarettes, uncomplicated; G40.909 Epilepsy, unspecified, not intractable, without status epilepticus; I11.0 Hypertensive heart disease with heart failure; Z99.81 Dependence on supplemental oxygen; Z66 Do not resuscitate; R91.8 Other nonspecific abnormal finding of lung field; Z79.82 Long term (current) use of aspirin; Z79.02 Long term (current) use of antithrombotics/antiplatelets; I25.5 Ischemic cardiomyopathy
CPT/HCPCS: 36415; 36600; 71045; 71275; 80053; 81003; 82550; 82803; 83605; 83735; 83880; 84100; 84145; 84443; 84484; 85025; 85378; 85651; 86140; 86403; 87040; 87070; 87205; 87426; 87449; 87635; 87804; 92523; 92610; 93005; 93306; 94640; 96365; 96366; 96367; 96372; 96375; 97165; 99291; J1650; J1940; J1956; J2543; J2920; J3370; J3490; J7030; J7626; Q9967

== ENCOUNTER 2021-10-18 21:09 | Emergency (ER) | payer MEDICARE, SELFPAY ==
[2021-10-18] VITALS (8 sets, daily range): BP systolic 105–126; BP diastolic 59–86; PULSE 73–81; RESP 14–22; TEMP 36.9; O2SAT 86–100; BMI 17.8
--- NOTE | 2021-10-18 21:13 | XRR_ITS ---
PROCEDURE INFORMATION: Exam: XR Chest Exam date and time: 10/18/2021 9:40 PM Age: 75 years old Clinical indication: Chest pressure; Prior surgery; Surgery type: Coronary stent; Patient HX: C/O chest pain since early afternoon. History of copd and rul nodule. TECHNIQUE: Imaging protocol: XR of the chest. Views: 1 view. COMPARISON: CR XR chest 1V portable [id number] 06/22/2021 7:26 PM FINDINGS: Lungs: Emphysematous hyperinflated lungs. No consolidation. Pleural spaces: Unremarkable. No pleural effusion. No pneumothorax. Heart/Mediastinum: Stable mild cardiomegaly. Bones/joints: Unremarkable. XR/XR chest 1V portable [id number] IMPRESSION: Stable exam, no acute findings.
--- NOTE | 2021-10-18 21:14 | ECG_ITS ---
[facility] Test Date: 2021-10-18 Pat Name: Geo Yip Department: Room: Gender: Male [employer] Sk[employer]: : 1945 Requested By: Tenzin García Order Number: [id number] Sai MD: Sabrina Wilkins M.D. Measurements Intervals [place] Rate: 72 P: [place]: QRS: -77 QRSD: 144 T: 63 QT: 398 QTc: 437 Interpretive Statements ATRIAL FIBRILLATION INDETERMINATE AXIS RIGHT BUNDLE BRANCH BLOCK [120+ ms QRS DURATION, UPRIGHT V1, 40+ ms S IN I/aVL/V4/V5/V6] LEFT ANTERIOR FASCICULAR BLOCK [QRS AXIS <= -45, QR IN I, RS IN II] Compared to ECG 06/23/2021 08:03:02 Indeterminate axis now present Electronically Signed On 10-18-2021 22:10:05 CDT by Sabrina Wilkins M.D. [id number]
--- NOTE | 2021-10-18 21:32 | ED_ITS ---
Documented by User: Tenzin García MD 10/18/21 22:13 HPI - General Adult General: Chief complaint: Chest Pain Stated complaint: CP Time Seen by Provider: 10/18/21 21:21 History of Present Illness: Patient is a 75-year-old male with history of COPD on 3L [place] oxygen, atrial fibrillation, CAD with stent x3 presenting to the emergency room for evaluation of change onset of chest pain worsening dyspnea since 3:00. Patient to the he has been trying to use his albuterol inhaler without improvement symptom. Patient denies any fever/chills, cough runny nose sore throat, exertional chest pain, pleuritic chest pain, abdominal complaints or complaints. Onset:3pm Duration:ongoing Location:home Severity:moderate Associated symptoms: Reports chest pain and dyspnea; Deny nausea, rash, palpitations or vomiting Review of Systems Const: Denies: fever(s) or chills Eyes: Denies: change in vision ENMT: Denies: mouth pain Card: Reports: chest pain; Denies: palpitations Resp: Reports: dyspnea and other (+wheezing); Denies: non-productive cough GI: Denies: abdominal pain, nausea, vomiting or diarrhea : Denies: dysuria Musc: Denies: extremity pain Skin/Breast: Denies: rash or new lesions Neuro: Denies: weakness in extremities Psych: Reports: other (Normal mood) Adama/Lymph: Denies: easy bruising PFSH ED PFSH: Medical History Abdominal aortic aneurysm BPH (benign prostatic hyperplasia) CAD (coronary artery disease) COPD (chronic obstructive pulmonary disease) HLD (hyperlipidemia) New onset atrial fibrillation NSTEMI (non-ST elevated myocardial infarction) Respiratory failure Seizure Surgical History History of appendectomy Presence of drug coated stent in left circumflex coronary artery S/P PTCA (percutaneous transluminal coronary angioplasty) Family History Other CAD (coronary artery disease) Cancer Social History Quit status (tobacco): considering quitting Second hand smoke exposure: Yes Smoking risk assessment/counseling performed?: Yes Alcohol intake: never Lives independently: Yes Household members: spouse Housing: House Marital status: service: No Current occupational status: retired Pets and animals: No History of recent travel: No Current gender identity: Male Physical Exam Const: COMMON NORMALS: alert HENMT: COMMON NORMALS: atraumatic HEAD & SCALP: atraumatic MOUTH: moist mucous membranes not abnormal Eye: COMMON NORMALS: EOMs intact bilaterally and conjunctivae normal CONJUNCTIVA: Yes conjunctivae normal Neck/C-Spine: COMMON NORMALS: full ROM and supple Resp: OTHER: + Mild accessory muscle use, decreased breath sounds bilaterally, mild expiratory wheezes Cardio: OTHER: 2+ radial pulses b/l +irregular irregular rhythm GI: COMMON NORMALS: Soft to palpation and non-tender PALPATION: Yes Soft to palpation Extremity: COMMON NORMALS: full ROM Neuro: SENSORIUM/ORIENTATION: Yes alert MOTOR EXAM: No Abnormal motor strength present and Other motor observations present (no focal motor deficits) Psych: COMMON NORMALS: speech normal SPEECH: Yes normal speech MOOD & AFFECT: Yes euthymic mood Course Vital Signs: Vital signs: Vital Signs Temperature 98.5 F 10/18/21 21:15 Pulse Rate 106 H 10/19/21 03:04 Respiratory Rate 22 H 10/19/21 03:04 Blood Pressure 112/62 10/19/21 03:04 Pulse Oximetry 98 10/19/21 03:04 [facility] - General Adult Medical Decision Making 75-year-old male with a history of COPD on 3 L oxygen, atrial fibrillation, CAD with multiple stents presenting to the emergency room with complaints of chest pain and dyspnea. On physical exam, patient is noted be satting 94% on 4 L oxygen. Patient is noted to have tight breath sounds bilaterally with mild expiratory wheezing and increased work of breathing. Patient received DuoNeb and Solu-Medrol in the emergency room for mild improvement in dyspnea. EKG is nonischemic currently. Work-up showed a white count of 5.4. Rest of lab within normal limit. Patient requires further breathing treatments. Disposition: admission Lab Data : 10/18/21 21:45 10/18/21 21:45 Radiology Impressions Chest X-Ray 10/18/21 21:13 IMPRESSION: Stable exam, no acute findings. Laboratory Results WBC 5.4 10^3/uL (4.0-10.0) 10/18/21 21:45 RBC 3.77 10^6/uL (4.1-5.3) L 10/18/21 21:45 Hgb 12.1 g/dL (11.7-16.6) 10/18/21 21:45 Hct 38.8 % (42.0-52.0) L 10/18/21 21:45 MCV 102.9 fl (80-94) H 10/18/21 21:45 MCH 32.1 pg (28.0-34.0) 10/18/21 21:45 MCHC 31.2 g/dL (30.0-36.0) 10/18/21 21:45 RDW 13.4 % (12.1-15.1) 10/18/21 21:45 Plt Count 147 10^3/cmm (130-400) 10/18/21 21:45 MPV 10.0 fL (7.4-10.4) 10/18/21 21:45 Neut % (Auto) 76.7 % 10/18/21 21:45 Lymph % (Auto) 10.6 % 10/18/21 21:45 [place] % (Auto) 9.8 % 10/18/21 21:45 Eos % (Auto) 1.9 % 10/18/21 21:45 Baso % (Auto) 0.6 % 10/18/21 21:45 Neut # (Auto) 4.15 10^3/uL (1.8-7.7) 10/18/21 21:45 Lymph # (Auto) 0.6 10^3/uL (0.8-4.8) L 10/18/21 21:45 [place] # (Auto) 0.5 10^3/uL (0.2-0.9) 10/18/21 21:45 Eos # (Auto) 0.1 10^3/uL (0.0-0.8) 10/18/21 21:45 Baso # (Auto) 0.0 10^3/uL (0.0-0.1) 10/18/21 21:45 Nucleated RBC % (auto) 0 % 10/18/21 21:45 Nucleated RBCs # 0.0 /100WBC 10/18/21 21:45 Sodium 137 mmol/L (136-145) 10/18/21 21:45 Potassium 4.4 mmol/L (3.5-5.1) 10/18/21 21:45 Chloride 94 mmol/L (98-107) L 10/18/21 21:45 Carbon Dioxide 35 mmol/L (22-29) H 10/18/21 21:45 Anion Gap 12.4 (5-19) 10/18/21 21:45 BUN 14 mg/dL (8-23) 10/18/21 21:45 Creatinine 0.4 mg/dL (0.7-1.2) L 10/18/21 21:45 GFR Calculation Not Reportable 10/18/21 21:45 Glucose 81 mg/dL (65-115) 10/18/21 21:45 Calculated Osmolality 284 mOsm/kg (285-295) L 10/18/21 21:45 Calcium 8.6 mg/dL (8.5-10.5) 10/18/21 21:45 Troponin T Baseline 37 ng/L (0-15) H 10/18/21 21:45 Troponin T 120 Minute 38.13 ng/L (0-15) H 10/18/21 23:40 Delta Troponin T 1.13 ABS# (0-10) 10/18/21 23:40 Imaging Data Other Imaging: Radiologist's impression: [facility] [address] XRay Report Signed Patient: Geo Yip Unit #: [id number] : 1945 Age/Sex: 75 / M ADM Date: 10/18/21 Loc: ER Room/Bed: Attending Dr: Ordering Provider/Ordering MD: Tenzin García MD Date of Service: 10/18/21 Procedure(s): XR chest 1V portable [id number] Accession Number(s): [id number] Report Number: [id number] PROCEDURE INFORMATION: Exam: XR Chest Exam date and time: 10/18/2021 9:40 PM Age: 75 years old Clinical indication: Chest pressure; Prior surgery; Surgery type: Coronary stent; Patient HX: C/O chest pain since early afternoon. History of copd and rul nodule. TECHNIQUE: Imaging protocol: XR of the chest. Views: 1 view. COMPARISON: CR XR chest 1V portable [id number] 06/22/2021 7:26 PM FINDINGS: Lungs: Emphysematous hyperinflated lungs. No consolidation. Pleural spaces: Unremarkable. No pleural effusion. No pneumothorax. Heart/Mediastinum: Stable mild cardiomegaly. Bones/joints: Unremarkable. XR/XR chest 1V portable [id number] IMPRESSION: Stable exam, no acute findings. ? Dictated By: Wellington Forde DO Signed By: Wellington Forde DO Signed Date/Time: 10/18/212209 DD/ 39 Discharge Plan Discharge Patient Disposition: Home Clinical Impression: Acute exacerbation of chronic obstructive pulmonary disease (COPD), Chest pain, Hypoxemia Condition: Stable Prescriptions: New prednisone 10 mg tablet See Rx Instructions .ROUTE .COMPLEX Qty: 30 0RF Rx Instructions: 4 po [id number], then 3 po [id number], then 2 po [id number], then 1po [id number] Discontinued prednisone 10 mg tablet 10 mg PO DAILY Qty: 20 0RF Rx Instructions: 3 tab daily for 3 days, then 2 tab for 3 days, then 1 tab for 3 days, then 1/2 tab for 3 days. No Action isosorbide mononitrate 30 mg tablet extended release 24 hr 30 mg PO DAILY Qty: 90 3RF Hold Instructions: Resume on 07/01/21. phenobarbital 97.2 mg tablet See Rx Instructions .ROUTE .COMPLEX 0RF Rx Instructions: 97.2 mg orally IN THE MORNING / 48.6 MG (1/2TAB) ORALLY IN THE EVENING fluticasone propion-salmeterol [Wixela Inhub] 250-50 mcg/dose blister with device 1 inh INHALATION BID 0RF clopidogrel 75 mg tablet 75 mg PO DAILY 0RF simvastatin 80 mg tablet 80 mg PO BEDTIME 0RF hydrocodone-acetaminophen 10-325 mg tablet 1 tab PO Q6H PRN (Reason: Pain) 0RF tamsulosin 0.4 mg capsule 0.8 mg PO DAILY 0RF nitroglycerin 0.4 mg tablet, sublingual 0.4 mg sublingual Q5MIN PRN (Reason: Chest Pain) 0RF epinephrine 0.3 mg/0.3 mL auto-injector 0.3 mg SUBCUT ONCE PRN (Reason: Anaphylaxis) 0RF ezetimibe 10 mg tablet 10 mg PO DAILY 0RF Combivent Respimat 20-100 mcg/actuation mist 2 puff INHALATION QID 0RF aspirin 81 mg Tablet,Delayed Release (Dr/Ec) 81 mg PO DAILY Qty: 30 0RF metoprolol tartrate 25 mg tablet 37.5 mg PO BID Qty: 80 0RF ipratropium-albuterol 0.5 mg-3 mg(2.5 mg base)/3 mL solution for nebulization 3 ml INHALATION QID PRN (Reason: Shortness Of Breath) 0RF diltiazem HCl 60 mg capsule,extended release 12 hr 60 mg PO BID Qty: 180 0RF Discharge Orders: Discharge ED (Routine); Ordered 10/19/21 Ordered By: Zachariah Johnson Referrals: Carmelita Piper MD [Primary Care Provider] - 1-3 days Discharge Diet: Advance as tolerated Discharge Activity: Increase activity as tolerated Patient Instructions: Chest Pain (ED), COPD (Chronic Obstructive Pulmonary Disease) (ED) Activity Restrictions/Additional Instructions: Use your nebulizer machine every 4 hours while awake for the next 48 hours, then as needed. Medication as directed. Return immediately to the emergency room for any return of your chest pain, worsening shortness of breath, fever greater than 100, any other concerning symptoms. Coding Level of Care Code ED [employer] Practitioner for Chg Fwd Exam Comprehensive Documented by User: Zachariah Johnson DO 10/19/21 03:27 HPI - General Adult General: Chief complaint: Chest Pain Stated complaint: CP Time Seen by Provider: 10/18/21 21:21 [facility] ED PFSH: Medical History Abdominal aortic aneurysm BPH (benign prostatic hyperplasia) CAD (coronary artery disease) COPD (chronic obstructive pulmonary disease) HLD (hyperlipidemia) New onset atrial fibrillation NSTEMI (non-ST elevated myocardial infarction) Respiratory failure Seizure Surgical History History of appendectomy Presence of drug coated stent in left circumflex coronary artery S/P PTCA (percutaneous transluminal coronary angioplasty) Family History Other CAD (coronary artery disease) Cancer Social History Quit status (tobacco): considering quitting Second hand smoke exposure: Yes Smoking risk assessment/counseling performed?: Yes Alcohol intake: never Lives independently: Yes Household members: spouse Housing: House Marital status: service: No Current occupational status: retired Pets and animals: No History of recent travel: No Current gender identity: Male Course Vital Signs: Vital signs: Vital Signs Temperature 98.5 F 10/18/21 21:15 Pulse Rate 106 H 10/19/21 03:04 Respiratory Rate 22 H 10/19/21 03:04 Blood Pressure 112/62 10/19/21 03:04 Pulse Oximetry 98 10/19/21 03:04 [facility] - General Adult Medical Decision Making 75-year-old male with a history of COPD on 3 L oxygen, atrial fibrillation, CAD with multiple stents presenting to the emergency room with complaints of chest pain and dyspnea. On physical exam, patient is noted be satting 94% on 4 L oxygen. Patient is noted to have tight breath sounds bilaterally with mild expiratory wheezing and increased work of breathing. Patient received DuoNeb and Solu-Medrol in the emergency room for mild improvement in dyspnea. EKG is nonischemic currently. Work-up showed a white count of 5.4. Rest of lab within normal limit. Patient requires further breathing treatments. Disposition: admission 75-year-old gentleman received in checkout from the previous physician at shift change. This gentleman has a history of COPD and coronary disease. He had chest discomfort last afternoon. His chest discomfort is resolved at this point. He was also complaining of some shortness of breath. He has had 2 sets of 3 [id number] nebs. Current saturations are 99% on his home setting of 4 L of oxygen. His heart rate is 100. Blood pressure 107/55. His delta troponin at 2 hours is only 1. On reexam, the patient feels his breathing is essentially baseline. His chest pain remains resolved. He has eaten here, and done well with that. His chest x-ray is negative. With resolution of chest discomfort, improvement in his breathing, the patient was counseled on admission versus disposition. He would like to go home if possible. He requires 3 to 4 L of oxygen 15/12. His did not bring his oxygen with him. On shared decision making, the patient would like to go home, with the stipulation of returning for any return of chest discomfort, or worsening shortness of breath. He will be treated for COPD exacerbation. Lab Data : 10/18/21 21:45 10/18/21 21:45 Radiology Impressions Chest X-Ray 10/18/21 21:13 IMPRESSION: Stable exam, no acute findings. Laboratory Results WBC 5.4 10^3/uL (4.0-10.0) 10/18/21 21:45 RBC 3.77 10^6/uL (4.1-5.3) L 10/18/21 21:45 Hgb 12.1 g/dL (11.7-16.6) 10/18/21 21:45 Hct 38.8 % (42.0-52.0) L 10/18/21 21:45 MCV 102.9 fl (80-94) H 10/18/21 21:45 MCH 32.1 pg (28.0-34.0) 10/18/21 21:45 MCHC 31.2 g/dL (30.0-36.0) 10/18/21 21:45 RDW 13.4 % (12.1-15.1) 10/18/21 21:45 Plt Count 147 10^3/cmm (130-400) 10/18/21 21:45 MPV 10.0 fL (7.4-10.4) 10/18/21 21:45 Neut % (Auto) 76.7 % 10/18/21 21:45 Lymph % (Auto) 10.6 % 10/18/21 21:45 [place] % (Auto) 9.8 % 10/18/21 21:45 Eos % (Auto) 1.9 % 10/18/21 21:45 Baso % (Auto) 0.6 % 10/18/21 21:45 Neut # (Auto) 4.15 10^3/uL (1.8-7.7) 10/18/21 21:45 Lymph # (Auto) 0.6 10^3/uL (0.8-4.8) L 10/18/21 21:45 [place] # (Auto) 0.5 10^3/uL (0.2-0.9) 10/18/21 21:45 Eos # (Auto) 0.1 10^3/uL (0.0-0.8) 10/18/21 21:45 Baso # (Auto) 0.0 10^3/uL (0.0-0.1) 10/18/21 21:45 Nucleated RBC % (auto) 0 % 10/18/21 21:45 Nucleated RBCs # 0.0 /100WBC 10/18/21 21:45 Sodium 137 mmol/L (136-145) 10/18/21 21:45 Potassium 4.4 mmol/L (3.5-5.1) 10/18/21 21:45 Chloride 94 mmol/L (98-107) L 10/18/21 21:45 Carbon Dioxide 35 mmol/L (22-29) H 10/18/21 21:45 Anion Gap 12.4 (5-19) 10/18/21 21:45 BUN 14 mg/dL (8-23) 10/18/21 21:45 Creatinine 0.4 mg/dL (0.7-1.2) L 10/18/21 21:45 GFR Calculation Not Reportable 10/18/21 21:45 Glucose 81 mg/dL (65-115) 10/18/21 21:45 Calculated Osmolality 284 mOsm/kg (285-295) L 10/18/21 21:45 Calcium 8.6 mg/dL (8.5-10.5) 10/18/21 21:45 Troponin T Baseline 37 ng/L (0-15) H 10/18/21 21:45 Troponin T 120 Minute 38.13 ng/L (0-15) H 10/18/21 23:40 Delta Troponin T 1.13 ABS# (0-10) 10/18/21 23:40 Discharge Plan Discharge Patient Disposition: Home Clinical Impression: Acute exacerbation of chronic obstructive pulmonary disease (COPD), Chest pain, Hypoxemia Condition: Stable Prescriptions: New prednisone 10 mg tablet See Rx Instructions .ROUTE .COMPLEX Qty: 30 0RF Rx Instructions: 4 po [id number], then 3 po [id number], then 2 po [id number], then 1po [id number] Discontinued prednisone 10 mg tablet 10 mg PO DAILY Qty: 20 0RF Rx Instructions: 3 tab daily for 3 days, then 2 tab for 3 days, then 1 tab for 3 days, then 1/2 tab for 3 days. No Action isosorbide mononitrate 30 mg tablet extended release 24 hr 30 mg PO DAILY Qty: 90 3RF Hold Instructions: Resume on 07/01/21. phenobarbital 97.2 mg tablet See Rx Instructions .ROUTE .COMPLEX 0RF Rx Instructions: 97.2 mg orally IN THE MORNING / 48.6 MG (1/2TAB) ORALLY IN THE EVENING fluticasone propion-salmeterol [Wixela Inhub] 250-50 mcg/dose blister with device 1 inh INHALATION BID 0RF clopidogrel 75 mg tablet 75 mg PO DAILY 0RF simvastatin 80 mg tablet 80 mg PO BEDTIME 0RF hydrocodone-acetaminophen 10-325 mg tablet 1 tab PO Q6H PRN (Reason: Pain) 0RF tamsulosin 0.4 mg capsule 0.8 mg PO DAILY 0RF nitroglycerin 0.4 mg tablet, sublingual 0.4 mg sublingual Q5MIN PRN (Reason: Chest Pain) 0RF epinephrine 0.3 mg/0.3 mL auto-injector 0.3 mg SUBCUT ONCE PRN (Reason: Anaphylaxis) 0RF ezetimibe 10 mg tablet 10 mg PO DAILY 0RF Combivent Respimat 20-100 mcg/actuation mist 2 puff INHALATION QID 0RF aspirin 81 mg Tablet,Delayed Release (Dr/Ec) 81 mg PO DAILY Qty: 30 0RF metoprolol tartrate 25 mg tablet 37.5 mg PO BID Qty: 80 0RF ipratropium-albuterol 0.5 mg-3 mg(2.5 mg base)/3 mL solution for nebulization 3 ml INHALATION QID PRN (Reason: Shortness Of Breath) 0RF diltiazem HCl 60 mg capsule,extended release 12 hr 60 mg PO BID Qty: 180 0RF Discharge Orders: Discharge ED (Routine); Ordered 10/19/21 Ordered By: Zachariah Johnson Referrals: Carmelita Piper MD [Primary Care Provider] - 1-3 days Discharge Diet: Advance as tolerated Discharge Activity: Increase activity as tolerated Patient Instructions: Chest Pain (ED), COPD (Chronic Obstructive Pulmonary Disease) (ED) Activity Restrictions/Additional Instructions: Use your nebulizer machine every 4 hours while awake for the next 48 hours, then as needed. Medication as directed. Return immediately to the emergency room for any return of your chest pain, worsening shortness of breath, fever greater than 100, any other concerning symptoms. Coding Level of Care Code ED [employer] Practitioner for Rakesh Fwd Exam Comprehensive
[2021-10-18 21:51] LABS: Basophils % 0.6 %; Eosinophils # 0.1 10^3/uL (0.0-0.8); Eosinophils % 1.9 %; Hematocrit 38.8 % (42.0-52.0); Hemoglobin 12.1 g/dL (11.7-16.6); Lymphocytes # 0.6 10^3/uL (0.8-4.8); Lymphocytes % 10.6 %; Mean Corpuscular HGB Conc 31.2 g/dL (30.0-36.0); Mean Corpuscular Hemoglobin 32.1 pg (28.0-34.0); Mean Corpuscular Volume 102.9 fl (80-94); Monocytes # 0.5 10^3/uL (0.2-0.9); Monocytes % 9.8 %; Neutrophils # 4.15 10^3/uL (1.8-7.7); Neutrophils % 76.7 %; Nucleated Red Blood Cells % 0 %; Platelet Count 147 10^3/cmm (130-400); Red Blood Count 3.77 10^6/uL (4.1-5.3); Red Cell Distribution Width 13.4 % (12.1-15.1); White Blood Count 5.4 10^3/uL (4.0-10.0)
[2021-10-18 22:09] LABS: Anion Gap 12.4 (5-19); Blood Urea Nitrogen 14 mg/dL (8-23); Calcium 8.6 mg/dL (8.5-10.5); Carbon Dioxide 35 mmol/L (22-29); Chloride 94 mmol/L (98-107); Glucose 81 mg/dL (65-115); Osmolality Calculated 284 mOsm/kg (285-295); Potassium 4.4 mmol/L (3.5-5.1); Sodium 137 mmol/L (136-145)
[2021-10-18 22:10] LABS: Troponin(5th) Baseline 37 ng/L (0-15)
[2021-10-18] MEDS: ipratropium-albuterol 3 mL Neb INHALATION ×2 (22:47→22:57)
[2021-10-19 00:06] LABS: Troponin 5 2HR 38.13 ng/L (0-15)
[2021-10-19 00:08] LABS: Troponin 5 2HR Delta 1.13 ABS# (0-10)
[2021-10-19] MEDS: ipratropium-albuterol 3 mL Neb 9 ML INHALATION (01:06)
[2021-10-19 01:08] VITALS: PULSE 80; RESP 14; O2SAT 100
[2021-10-19 01:23] VITALS: PULSE 97
[2021-10-19 03:04] VITALS: BP 112/62; PULSE 106; RESP 22; O2SAT 98
== END 2021-10-19 03:04 | disposition home or self-care (01) ==
PROVIDERS: Emergency Medicine; Emergency Provider Emergency Medicine; PCP Family Medicine
DX: J44.1 Chronic obstructive pulmonary disease with (acute) exacerbation (principal); R07.9 Chest pain, unspecified; I25.10 Atherosclerotic heart disease of native coronary artery without angina pectoris; F17.200 Nicotine dependence, unspecified, uncomplicated; Z95.5 Presence of coronary angioplasty implant and graft; I25.2 Old myocardial infarction; Z99.81 Dependence on supplemental oxygen
CPT/HCPCS: 71045; 80048; 84484; 85025; 93005; 94640; 96374; 99285; J2930

== ENCOUNTER 2022-05-01 10:23 | Inpatient (IN) | payer MEDICARE, MEDICAID, SELFPAY ==
[2022-05-01] VITALS (12 sets, daily range): BP systolic 103–116; BP diastolic 60–80; PULSE 83–112; RESP 12–24; TEMP 36.4–36.9; O2SAT 90–100; BMI 17.1; BMI 17.4
--- NOTE | 2022-05-01 11:15 | ED_ITS ---
HPI - SOB/Dyspnea General: Chief Complaint: Shortness of Breath/Dyspnea Stated Complaint: resp ditress Time Seen by Provider: 05/01/22 10:25 Source: patient Mode of arrival: EMS History of Present Illness: HPI Narrative: 76-year-old male presents emergency room complaining of increasing shortness of breath. On arrival he is at 5 L by nasal cannula satting 88% he recently had a pneumonia Which she was treated as an outpatient. He denies any fevers sweats or chills. He has not had any hemoptysis. He denies any chest pain. MD elicited complaint: shortness of breath and cough Pertinent past history: COPD Onset (ago): day(s) Context: recent illness Timing: constant Severity: moderate Exacerbating factors: lying flat, exertion and coughing Relieving factors: oxygen, rest and bronchodilators Known history of: COPD Associated symptoms: Reports chest congestion and cough; Deny abdominal pain, chest pain, diaphoresis, dizziness, extremity pain, fever(s), hemoptysis, lightheadedness, myalgias, nausea, orthopnea, pal pitations, paresthesias, polydipsia, polyuria, rash, sense of impending doom, syncope or vomiting Treatment prior to arrival: none Review of Systems Const: Denies: fever(s), chills, fatigue, malaise or diaphoresis ENMT: Denies: throat pain, ear or mastoid pain, nasal discharge or nasal congestion Card: Denies: chest pain, palpitations, lightheadedness, syncope or orthopnea Resp: Reports: dyspnea, productive cough, wheezing and chest congestion; Denies: hemoptysis GI: Denies: abdominal pain, nausea or vomiting : Denies: flank pain, dysuria, urinary frequency or urinary urgency Musc: Denies: extremity pain Skin/Breast: Denies: rash or pruritus Neuro: Denies: dizziness Endo: Denies: polyuria or polydipsia PFSH ED PFSH: Medical History Abdominal aortic aneurysm BPH (benign prostatic hyperplasia) CAD (coronary artery disease) COPD (chronic obstructive pulmonary disease) HLD (hyperlipidemia) New onset atrial fibrillation NSTEMI (non-ST elevated myocardial infarction) Respiratory failure Seizure Surgical History History of appendectomy Presence of drug coated stent in left circumflex coronary artery S/P PTCA (percutaneous transluminal coronary angioplasty) Family History Other CAD (coronary artery disease) Cancer Social History Quit status (tobacco): considering quitting Second hand smoke exposure: Yes Smoking risk assessment/counseling performed?: Yes Alcohol intake: never Lives independently: Yes Household members: spouse Housing: House Marital status: service: No Current occupational status: retired Pets and animals: No History of recent travel: No Current gender identity: Male Physical Exam Const: COMMON NORMALS: no acute distress GENERAL APPEARANCE: cooperative and comfortable ORIENTATION/CONSCIOUSNESS: Yes awake, Yes oriented to person, Yes oriented to place and Yes oriented to time HENMT: COMMON NORMALS: normocephalic, atraumatic and hearing grossly normal bilaterally HEAD & SCALP: normocephalic and atraumatic Resp: EFFORT & INSPECTION: Yes tachypneic AUSCULTATION: rhonchi and wheezes Cardio: COMMON NORMALS: regular rhythm and No murmurs present (Cardio) RATE: tachycardic RHYTHM: regular rhythm GI: COMMON NORMALS: Soft to palpation and No hepatosplenomegaly present AUSCULTATION: Yes normoactive bowel sounds PALPATION: Yes Soft to palpation, No Tenderness to palpation present (GI), No Guarding due to palpation present (GI) and Yes No hepatosplenomegaly present Extremity: COMMON NORMALS: normal to inspection, capillary refill normal, no clubbing, cyanosis or edema, no calf tenderness and no pedal edema Neuro: SENSORIUM/ORIENTATION: Yes oriented to person, Yes oriented to place and Yes oriented to time Skin: COMMON NORMALS: no rashes or lesions noted GENERAL SKIN EXAM: no rashes or lesions noted Course Vital Signs: Vital signs: Vital Signs Temperature 98.2 F 05/02/22 11:49 Pulse Rate 90 05/02/22 16:16 Respiratory Rate 18 05/02/22 16:16 Blood Pressure 106/67 05/02/22 11:49 Pulse Oximetry 84 L 05/02/22 16:16 Oxygen Delivery Me thod 05/02/22 14:20 Oxygen Flow Rate 3 05/02/22 14:20 Fraction of Inspir ed Oxygen 40 05/01/22 20:00 MDM - SOB/Dyspnea Medical Decision Making Checks x-ray shows pneumonia patient has increasing oxygen need and will admit discussed with hospitalist orders written Medical Records I reviewed the patient's medical records. Lab Data I reviewed the patient's lab results. 05/02/22 04:35 05/02/22 04:35 Labs/Radiology: Radiology Impressions Chest X-Ray 05/01/22 11:15 IMPRESSION: Increasing consolidation and/or effusion in the left base Laboratory Results WBC 5.6 10^3/uL (4.0-10.0) 05/01/22 10:40 RBC 3.53 10^6/uL (4.1-5.3) L 05/01/22 10:40 Hgb 11.1 g/dL (11.7-16.6) L 05/01/22 10:40 Hct 37.0 % (42.0-52.0) L 05/01/22 10:40 MCV 104.8 fl (80-94) H 05/01/22 10:40 MCH 31.4 pg (28.0-34.0) 05/01/22 10:40 MCHC 30.0 g/dL (30.0-36.0) 05/01/22 10:40 RDW 13.2 % (12.1-15.1) 05/01/22 10:40 Plt Count 189 10^3/cmm (130-400) 05/01/22 10:40 MPV 9.5 fL (7.4-10.4) 05/01/22 10:40 Neut % (Auto) 76.1 % 05/01/22 10:40 Lymph % (Auto) 11.0 % 05/01/22 10:40 [place] % (Auto) 10.3 % 05/01/22 10:40 Eos % (Auto) 1.4 % 05/01/22 10:40 Baso % (Auto) 0.7 % 05/01/22 10:40 Neut # (Auto) 4.23 10^3/uL (1.8-7.7) 05/01/22 10:40 Lymph # (Auto) 0.6 10^3/uL (0.8-4.8) L 05/01/22 10:40 [place] # (Auto) 0.6 10^3/uL (0.2-0.9) 05/01/22 10:40 Eos # (Auto) 0.1 10^3/uL (0.0-0.8) 05/01/22 10:40 Baso # (Auto) 0.0 10^3/uL (0.0-0.1) 05/01/22 10:40 Nucleated RBC % (auto) 0 % 05/01/22 10:40 Nucleated RBCs # 0.0 /100WBC 05/01/22 10:40 Specimen Type Arterial 05/01/22 11:14 Sample Site Brachial, left 05/01/22 11:14 ABG pH 7.35 (7.35-7.45) 05/01/22 11:14 ABG pCO2 85.5 mmHg (35-45) H* 05/01/22 11:14 ABG pO2 50.5 mmHg (80.0-100.0) L 05/01/22 11:14 ABG HCO3 47.2 mmol/L (22-26) H 05/01/22 11:14 ABG O2 Saturation 86.0 05/01/22 11:14 ABG Base Excess 18.0 mmol/L (-2.0-2.0) H 05/01/22 11:14 Cam Test Pos 05/01/22 11:14 A-a O2 Gradient Not Reportable 05/01/22 11:14 Hematocrit 33.3 % (42-52) L 05/01/22 11:14 Hgb O2 Saturation 82.9 % (95-100) L 05/01/22 11:14 Carboxyhemoglobin 2.8 %THgb (0.4-20.1) 05/01/22 11:14 Methemoglobin 0.8 % (0.4-1.5) 05/01/22 11:14 Total Hemoglobin 10.9 g/dL (14-18) L 05/01/22 11:14 Sodium 142.0 mmol/L (131-143) 05/01/22 11:14 Potassium 4.3 mmol/L (3.5-5.0) 05/01/22 11:14 Glucose 90.0 mg/dL (70-115) 05/01/22 11:14 Ionized Calcium 1.2 mmol/L (1.1-1.4) 05/01/22 11:14 O2 Delivery Device Nc 05/01/22 11:14 O2 Liters/Min 6.0 % 05/01/22 11:14 Senior Administrator Support ID Cak 05/01/22 11:14 Sodium 141 mmol/L (136-145) 05/01/22 10:40 Potassium 4.9 mmol/L (3.5-5.1) 05/01/22 10:40 Chloride 94 mmol/L (98-107) L 05/01/22 10:40 Carbon Dioxide 43 mmol/L (22-29) H* 05/01/22 10:40 Anion Gap 8.9 (5-19) 05/01/22 10:40 BUN 19 mg/dL (8-23) 05/01/22 10:40 Creatinine 0.4 mg/dL (0.7-1.2) L 05/01/22 10:40 GFR Calculation Not Reportable 05/01/22 10:40 Glucose 95 mg/dL (65-115) 05/01/22 10:40 Calculated Osmolality 294 mOsm/kg (285-295) 05/01/22 10:40 Calcium 8.8 mg/dL (8.5-10.5) 05/01/22 10:40 Total Bilirubin 0.2 mg/dL (0.15-1.2) 05/01/22 10:40 AST 50 U/L (0-40) H 05/01/22 10:40 ALT 40 U/L (0-41) 05/01/22 10:40 Alkaline Phosphatase 119 U/L (40-130) 05/01/22 10:40 NT-Pro-B Natriuret Pep 3582 pg/mL (0-450) H 05/01/22 10:40 Total Protein 6.0 g/dL (6.6-8.7) L 05/01/22 10:40 Albumin 3.3 g/dL (3.5-5.2) L 05/01/22 10:40 Globulin 2.7 g/dL (1.3-4.6) 05/01/22 10:40 Procalcitonin 0.04 ng/mL (0-0.5) 05/01/22 11:54 Coronavirus 229E (PCR) Not detected (NOT DETECT) 05/01/22 11:30 Influenza Type A Ag negative (Negative) 05/01/22 11:30 Influenza Type B Ag negative (Negative) 05/01/22 11:30 SARS-CoV-2 (PCR) Not detected (NOT DETECT) 05/01/22 11:30 Discharge Plan Discharge Patient Disposition: Admitted As Inpatient Admit Provider: Avery Simon Clinical Impression: Community acquired pneumonia, Acute exacerbation of chronic obstructive airways disease Condition: Stable Discharge Diet: Advance as tolerated and Usual diet Discharge Activity: Resume usual activity and Increase activity as tolerated Coding Level of Care Code ED Academic Guidance Specialist for [facility] Sharma
--- NOTE | 2022-05-01 11:15 | XR_ITS ---
WS: [id number] EXAMINATION: XR chest 1V portable 10821 REASON FOR EXAM: dyspnea/cough COMPARISON: 10/18/2021 ORDER DATE: 05/01/2022 11:15 AM TECHNIQUE: A single, portable frontal chest x-ray was obtained. Lungs: Emphysematous hyperinflated lungs. Increasing consolidation in the left base. Pleural spaces: Small but increasing left effusion and/or consolidation. No pneumothorax. Heart/Mediastinum: Stable mild cardiomegaly. Bones/joints: Unremarkable. XR/XR chest 1V portable [id number] IMPRESSION: Increasing consolidation and/or effusion in the left base
[2022-05-01 11:25] LABS: ABG PCO2 85.5 mmHg (35-45); ABG PH Result 7.35 (7.35-7.45); Arterial Blood Gas Hematocrit 33.3 % (42-52); Blood Gas Allen Test Pos; Blood Gas Operator Identificat CAK; Blood Gas Sample Site Brachial, left; Blood Gas Sample Type Arterial; Carboxyhemoglobin 2.8 %THgb (0.4-20.1); HCO3 ABG 47.2 mmol/L (22-26); HGB O2 Sat 82.9 % (95-100); Ionized Calcium Level - ABG 1.2 mmol/L (1.1-1.4); Methemoglobin 0.8 % (0.4-1.5); Oxygen Device NC; PO2 ABG 50.5 mmHg (80.0-100.0); Potassium Level - ABG 4.3 mmol/L (3.5-5.0); Total Hemoglobin 10.9 g/dL (14-18)
[2022-05-01] MEDS: ondansetron 2 mg/ML SDV 2 mL 4 MG IVP (11:27)
[2022-05-01 11:30] LABS: Basophils % 0.7 %; Eosinophils # 0.1 10^3/uL (0.0-0.8); Eosinophils % 1.4 %; Hemoglobin 11.1 g/dL (11.7-16.6); Lymphocytes # 0.6 10^3/uL (0.8-4.8); Mean Corpuscular Hemoglobin 31.4 pg (28.0-34.0); Mean Corpuscular Volume 104.8 fl (80-94); Mean Platelet Volume 9.5 fL (7.4-10.4); Monocytes # 0.6 10^3/uL (0.2-0.9); Monocytes % 10.3 %; Neutrophils # 4.23 10^3/uL (1.8-7.7); Neutrophils % 76.1 %; Nucleated Red Blood Cells % 0 %; Platelet Count 189 10^3/cmm (130-400); Red Blood Count 3.53 10^6/uL (4.1-5.3); Red Cell Distribution Width 13.2 % (12.1-15.1); White Blood Count 5.6 10^3/uL (4.0-10.0)
[2022-05-01] MEDS: ipratropium-albuterol 3 mL Neb 6 ML INHALATION (11:38)
[2022-05-01 11:50] LABS: Influenza A by IFA negative (Negative); Influenza B by IFA negative (Negative)
[2022-05-01 11:51] LABS: Alanine Aminotransferase 40 U/L (0-41); Albumin Level 3.3 g/dL (3.5-5.2); Alkaline Phosphatase 119 U/L (40-130); Aspartate Amino Transferase 50 U/L (0-40); Blood Urea Nitrogen 19 mg/dL (8-23); Calcium 8.8 mg/dL (8.5-10.5); Chloride 94 mmol/L (98-107); Globulin 2.7 g/dL (1.3-4.6); Glucose 95 mg/dL (65-115); NT Pro B Type Natriuretic Pept 3582 pg/mL (0-450); Osmolality Calculated 294 mOsm/kg (285-295); Sodium 141 mmol/L (136-145); Total Bilirubin 0.2 mg/dL (0.15-1.2)
[2022-05-01 11:53] LABS: Anion Gap 8.9 (5-19); Potassium 4.9 mmol/L (3.5-5.1)
[2022-05-01 11:54] LABS: Carbon Dioxide 43 mmol/L (22-29)
--- NOTE | 2022-05-01 12:21 | PC.PHAR ---
pts daughter verified pts medications and brought in med bottles-pts daughter brought in the med bottle for phenobarbital 1 tab bid daughter states the pt still takes but takes 1/2 tab qam and 1 tab hs-ext med history shows last filled 10/04/21 30d/s for 1 tab bid-
[2022-05-01 13:16] LABS: Adenovirus Not Detected (NOT DETECT); Chlamydia Pneumoniae Not Detected (NOT DETECT); Coronavirus 229E,HKU1,NL63,OC4 Not Detected (NOT DETECT); Human Metapneumovirus Not Detected (NOT DETECT); Human Rhinovirus/Enterovirus Not Detected (NOT DETECT); Influenza A Not Detected (NOT DETECT); Influenza A H1 Not Detected (NOT DETECT); Influenza A H1-2009 Not Detected (NOT DETECT); Influenza A H3 Not Detected (NOT DETECT); Influenza B Not Detected (NOT DETECT); Mycoplasma Pneumoniae Not Detected (NOT DETECT); Parainfluenza Virus Type 1 Not Detected (NOT DETECT); Parainfluenza Virus Type 2 Not Detected (NOT DETECT); Parainfluenza Virus Type 3 Not Detected (NOT DETECT); Parainfluenza Virus Type 4 Not Detected (NOT DETECT); Respiratory Syncytial Virus A Not Detected (NOT DETECT); Respiratory Syncytial Virus B Not Detected (NOT DETECT); SARS-COV-2 Not Detected (NOT DETECT)
[2022-05-01] MEDS: cefepime 2,000 MG in sodium chloride 0.9% (plus) 50 ML 100 MG IV (13:20)
[2022-05-01] MEDS: ipratropium-albuterol 3 mL Neb INHALATION ×2 (16:10→20:02)
[2022-05-01] MEDS: sodium chloride 0.9% 1,000 ML 100 ML IV (16:34)
--- NOTE | 2022-05-01 16:49 | PM.HP ---
Providers/Chief Complaint Admitting Physician: Avery Simon MD Primary Care Provider: Carmelita Piper MD Chief Complaint: resp ditress History of Present Illness Geo Yip is a 76 year old male with a past medical history significant for AAA, BPH, coronary artery disease, COPD, hyperlipidemia, and seizure disorder who presents with shortness of breath and dyspnea x2 days. He reports cough. He endorses a history of chronic hypoxic respiratory failure. In the emergency department he was found to have a higher oxygen requirement than his baseline. He endorses generalized malaise and fatigue. Reports appetite is okay. Endorses pleurisy. Reports exertion worsens the pain. Denies alleviating factors. In the ED, patient was found to have left-sided pneumonia. Review of Systems Narrative: A complete review of systems was obtained and is negative except as stated in HPI. Medications/Allergies Home Medications Medication Instructions Recorded Confirmed Last Taken Type clopidogrel 75 mg tablet 75 mg PO QPM 11/06/20 05/01/22 04/30/22 History ezetimibe 10 mg tablet 10 mg PO QAM 11/06/20 05/01/22 05/01/22 History fluticasone 250 mcg-salmeterol 50 1 inh inhalation BID 11/06/20 05/01/22 05/01/22 History mcg/dose blistr powdr for inhalation (Wixela Inhub) hydrocodone 10 mg-acetaminophen 1 tab PO Q6H PRN Pain 11/06/20 05/01/22 05/01/22 History 325 mg tablet ipratropium 20 mcg-albuterol 100 2 puff inhalation Q4H 11/06/20 05/01/22 05/15/21 21:00 History mcg/actuation mist for inhalation (Combivent Respimat) simvastatin 80 mg tablet 80 mg PO BEDTIME 11/06/20 05/01/22 04/30/22 History tamsulosin 0.4 mg capsule 0.8 mg PO QAM 11/06/20 05/01/22 05/01/22 History ipratropium 0.5 mg-albuterol 3 mg 3 ml inhalation Q4H PRN Shortness 06/23/21 05/01/22 Unknown History (2.5 mg base)/3 mL nebulization Of Breath soln ascorbic acid (vitamin C) 500 mg 500 mg PO DAILY 05/01/22 05/01/22 Unknown History tablet (Vitamin C) aspirin 81 mg tablet,delayed 81 mg PO QAM 05/01/22 05/01/22 05/01/22 History release cyanocobalamin (vitamin B-12) 5,000 mcg sublingual DAILY 05/01/22 05/01/22 Unknown History 5,000 mcg sublingual tablet (Vitamin B-12) diltiazem HCl 60 mg 60 mg PO BID@07,19 05/01/22 05/01/22 05/01/22 07:00 History capsule,extended release 12 hr epinephrine 0.3 mg/0.3 mL 0.3 mg IM Q4H PRN Anaphylaxis 05/01/22 05/01/22 Unknown History injection, auto-injector (EpiPen) isosorbide mononitrate 30 mg 30 mg PO QPM 05/01/22 05/01/22 04/30/22 History tablet,extended release 24 hr metoprolol tartrate 25 mg tablet 37.5 mg PO BID@,19 05/01/22 05/01/22 05/01/22 History nitroglycerin 0.4 mg sublingual 0.4 mg sublingual Q5M PRN Chest 05/01/22 05/01/22 Unknown History tablet (Nitrostat) Pain phenobarbital 97.2 mg tablet See Rx Instructions .Route .COMPLEX 05/01/22 05/01/22 05/01/22 History Allergies Allergy/AdvReac Type Severity Reaction Status Date / Time decongestants Allergy Severe shuts down Uncoded 07/08/21 09:02 kidneys PFSH Acute PFSH: Medical History (Updated 05/01/22 @ 16:56 by Avery Simon MD) Abdominal aortic aneurysm BPH (benign prostatic hyperplasia) CAD (coronary artery disease) COPD (chronic obstructive pulmonary disease) HLD (hyperlipidemia) New onset atrial fibrillation NSTEMI (non-ST elevated myocardial infarction) Respiratory failure Seizure Surgical History History of appendectomy Presence of drug coated stent in left circumflex coronary artery S/P PTCA (percutaneous transluminal coronary angioplasty) Family History Other CAD (coronary artery disease) Cancer Social History Quit status (tobacco): considering quitting Second hand smoke exposure: Yes Smoking risk assessment/counseling performed?: Yes Alcohol intake: never Lives independently: Yes Household members: spouse Housing: House Marital status: service: No Current occupational status: retired Pets and animals: No History of recent travel: No Current gender identity: Male Vitals/I&O/Wt Last Vital Signs Temp 98.5 F 05/01/22 15:55 Pulse 100 05/01/22 16:11 Resp 16 05/01/22 16:11 BP 112/60 05/01/22 15:55 Pulse Ox 100 05/01/22 16:11 O2 Del Method 05/01/22 16:11 O2 Flow Rate 6 05/01/22 16:11 FiO2 40 05/01/22 13:44 05/01/22 05/01/22 05/01/22 06:59 14:59 22:59 Intake Total 50 / 50 Balance 50 / 50 Weight last 48 hrs Weight 58.967 kg Physical Exam Narrative: General: Patient is awake. Very frail appearing. Head: Normocephalic. Atraumatic. EOM intact. Neck: No JVD. Cardiovascular: RRR. No gallops. No murmurs. No peripheral edema. Lungs: Breath sounds are coarse. There are diminished bilateral bases. There is rhonchi in the left lung base. On nasal cannula support. Skin: No jaundice. No rashes. Multiple bruises. Abdomen: Normal bowel sounds, abdomen soft and nontender. Genito Urinary: Genital exam not performed since complaints not related. Rectal: Rectal exam not performed since no symptoms indicated blood loss. Extremities: No cyanosis or clubbing. Musculoskeletal: Poor muscular development. Neurological: Moves all 4 extremities. No myoclonus. Data 05/01/22 10:40 05/01/22 10:40 Micro: Microbiology 05/01/22 13:24 Blood Culture - Preliminary Blood SPECIMEN COLLECTED 05/01/22 13:17 Blood Culture - Preliminary Blood SPECIMEN COLLECTED A&P Assessment and plan (1) Left lower lobe pneumonia: Left basal pneumonia Start ceftriaxone Start azithromycin Pneumococcal antigen ordered Legionella antigen ordered Procalcitonin Pulmonary toilet (2) Respiratory failure: Acute on chronic Secondary to COPD and pneumonia Treat underlying COPD Treat underlying pneumonia Qualifiers: Chronicity: acute on chronic (3) COPD (chronic obstructive pulmonary disease): Acute COPD exacerbation secondary to pneumonia Start methylprednisolone Scheduled duo nebs Pulmicort Qualifiers: COPD type: emphysema Emphysema type: centrilobular Qualified Code(s): J43.2 - Centrilobular emphysema (4) Smoker: Patient would benefit from cessation Anticipate tobacco cessation counseling prior to discharge (5) Multi-vessel coronary artery stenosis: Continue home aspirin Continue statin Continue Zetia Continue Plavix Continue Imdur Nitroglycerin as needed (6) Seizure: Continue home AED (7) BPH (benign prostatic hyperplasia): Continue Flomax Plan DVT prophylaxis: Lovenox CODE STATUS: Full code Attestations Medical Necessity Statement*: Patient being admitted for acute on chronic hypoxic respiratory failure with acute COPD exacerbation and left-sided pneumonia with expected hospitalization across 2 midnights. Coding Level of Care Code Acute Engraving Supervisor for [facility] Fwd Diagnoses Left lower lobe pneumonia J18.9 Respiratory failure J96.90 Chronicity: acute on chronic COPD (chronic obstructive pulmonary disease) J43.2 COPD type: emphysema Emphysema type: centrilobular Smoker F17.200 Multi-vessel coronary artery stenosis I25.10 Seizure R56.9 BPH (benign prostatic hyperplasia) N40.0
[2022-05-01 17:47] LABS: Procalcitonin 0.04 ng/mL (0-0.5)
[2022-05-01] MEDS: azithromycin 500 MG in sodium chloride 0.9% 250 ML 250 MG IV (17:57)
[2022-05-01] MEDS: clopidogrel 75 mg Tablet PO (18:00)
[2022-05-01] MEDS: isosorbide mononitrate ER 30 mg Tablet PO (18:01)
[2022-05-01] MEDS: metoprolol tartrate 25 mg Tablet 37.5 MG PO (19:50)
[2022-05-01] MEDS: PHENobarbital 32.4 mg Tablet 97.2 MG PO (19:52)
[2022-05-01] MEDS: budesonide 0.5 mg/2 mL Neb INHALATION (20:02)
[2022-05-01] MEDS: atorvastatin 40 mg Tablet PO (20:26)
[2022-05-01] MEDS: dilTIAZem ER (12HR) 60 mg Capsule PO (20:26)
[2022-05-01] MEDS: cefTRIAXone 1,000 MG in sodium chloride 0.9% (plus) 50 ML 100 MG IV (20:27)
[2022-05-02] VITALS (9 sets, daily range): BP systolic 106–120; BP diastolic 66–71; PULSE 75–90; RESP 18–19; TEMP 36.4–36.8; O2SAT 84–100
[2022-05-02 04:57] LABS: Basophils % 0.2 %; Hematocrit 31.6 % (42.0-52.0); Hemoglobin 9.5 g/dL (11.7-16.6); Lymphocytes # 0.4 10^3/uL (0.8-4.8); Lymphocytes % 6.8 %; Mean Corpuscular HGB Conc 30.1 g/dL (30.0-36.0); Mean Corpuscular Hemoglobin 31.9 pg (28.0-34.0); Mean Platelet Volume 9.6 fL (7.4-10.4); Monocytes # 0.4 10^3/uL (0.2-0.9); Monocytes % 7.2 %; Neutrophils # 4.41 10^3/uL (1.8-7.7); Neutrophils % 85.2 %; Nucleated Red Blood Cells % 0 %; Platelet Count 169 10^3/cmm (130-400); Red Blood Count 2.98 10^6/uL (4.1-5.3); Red Cell Distribution Width 13.2 % (12.1-15.1); White Blood Count 5.2 10^3/uL (4.0-10.0)
[2022-05-02 05:16] LABS: Blood Urea Nitrogen 20 mg/dL (8-23); Calcium 8.6 mg/dL (8.5-10.5); Chloride 97 mmol/L (98-107); Glucose 112 mg/dL (65-115); Magnesium 1.9 mg/dL (1.7-2.3); Osmolality Calculated 299 mOsm/kg (285-295); Phosphorus 3.3 mg/dL (2.5-4.5); Sodium 143 mmol/L (136-145)
[2022-05-02 05:45] LABS: Anion Gap 9.3 (5-19); Carbon Dioxide 42 mmol/L (22-29); Potassium 5.3 mmol/L (3.5-5.1)
[2022-05-02] MEDS: aspirin 81 mg EC Tablet PO (06:09)
[2022-05-02] MEDS: tamsulosin 0.4 mg Capsule 0.8 MG PO (06:09)
[2022-05-02] MEDS: ezetimibe 10 mg Tablet PO (06:09)
[2022-05-02] MEDS: budesonide 0.5 mg/2 mL Neb INHALATION (08:01)
[2022-05-02] MEDS: ipratropium-albuterol 3 mL Neb INHALATION ×2 (08:01→11:37)
[2022-05-02] MEDS: sodium polystyrene sulfonate 15 gm/60 mL Btl PO (08:17)
[2022-05-02] MEDS: ascorbic acid 500 mg Tablet PO (08:17)
[2022-05-02] MEDS: metoprolol tartrate 25 mg Tablet 37.5 MG PO (08:17)
[2022-05-02] MEDS: dilTIAZem ER (12HR) 60 mg Capsule PO (08:17)
[2022-05-02] MEDS: PHENobarbital 32.4 mg Tablet 48.6 MG PO (08:18)
--- NOTE | 2022-05-02 08:50 | P.PN_ITS ---
Subjective Subjective: Patient endorses shortness of breath and cough. Endorses generalized malaise and fatigue. Denies chest pain, abdominal pain, or focal weakness. Medications: Reviewed: Yes Vitals/I&O/Wt Last Vital Signs Temp 97.7 F 05/02/22 08:00 Pulse 88 05/02/22 08:00 Resp 18 05/02/22 08:00 BP 120/66 05/02/22 08:00 Pulse Ox 99 05/02/22 08:00 O2 Del Method 05/02/22 08:00 O2 Flow Rate 4 05/02/22 08:00 FiO2 40 05/01/22 20:00 05/01/22 05/02/22 05/02/22 22:59 06:59 14:59 Intake Total 660 / 710 0 / 710 Output Total 300 / 300 0 / 300 Balance 360 / 410 0 / 410 Weight last 48 hrs Weight 61.371 kg Weight 59.874 kg Weight 58.967 kg Physical Exam Narrative: General: Patient is awake. Very frail appearing. Head: Normocephalic. Atraumatic. EOM intact. Neck: No JVD. Cardiovascular: RRR. No gallops. No murmurs. No peripheral edema. Lungs: Breath sounds are coarse. There are diminished bilateral bases. Rhonchi are present in the left lung base. On nasal cannula support. Skin: No jaundice. No rashes. Multiple bruises. Abdomen: Normal bowel sounds, abdomen soft and nontender. Genito Urinary: Genital exam not performed since complaints not related. Rectal: Rectal exam not performed since no symptoms indicated blood loss. Extremities: No cyanosis or clubbing. Musculoskeletal: Poor muscular development. Neurological: Moves all 4 extremities. No myoclonus. Data 05/02/22 04:35 05/02/22 04:35 Micro: Microbiology 05/01/22 13:24 Blood Culture - Preliminary Blood SPECIMEN COLLECTED 05/01/22 13:17 Blood Culture - Preliminary Blood SPECIMEN COLLECTED A&P Assessment and plan (1) Left lower lobe pneumonia: Left basal pneumonia Continue ceftriaxone Continue azithromycin Pneumococcal antigen negative Legionella antigen negative Pulmonary toilet (2) Respiratory failure: Acute on chronic Secondary to COPD and pneumonia Treat underlying COPD Treat underlying pneumonia Qualifiers: Chronicity: acute on chronic (3) COPD (chronic obstructive pulmonary disease): Acute COPD exacerbation secondary to pneumonia Continue methylprednisolone Scheduled duo nebs Pulmicort Qualifiers: COPD type: emphysema Emphysema type: centrilobular Qualified Code(s): J43.2 - Centrilobular emphysema (4) Smoker: Patient would benefit from cessation (5) Multi-vessel coronary artery stenosis: Continue home aspirin Continue statin Continue Zetia Continue Plavix Continue Imdur Nitroglycerin as needed (6) Seizure: Continue home AED (7) BPH (benign prostatic hyperplasia): Continue Flomax Plan DVT prophylaxis: Lovenox CODE STATUS: Full code Attestations Medical Necessity Statement*: Patient being admitted for acute on chronic hypoxic respiratory failure with acute COPD exacerbation and left-sided pneumonia with expected hospitalization across 2 midnights Coding Level of Care Code Acute Waterworks Operator for [facility] Fw Diagnoses Left lower lobe pneumonia J18.9 Respiratory failure J96.90 Chronicity: acute on chronic COPD (chronic obstructive pulmonary disease) J43.2 COPD type: emphysema Emphysema type: centrilobular Smoker F17.200 Multi-vessel coronary artery stenosis I25.10 Seizure R56.9 BPH (benign prostatic hyperplasia) N40.0
--- NOTE | 2022-05-02 11:18 | PC.CHAP ---
Pastoral Care Encounter/Spiritual Assessment Type of Contact [] Declined dairy nutrition consultant visit [] Patient/Family/Request visit [] Outpatient visit [] Follow-up visit [] Physician referral [] Code/Alert [x] Routine visit [] Staff referral [] Actively dying [] Patient sleeping [x] Family support [] [] Out of room [] Palliative care [] [] Receiving care in room [] Pre-surgical visit [] Trauma [] Long length of stay [] ICU visit [] Other: Relational/Emotional Strength [] Patient feels connected with others/family/visitors/staff [] Distress [] Loneliness/isolation [] Abandonment Spirituality of Patient [x] Person of Clemencia [] Attends Scientology of their Clemencia [x] Believes in Prayer [] Reads Bible or Jehovah'S Witness materials [] There are Spiritual issues to be addressed Plastic Tubing Insulation Supervisor Interventions [x] Prayer [] Active listening [] Non-anxious presence [] Spiritual/emotional support [] Crisis/trauma care [] Spiritual counseling [] Bereavement support [] Provided bereavement packet [] Provided Bible/devotional materials [] Provided toy/stuffed animal, coloring book to patient or family member [] Provided Communion [] Anointing/Friendship [] Salvation [] Completed spiritual assessment [] Other: Impact on Illness or Injury [] Angry [] Fearful [] Anxious [] Often cries [] Exhaustion [] Unable to work [] Unable to attend congregational [] Unable to walk/stand [] Unable to read [] Unable to drive [] Unable to eat/drink [] Unable to sleep [] Unable to be with family [] Patient intubated [] Other: Summary Time spent with patient 5 min
--- NOTE | 2022-05-02 14:54 | P.DS_ITS ---
Discharge Providers Date of Admission: 05/01/22 12:46 Date of Discharge: May 02, 2022 Attending Provider at Admission: Avery Simon MD Attending Provider at Discharge: Avery Simon MD Consults: None Primary Care Provider: Carmelita Piper MD Diagnoses at Discharge Discharge Diagnosis (1) Left lower lobe pneumonia: Status: Acute (2) Respiratory failure: Status: Acute Qualifiers: Chronicity: acute on chronic (3) COPD (chronic obstructive pulmonary disease): Status: Acute Qualifiers: COPD type: emphysema Emphysema type: centrilobular Qualified Code(s): J43.2 - Centrilobular emphysema (4) Smoker: Status: Acute (5) Multi-vessel coronary artery stenosis: Status: Acute (6) Seizure: Status: Acute (7) BPH (benign prostatic hyperplasia): Status: Acute Reason for Visit Reason for Visit: [facility] Hospital Course Hospital Course Geo Yip is a 76 year old male with a past medical history significant for AAA, BPH, coronary artery disease, COPD, hyperlipidemia, and seizure disorder who presents with shortness of breath and dyspnea x2 days, found to have acute on chronic hypoxic respiratory failure secondary to acute COPD exacerbation and left lower lobe pneumonia. Pneumococcal and Legionella antigens were negative. He was treated with ceftriaxone, azithromycin, and Solu-Medrol. He received breathing treatments. Patient improved and demanded to be discharged. He had returned to his baseline oxygen requirement therefore was discharged per his wishes in stable condition. I spoke with the daughter who wanted him to stay, but patient refused was persistent to be discharged. He was provided prescriptions for cefdinir, azithromycin and prednisone. He is to follow-up with his primary care provider in 1 to 2 weeks. Physical Exam Narrative: General: Patient is awake.? Very frail appearing. Head:? Normocephalic. Atraumatic. EOM intact. Neck: No JVD. Cardiovascular: RRR. No gallops. No murmurs. No peripheral edema. Lungs: Breath sounds are coarse.? There are diminished bilateral bases.? Rhonchi are present in the left lung base.? On nasal cannula support. Skin: No jaundice. No rashes.? Multiple bruises. Abdomen: Normal bowel sounds, abdomen soft and nontender. Genito Urinary: Genital exam not performed since complaints not related. Rectal: Rectal exam not performed since no symptoms indicated blood loss. Extremities: No cyanosis or clubbing. Musculoskeletal: Poor muscular development. Neurological: Moves all 4 extremities. No myoclonus. Discharge Data Studies Completed and Pending Completed Studies During Hospitalization Category Date Time Status XR chest 1V portable [id number] Stat Exams 05/01/22 11:15 Completed Pending at discharge Category Date Time Status Bacterial Antigen Routine Lab 05/01/22 16:48 Uncollected Blood Culture Stat Lab 05/01/22 13:24 Results Legionella Antigen STAT Routine Lab 05/01/22 16:48 Uncollected Sputum Culture and Gram Stain Stat Lab 05/01/22 12:16 Uncollected Urinalysis Stat Lab 05/01/22 11:15 Uncollected Radiology Impressions Chest X-Ray 05/01/22 11:15 IMPRESSION: Increasing consolidation and/or effusion in the left base Laboratory Results WBC 5.2 10^3/uL (4.0-10.0) 05/02/22 04:35 RBC 2.98 10^6/uL (4.1-5.3) L 05/02/22 04:35 Hgb 9.5 g/dL (11.7-16.6) L 05/02/22 04:35 Hct 31.6 % (42.0-52.0) L 05/02/22 04:35 MCV 106.0 fl (80-94) H 05/02/22 04:35 MCH 31.9 pg (28.0-34.0) 05/02/22 04:35 MCHC 30.1 g/dL (30.0-36.0) 05/02/22 04:35 RDW 13.2 % (12.1-15.1) 05/02/22 04:35 Plt Count 169 10^3/cmm (130-400) 05/02/22 04:35 MPV 9.6 fL (7.4-10.4) 05/02/22 04:35 Neut % (Auto) 85.2 % 05/02/22 04:35 Lymph % (Auto) 6.8 % 05/02/22 04:35 [place] % (Auto) 7.2 % 05/02/22 04:35 Eos % (Auto) 0.0 % 05/02/22 04:35 Baso % (Auto) 0.2 % 05/02/22 04:35 Neut # (Auto) 4.41 10^3/uL (1.8-7.7) 05/02/22 04:35 Lymph # (Auto) 0.4 10^3/uL (0.8-4.8) L 05/02/22 04:35 [place] # (Auto) 0.4 10^3/uL (0.2-0.9) 05/02/22 04:35 Eos # (Auto) 0.0 10^3/uL (0.0-0.8) 05/02/22 04:35 Baso # (Auto) 0.0 10^3/uL (0.0-0.1) 05/02/22 04:35 Nucleated RBC % (auto) 0 % 05/02/22 04:35 Nucleated RBCs # 0.0 /100WBC 05/02/22 04:35 Specimen Type Arterial 05/01/22 11:14 Sample Site Brachial, left 05/01/22 11:14 ABG pH 7.35 (7.35-7.45) 05/01/22 11:14 ABG pCO2 85.5 mmHg (35-45) H* 05/01/22 11:14 ABG pO2 50.5 mmHg (80.0-100.0) L 05/01/22 11:14 ABG HCO3 47.2 mmol/L (22-26) H 05/01/22 11:14 ABG O2 Saturation 86.0 05/01/22 11:14 ABG Base Excess 18.0 mmol/L (-2.0-2.0) H 05/01/22 11:14 Cam Test Pos 05/01/22 11:14 A-a O2 Gradient Not Reportable 05/01/22 11:14 Hematocrit 33.3 % (42-52) L 05/01/22 11:14 Hgb O2 Saturation 82.9 % (95-100) L 05/01/22 11:14 Carboxyhemoglobin 2.8 %THgb (0.4-20.1) 05/01/22 11:14 Methemoglobin 0.8 % (0.4-1.5) 05/01/22 11:14 Total Hemoglobin 10.9 g/dL (14-18) L 05/01/22 11:14 Sodium 142.0 mmol/L (131-143) 05/01/22 11:14 Potassium 4.3 mmol/L (3.5-5.0) 05/01/22 11:14 Glucose 90.0 mg/dL (70-115) 05/01/22 11:14 Ionized Calcium 1.2 mmol/L (1.1-1.4) 05/01/22 11:14 O2 Delivery Device Nc 05/01/22 11:14 O2 Liters/Min 6.0 % 05/01/22 11:14 Rubber Moulding Machine Operator ID Cak 05/01/22 11:14 Sodium 143 mmol/L (136-145) 05/02/22 04:35 Potassium 5.3 mmol/L (3.5-5.1) H 05/02/22 04:35 Chloride 97 mmol/L (98-107) L 05/02/22 04:35 Carbon Dioxide 42 mmol/L (22-29) H* 05/02/22 04:35 Anion Gap 9.3 (5-19) 05/02/22 04:35 BUN 20 mg/dL (8-23) 05/02/22 04:35 Creatinine 0.3 mg/dL (0.7-1.2) L 05/02/22 04:35 GFR Calculation Not Reportable 05/02/22 04:35 Glucose 112 mg/dL (65-115) 05/02/22 04:35 Calculated Osmolality 299 mOsm/kg (285-295) H 05/02/22 04:35 Calcium 8.6 mg/dL (8.5-10.5) 05/02/22 04:35 Phosphorus 3.3 mg/dL (2.5-4.5) 05/02/22 04:35 Magnesium 1.9 mg/dL (1.7-2.3) 05/02/22 04:35 Total Bilirubin 0.2 mg/dL (0.15-1.2) 05/01/22 10:40 AST 50 U/L (0-40) H 05/01/22 10:40 ALT 40 U/L (0-41) 05/01/22 10:40 Alkaline Phosphatase 119 U/L (40-130) 05/01/22 10:40 NT-Pro-B Natriuret Pep 3582 pg/mL (0-450) H 05/01/22 10:40 Total Protein 6.0 g/dL (6.6-8.7) L 05/01/22 10:40 Albumin 3.3 g/dL (3.5-5.2) L 05/01/22 10:40 Globulin 2.7 g/dL (1.3-4.6) 05/01/22 10:40 Procalcitonin 0.04 ng/mL (0-0.5) 05/01/22 11:54 Coronavirus 229E (PCR) Not detected (NOT DETECT) 05/01/22 11:30 Influenza Type A Ag negative (Negative) 05/01/22 11:30 Influenza Type B Ag negative (Negative) 05/01/22 11:30 SARS-CoV-2 (PCR) Not detected (NOT DETECT) 05/01/22 11:30 Vitals Last Vital Signs Temp 98.2 F 05/02/22 11:49 Pulse 90 05/02/22 11:49 Resp 18 05/02/22 11:49 BP 106/67 05/02/22 11:49 Pulse Ox 100 05/02/22 11:49 O2 Del Method 05/02/22 11:49 O2 Flow Rate 4 05/02/22 11:37 FiO2 40 05/01/22 20:00 Discharge Plan Discharge Patient Disposition: Hospice - Home Condition: Stable Prescriptions: New cefdinir 300 mg capsule 300 mg PO Q12H 7 Days Qty: 14 0RF azithromycin 250 mg tablet 250 mg PO DAILY 4 Days Qty: 4 0RF Rx Instructions: start on day 2 of therapy prednisone 20 mg tablet 40 mg PO DAILY 7 Days Qty: 28 0RF Continued fluticasone propion-salmeterol [Wixela Inhub] 250-50 mcg/dose blister with device 1 inh INHALATION BID clopidogrel 75 mg tablet 75 mg PO QPM simvastatin 80 mg tablet 80 mg PO BEDTIME hydrocodone-acetaminophen 10-325 mg tablet 1 tab PO Q6H PRN (Reason: Pain) tamsulosin 0.4 mg capsule 0.8 mg PO QAM ezetimibe 10 mg tablet 10 mg PO QAM Combivent Respimat 20-100 mcg/actuation mist 2 puff INHALATION Q4H ipratropium-albuterol 0.5 mg-3 mg(2.5 mg base)/3 mL solution for nebulization 3 ml INHALATION Q4H PRN (Reason: Shortness Of Breath) phenobarbital 97.2 mg tablet See Rx Instructions .ROUTE .COMPLEX Rx Instructions: 48.6mg (1/2 tab)po every morning and 97.2mg (1 tab) po at bedtime Vitamin C 500 mg Tablet 500 mg PO DAILY Nitrostat 0.4 mg Tablet, Sublingual 0.4 mg SUBLINGUAL Q5M PRN (Reason: Chest Pain) Rx Instructions: do not exceed 3 doses per episode EpiPen 0.3 mg/0.3 mL Auto-Injector 0.3 mg IM Q4H PRN (Reason: Anaphylaxis) Vitamin B-12 5,000 mcg Tablet, Sublingual 5,000 mcg SUBLINGUAL DAILY isosorbide mononitrate 30 mg tablet extended release 24 hr 30 mg PO QPM aspirin 81 mg tablet,delayed release (DR/EC) 81 mg PO QAM diltiazem HCl 60 mg capsule,extended release 12 hr 60 mg PO BID@ metoprolol tartrate 25 mg tablet 37.5 mg PO BID@ Discharge Orders: Discharge Order (Routine); Ordered 05/02/22 Ordered By: Avery Simon Referrals: [facility] [Outside] Carmelita Piper MD [Primary Care Provider] - 05/08/22 1:15 pm Discharge Diet: Advance as tolerated and Usual diet Discharge Activity: Resume usual activity and Increase activity as tolerated Patient Instructions: Prednisone (By mouth), Azithromycin (By mouth), Cefdinir (By mouth), COPD (Chronic Obstructive Pulmonary Disease) (DC), Opioid Safety Plan of Treatment: 1. Take medications as prescibed 2. Follow up with PCP Discharge Attestations Time Spent in Discharge Care*: greater than 30 min Status at Discharge: Cognitive status at discharge: cognitively intact , Behavioral status at discharge: cooperative , Overall status at discharge: patient is progressing back to baseline Quality Metrics Clinical Quality Measures [ No reported AMI, CVA or VTE this stay] Coding Level of Care Code Acute Chg FW DC note Diagnoses Left lower lobe pneumonia J18.9 Respiratory failure J96.90 Chronicity: acute on chronic COPD (chronic obstructive pulmonary disease) J43.2 COPD type: emphysema Emphysema type: centrilobular Smoker F17.200 Multi-vessel coronary artery stenosis I25.10 Seizure R56.9 BPH (benign prostatic hyperplasia) N40.0
--- NOTE | 2022-05-02 16:15 | PC.NURSE ---
Discharge paperwork, new medications and follow up appointment gone over with patients daughter. Verbalized understanding.
== END 2022-05-02 16:17 | disposition hospice, home (50) | DRG 193 ==
LOC: ER 12:30 → MEDSURG 14:28
PROVIDERS: Admitting Provider Internal Medicine; Emergency Provider Family Medicine; PCP Family Medicine; Visit Provider Internal Medicine
DX: J18.9 Pneumonia, unspecified organism (principal); J96.20 Acute and chronic respiratory failure, unspecified whether with hypoxia or hypercapnia; J43.2 Centrilobular emphysema; F17.200 Nicotine dependence, unspecified, uncomplicated; I25.10 Atherosclerotic heart disease of native coronary artery without angina pectoris; Z95.5 Presence of coronary angioplasty implant and graft; G40.909 Epilepsy, unspecified, not intractable, without status epilepticus; N40.0 Benign prostatic hyperplasia without lower urinary tract symptoms; I71.40 Abdominal aortic aneurysm, without rupture, unspecified; E78.5 Hyperlipidemia, unspecified; Z79.02 Long term (current) use of antithrombotics/antiplatelets; Z79.891 Long term (current) use of opiate analgesic; Z79.82 Long term (current) use of aspirin; I25.2 Old myocardial infarction
CPT/HCPCS: 36415; 36600; 71045; 80048; 80051; 80053; 82330; 82805; 83735; 83880; 84100; 84145; 85025; 87040; 87635; 87804; 94640; 94660; 96365; 96375; 99285; J0456; J0692; J0696; J2405; J2920; J2930; J7030; J7050; J7626